=== PATIENT | female | born 1985 | race Hispanic/Latino ===

== ENCOUNTER 2020-06-18 16:15 | Inpatient (IN) | payer MEDICAID ==
[2020-06-18] MEDS ORDERED: MINERAL OIL/PETROLATUM, WHITE OPHTH OINT 3.5 GM OU PRN (16:32)
[2020-06-18] MEDS ORDERED: LIP THERAPY VASELINE TP PRN (16:32)
[2020-06-18] MEDS ORDERED: SODIUM CHLORIDE 0.9% 1000 ML 1,000 ML IV ONE (16:33)
--- NOTE | 2020-06-18 16:37 | Emergency Department Report ---
HPI - General Time Seen by Provider: 06/18/20 16:22 - HPI HPI: This is a 34-year-old female who presents to the emergency department via EMS from home after she was found unresponsive with suspicion of an overdose. Patient's boyfriend found her unresponsive and told EMS that she has a history of abusing GHB. EMS gave her 4 mg of Narcan without any response. They did intubate the patient but she vomited as soon as she was intubated so they pulled it out and suctioned her airway. She presents getting bag valve ventilation. Unknown if there is any other past medical history. Patient is a poor historian secondary to her current medical condition. The patient has snoring, shallow respirations and bradypnea and the patient was intubated for protection of airway. ED Past Medical Hx - Surgical History Hx Cholecystectomy: Yes - Social History Smoking Status: Current Every Day Smoker Substance Use Type: Alcohol, Marijuana - Medications Home Medications: Home Medications Medication Instructions Recorded Confirmed Last Taken Type Dicyclomine [Bentyl] 10 mg PO TID PRN 07/29/14 07/29/14 07/29/14 04:00 History ED Review of Systems ROS: Stated complaint: OVERDOSE/UNRESPONSIVE Other details as noted in HPI Comment: Unobtainable due to pts medical conditions Physical Exam - Physical Exam Physical Exam: GENERAL: Patient is ill-appearing and unresponsive. HENT: Normocephalic. Atraumatic. Patient has moist mucous membranes. EYES: Pupils are constricted and equal, reactive to light. NECK: Supple. Trachea is midline. CHEST/LUNGS: Clear to auscultation. Patient has shallow snoring respirations with bradypnea. HEART/CARDIOVASCULAR: Regular. There is bradycardia. There is no murmur. ABDOMEN: Abdomen is soft. Patient has normal bowel sounds. SKIN: Skin is warm and dry. NEURO: Patient is unresponsive. She will spontaneously move her toes at times. Nonverbal. Does not spontaneously open eyes. MUSCULOSKELETAL: There is no obvious deformity. ED Course - Reevaluation(s) Reevaluation #1: 06/18/20 20:45 Labs 06/18/20 06/18/20 06/18/20 16:58 17:08 17:08 WBC 8.3 RBC 5.00 Hgb 11.8 Hct 36.6 MCV 73 L MCH 24 L MCHC 32 RDW 15.2 Plt Count 190 Lymph % (Auto) 13.0 L [place] % (Auto) 6.4 Eos % (Auto) 1.9 Baso % (Auto) 0.9 Lymph # (Auto) 1.1 L [place] # (Auto) 0.5 Eos # (Auto) 0.2 Baso # (Auto) 0.1 Seg Neutrophils % 77.8 H Seg Neutrophils # 6.4 Sodium 138 Potassium 4.2 Chloride 101.6 Carbon Dioxide 21 L Anion Gap 20 BUN 10 Creatinine 0.7 Estimated GFR > 60 BUN/Creatinine Ratio 14 Glucose 120 H Lactic Acid Calcium 9.2 Total Bilirubin 0.20 AST 18 ALT 16 Alkaline Phosphatase 64 Ammonia Total Creatine Kinase 293 H Troponin T < 0.010 Total Protein 6.8 Albumin 4.1 Albumin/Globulin Ratio 1.5 TSH Urine Opiates Screen Presumptive negative Urine Methadone Screen Presumptive negative Ur Barbiturates Screen Presumptive negative Ur Phencyclidine Scrn Presumptive negative Ur Amphetamines Screen Presumptive positive U Benzodiazepines Scrn Presumptive negative Urine Cocaine Screen Presumptive negative U Marijuana (THC) Screen Presumptive negative Drugs of Abuse Note Disclamer Plasma/Serum Alcohol 06/18/20 06/18/20 06/18/20 17:08 17:08 17:08 WBC RBC Hgb Hct MCV MCH MCHC RDW Plt Count Lymph % (Auto) Harnett % (Auto) Eos % (Auto) Baso % (Auto) Lymph # (Auto) H[place]ett # (Auto) Eos # (Auto) Baso # (Auto) Seg Neutrophils % Seg Neutrophils # Sodium Potassium Chloride Carbon Dioxide Anion Gap BUN Creatinine Estimated GFR BUN/Creatinine Ratio Glucose Lactic Acid 0.60 L Calcium Total Bilirubin AST ALT Alkaline Phosphatase Ammonia 37.0 Total Creatine Kinase Troponin T Total Protein Albumin Albumin/Globulin Ratio TSH 1.430 Urine Opiates Screen Urine Methadone Screen Ur Barbiturates Screen Ur Phencyclidine Scrn Ur Amphetamines Screen U Benzodiazepines Scrn Urine Cocaine Screen U Marijuana (THC) Screen Drugs of Abuse Note Plasma/Serum Alcohol 06/18/20 17:08 WBC RBC Hgb Hct MCV MCH MCHC RDW Plt Count Lymph % (Auto) Harnett % (Auto) Eos % (Auto) Baso % (Auto) Lymph # (Auto) Harnett # (Auto) Eos # (Auto) Baso # (Auto) Seg Neutrophils % Seg Neutrophils # Sodium Potassium Chloride Carbon Dioxide Anion Gap BUN Creatinine Estimated GFR BUN/Creatinine Ratio Glucose Lactic Acid Calcium Total Bilirubin AST ALT Alkaline Phosphatase Ammonia Total Creatine Kinase Troponin T Total Protein Albumin Albumin/Globulin Ratio TSH Urine Opiates Screen Urine Methadone Screen Ur Barbiturates Screen Ur Phencyclidine Scrn Ur Amphetamines Screen U Benzodiazepines Scrn Urine Cocaine Screen U Marijuana (THC) Screen Drugs of Abuse Note Plasma/Serum Alcohol < 0.01 Reevaluation #2: 06/18/20 20:45 Vital Signs 06/18/20 06/18/20 06/18/20 16:30 16:49 17:00 Pulse Rate 76 75 68 Respiratory 10 L 17 Rate Blood Pressure 119/69 119/86 119/86 O2 Sat by Pulse 100 100 100 Oximetry 06/18/20 06/18/20 06/18/20 17:30 18:31 19:00 Pulse Rate 65 59 L Respiratory 12 13 Rate Blood Pressure 110/77 110/77 114/73 O2 Sat by Pulse 100 100 100 Oximetry 06/18/20 06/18/20 06/18/20 19:30 20:00 20:30 Pulse Rate 65 73 Respiratory 15 16 20 Rate Blood Pressure 131/86 129/83 O2 Sat by Pulse 100 100 100 Oximetry - ABG Interpretation Ph: 7.295 PCO2: 47 PO2: 445 Bicarbonate: 22 Interpretation: respiratory alkalosis - Intubation Time Out Performed: Yes Sedative: Ketamine Mg Given: 100 Paralytic: Rocuronium Mg Given: 100 Laryngoscope: other ([place] scope) Size: 4 ET Tube Size: 7.5 Tube Secured Depth (cm): 23 Tube Secured Location: lips Tube Placement Confirmation: visualized tube passing t, equal breath sounds bilat, no breath sounds over epi, confirmation by capnometr Patient Tolerated Procedure: well Intubation Complications: none ED Medical Decision Making - Lab Data Result diagrams: 06/18/20 17:08 06/18/20 17:08 - EKG Data -: EKG Interpreted by [facility] EKG shows normal: sinus rhythm, axis, intervals, QRS complexes, ST-T waves Rate: normal - EKG Data When compared to previous EKG there are: previous EKG unavailable Interpretation: normal EKG - Radiology Data Radiology results: report reviewed, image reviewed CT of the head does not show any acute intracranial process including no ischemia, shift, mass, bleeding or skull fracture. CT cervical spine wo con INDICATION / CLINICAL INFORMATION: 34 years Female; AMS, found on ground. TECHNIQUE: Axial CT images of the cervical spine were obtained. Sagittal and coronal reformatted images were produced. All CT scans at this location are performed using CT dose reduction for ALARA by means of automated exposure control. COMPARISON: None available. FINDINGS: POST-SURGICAL CHANGES: None. ALIGNMENT: Normal cervical lordosis seen without significant scoliosis. VERTEBRAE: No signs of fracture. Vertebral bodies are grossly normal in height throughout. No significant facet joint disease or osseous foraminal narrowing appreciated. INTRAVERTEBRAL DISCS:Disc spaces are fairly well- maintained throughout without significant canal stenosis. PARASPINAL SOFT TISSUES: No significant abnormality. ADDITIONAL FINDINGS: Patient is intubated. NG tube noted. Secretions seen layering in the nasopharynx. Scarring type changes seen in the right lung apex. IMPRESSION: 1. No signs of acute bony trauma to the cervical spine. CHEST 1 VIEW INDICATION / CLINICAL INFORMATION: ETT placement. COMPARISON: None available. FINDINGS: SUPPORT DEVICES: Tip of endotracheal tube is positioned approximately 3.5 cm above the jacy. Nasogastric tube tip adjacent to the level of the body of the stomach. HEART / MEDIASTINUM: No significant abnormality. LUNGS / PLEURA: There is complete atelectasis of the right upper lobe. There is volume loss in the right hemithorax. The left lung is clear.. No pneumothorax. ADDITIONAL FINDINGS: No significant additional findings. IMPRESSION: 1. Endotracheal tube appears in satisfactory position radiographically. There is complete atelectasis of the right upper lobe. - Medical Decision Making This patient presented unresponsive with a suspicion of a drug overdose based on information given to EMS by the boyfriend. EMS initially intubated the patient but they state that she vomited shortly afterwards and they pulled the tube back out. The patient had no response to 4 mg of Narcan. When the patient arrived to the emergency department she had snoring shallow respirations with bradypnea and therefore the patient was intubated for protection of airway and with signs of respiratory distress. Chest x-ray shows appropriate placement of the endotracheal tube. There is complete atelectasis of the right upper lung. CT scan of the head without contrast did not show any bleed, shift, mass, ischemia, or any other acute process. Since the patient was found down on the floor unresponsive, a CT scan of the cervical spine was also completed that did not show any fracture, subluxation, or any acute process. Patient's labs have been mostly unremarkable including CBC, metabolic panel, urinalysis, TSH, ammonia, troponin, blood alcohol level. Urine drug screen positive for amphetamines. Patient will be admitted to the hospital for further evaluation and treatment and was accepted for admission by the hospitalist, Dr. Art. Critical Care Time: Yes Critical care time in (mins) excluding proc time.: 35 Critical care attestation.: If time is entered above; I have spent that time in minutes in the direct care of this critically ill patient, excluding procedure time. Critical care time was spent on this patient in doing her initial evaluation, multiple reevaluat ions, ordering and interpretation of labs and imaging, IV fluid resuscitation, and discussion with the hospitalist service. This does not include the time spent doing the intubation procedure. Critical Care Time: 35 minutes ED Disposition Clinical Impression: Unresponsive, Amphetamine abuse Acute respiratory failure Qualifiers: Respiratory failure complication: unspecified whether with hypoxia or hypercapnia Qualified Code(s): J96.00 - Acute respiratory failure, unspecified whether with hypoxia or hypercapnia Disposition: 09 OP ADMIT IP TO THIS HOSP Is pt being admited?: Yes Condition: Serious Time of Disposition: 18:28
[2020-06-18] MEDS ORDERED: KETAMINE 500 MG/5 ML VIAL MDV ONE (16:54)
[2020-06-18] MEDS ORDERED: ROCURONIUM 50 MG/5 ML INJ IV ONE (16:54)
--- NOTE | 2020-06-18 17:11 | XRay Report ---
ABDOMEN 1 VIEW(S) INDICATION / CLINICAL INFORMATION: verify OG placement. COMPARISON: None available. FINDINGS: TUBES / LINES: OG tube tip projects at the level of the body of the stomach. BOWEL GAS PATTERN/EXTRALUMINAL GAS: There are gas-filled loop small bowel mid abdomen. There is evide nce of some fold thickening within loops in the left midabdomen. The bowel does not appear abnormally dilated. No pneumatosis or secondary signs of free air. ADDITIONAL FINDINGS: No significant additional findings. IMPRESSION: 1. Nasogastric tube appears in satisfactory position radiographically. There is fold thickening noted in loops of small bowel in the left midabdomen possibly representing an enteritis. Signer Name: Kit Beach MD Signed: 06/18/2020 5:07 PM Workstation Name: [id number]
--- NOTE | 2020-06-18 17:12 | XRay Report ---
CHEST 1 VIEW INDICATION / CLINICAL INFORMATION: ETT placement. COMPARISON: None available. FINDINGS: SUPPORT DEVICES: Tip of endotracheal tube is positioned approximately 3.5 cm above the jacy. Nasoga stric tube tip adjacent to the level of the body of the stomach. HEART / MEDIASTINUM: No significant abnormality. LUNGS / PLEURA: There is complete atelectasis of the right upper lobe. There is volume loss in the ri ght hemithorax. The left lung is clear.. No pneumothorax. ADDITIONAL FINDINGS: No significant additional findings. IMPRESSION: 1. Endotracheal tube appears in satisfactory position radiographically. There is complete atelectasis of the right upper lobe. Signer Name: Kit Beach MD Signed: 06/18/2020 5:08 PM Workstation Name: [id number]
[2020-06-18 17:18] LABS: Basophils # (Auto) 0.1 K/mm3 (0.0-0.1); Basophils % (Auto) 0.9 % (0.0-1.8); Eosinophils # (Auto) 0.2 K/mm3 (0.0-0.4); Eosinophils % (Auto) 1.9 % (0.0-4.3); Hematocrit 36.6 % (30.3-42.9); Hemoglobin 11.8 gm/dl (10.1-14.3); Lymphocytes # (Auto) 1.1 K/mm3 (1.2-5.4); Mean Corpuscular HGB Conc 32 % (30-34); Mean Corpuscular Volume 73 fl (79-97); Monocytes # (Auto) 0.5 K/mm3 (0.0-0.8); Monocytes % (Auto) 6.4 % (0.0-7.3); Platelet Count 190 K/mm3 (140-440); Red Cell Distribution Width 15.2 % (13.2-15.2)
[2020-06-18 17:40] LABS: Amphetamine Screen,Urine PRESUMPTIVE POSITIVE; Benzodiazepines Screen,Urine PRESUMPTIVE NEGATIVE; Cannabinoid Screen,Urine PRESUMPTIVE NEGATIVE; Cocaine Screen,Urine PRESUMPTIVE NEGATIVE; Methadone Screen,Urine PRESUMPTIVE NEGATIVE; Opiate Screen,Urine PRESUMPTIVE NEGATIVE
[2020-06-18 17:42] LABS: Alanine Aminotransferase 16 units/L (7-56); Albumin 4.1 g/dL (3.9-5); Blood Urea Nitrogen 10 mg/dL (7-17); Calcium 9.2 mg/dL (8.4-10.2); Hemolysis Index 16
[2020-06-18 18:02] LABS: BUN/Creatinine Ratio 14
[2020-06-18 18:11] LABS: Bacteria,Urine 1+ /HPF (Negative); Bilirubin,Urine NEG (Negative); Blood,Urine NEG (Negative); Color,Urine Yellow (Yellow); Hyaline Casts,Urine 1 /LPF; Mucus,Urine FEW /HPF; Protein,Urine <15 mg/dL mg/dL (Negative); Urobilinogen,Urine < 2.0 mg/dL (<2.0)
--- NOTE | 2020-06-18 18:14 | Cat Scan Report ---
CT cervical spine wo con INDICATION / CLINICAL INFORMATION: 34 years Female; AMS, found on ground. TECHNIQUE: Axial CT images of the cervical spine were obtained. Sagittal and coronal reformatted images were pr oduced. All CT scans at this location are performed using CT dose reduction for ALARA by means of aut omated exposure control. COMPARISON: None available. FINDINGS: POST-SURGICAL CHANGES: None. ALIGNMENT: Normal cervical lordosis seen without significant scoliosis. VERTEBRAE: No signs of fracture. Vertebral bodies are grossly normal in height throughout. No signif icant facet joint disease or osseous foraminal narrowing appreciated. INTRAVERTEBRAL DISCS:Disc spaces are fairly well-maintained throughout without significant canal sten osis. PARASPINAL SOFT TISSUES: No significant abnormality. ADDITIONAL FINDINGS: Patient is intubated. NG tube noted. Secretions seen layering in the nasopharynx . Scarring type changes seen in the right lung apex. IMPRESSION: 1. No signs of acute bony trauma to the cervical spine. Signer Name: Cruzito Astudillo MD, III Signed: 06/18/2020 6:09 PM Workstation Name: [email or web address]
--- NOTE | 2020-06-18 18:15 | Cat Scan Report ---
CT head/brain wo con INDICATION / CLINICAL INFORMATION: 34 years Female; Altered mental status. TECHNIQUE: Routine CT head without contrast. All CT scans at this location are performed using CT dos e reduction for ALARA by means of automated exposure control. COMPARISON: None. FINDINGS: BRAIN / INTRACRANIAL CONTENTS: The motion and beam hardening degrade the image quality. However, the brain appears to demonstrate appropriate attenuation. The ventricular system is within normal limits in size and configuration. There is no gross CT evidence of acute intracranial hemorrhage or signific ant mass effect. ORBITS: No significant abnormality of visualized orbits. SINUSES / MASTOIDS: There is presence of endotracheal and gastric tubes with opacification of the ganga al cavities. The paranasal sinuses are pneumatized. CRANIOCERVICAL JUNCTION: No significant abnormality. ADDITIONAL FINDINGS: None. IMPRESSION: 1. There is no clear CT evidence of acute intracranial process. Signer Name: Shaji Cyr MD Signed: 06/18/2020 6:10 PM Workstation Name: [id number]
[2020-06-18 19:14] LABS: ABG Base Excess -4.2 mmol/L (-2.0-3.0); ABG HCO3 22.3 mmol/L (20.0-26.0); ABG Methemoglobin 0.5 % (0.0-1.5); ABG Oxygen Saturation 99.6 % (95.0-99.0); ABG PH 7.295 pH Units (7.350-7.450)
[2020-06-18 19:19] LABS: ABG PO2 445.3 mm Hg (80.0-90.0)
[2020-06-18] MEDS ORDERED: LORazepam 2 MG/ML VIAL ONE ×3 (19:43→22:23)
[2020-06-18] MEDS: LORazepam 2 MG/ML VIAL IV PRN ×3 (19:45→23:34)
[2020-06-18 21:07] LABS: HCG Qualitative,Urine Negative (Negative)
[2020-06-18] MEDS ORDERED: HYDROmorphone 1 MG/1 ML INJ IV PRN (22:54)
[2020-06-18] MEDS ORDERED: ONDANSETRON 4 MG/2 ML INJ IV PRN (22:54)
[2020-06-18] MEDS ORDERED: ACETAMINOPHEN 325 MG TAB PO PRN (22:54)
--- NOTE | 2020-06-18 22:54 | History and Physical Report ---
History of Present Illness Date of examination: 06/18/20 Date of admission: 06/18/20 18:29 Chief complaint: Unresponsive for few hours History of present illness: 34-year-old female brought in by EMS after being found unresponsive with suspicion of overdose. No significant past medical history. Patient has a history of abusing GHB and amphetamines. Patient was given Narcan 4 mg without any response. Patient vomited on the field airway was suctioned. Patient was given bag mask valve ventilation. There in the emergency room patient was intubated for protection of airway. Patient has bradypnea. No fever or chills. No exposure to coronavirus as far as known. No cough prior to unresponsive episode. -medical history none. - Surgical History Cholecystectomy: Yes - Social History Smoking Status: Current Every Day Smoker Substance Use Type: Alcohol, Marijuana Family history Htn - Medications Home Medications: Home Medications Medication Instructions Recorded Confirmed Last Taken Type Dicyclomine [Bentyl] 10 mg PO TID PRN 07/29/14 07/29/14 07/29/14 04:00 History Review of Systems ROS: Stated complaint: OVERDOSE/UNRESPONSIVE Constitutional intubated Neck no neck stiffness no lymph gland enlargement Chest and lungs intubated for protection of airway CVS no chest pain no diaphoresis no palpitations GI no nausea no vomiting no diarrhea Genitourinary system no dysuria no flank pain Musculoskeletal system no muscle pains no joint pains 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 Skin no rash no itching Psychiatric no depression no homicidal or suicidal tendencies Hematologic no lymphedema or bruising Endocrine no polydipsia no polyuria no cold intolerance no heat intolerance Medications and Allergies Allergies Allergy/AdvReac Type Severity Reaction Status Date / Time No Known Allergies Allergy Verified 07/29/14 08:37 Home Medications Medication Instructions Recorded Confirmed Last Taken Type Dicyclomine [Bentyl] 10 mg PO TID PRN 07/29/14 07/29/14 07/29/14 04:00 History Active Meds: Active Medications Hydrophilic Ointment (Vaseline Lip Therapy) 1 applic TP Q2HR PRN PRN Reason: Dry Lips Propofol (Diprivan 10 Mg/Ml) 1,000 mg in 100 mls @ 3.416 mls/hr IV TITR LATRICE; Protocol Last Admin: 06/18/20 21:01 Dose: 50 mcg/kg/min, 34.156 mls/hr Documented by: Lorazepam (Ativan) 2 mg IV Q1H PRN PRN Reason: Agitation Last Admin: 06/18/20 20:49 Dose: 2 mg Documented by: Multi-Ingred Cream/Lotion/Oil/Oint (Artificial Tears Ophth Oint) 1 applic OU Q4HR PRN PRN Reason: Dry Eye(s) Exam - Physical Exam Narrative exam: Patient is intubated and unresponsive - Constitutional Vitals: Temp Pulse Resp BP Pulse Ox 97.9 F 77 18 110/71 100 06/18/20 20:00 06/18/20 22:30 06/18/20 22:30 06/18/20 22:30 06/18/20 22:30 General appearance: Present: severe distress, well-nourished - EENT Eyes: Present: PERRL - Neck Neck: Present: supple, normal ROM - Respiratory Respiratory effort: normal Respiratory: bilateral: CTA - Cardiovascular Heart rate: 78 Rhythm: regular Heart Sounds: Present: S1 & S2. Absent: rub, click - Extremities Extremities: pulses symmetrical, No edema Peripheral Pulses: within normal limits - Abdominal General gastrointestinal: Present: soft, non-tender, non-distended, normal bowel sounds Female genitourinary: Present: normal - Rectal Rectal Exam: deferred - Integumentary Integumentary: Present: clear, warm, dry - Musculoskeletal Musculoskeletal: generalized weakness - Psychiatric Psychiatric: appropriate mood/affect, other (Patient intubated) - Neurologic Neurologic: moves all extremities - Allied Health Allied health notes reviewed: nursing, case management HEART Score - HEART Score Troponin: Troponin T < 0.010 ng/mL (0.00-0.029) 06/18/20 17:08 Results - Labs CBC & Chem 7: 06/20/20 05:39 06/20/20 05:39 Labs: Laboratory Last Values WBC 8.3 K/mm3 (4.5-11.0) 06/18/20 17:08 RBC 5.00 M/mm3 (3.65-5.03) 06/18/20 17:08 Hgb 11.8 gm/dl (10.1-14.3) 06/18/20 17:08 Hct 36.6 % (30.3-42.9) 06/18/20 17:08 MCV 73 fl (79-97) L 06/18/20 17:08 MCH 24 pg (28-32) L 06/18/20 17:08 MCHC 32 % (30-34) 06/18/20 17:08 RDW 15.2 % (13.2-15.2) 06/18/20 17:08 Plt Count 190 K/mm3 (140-440) 06/18/20 17:08 Lymph % (Auto) 13.0 % (13.4-35.0) L 06/18/20 17:08 [place] % (Auto) 6.4 % (0.0-7.3) 06/18/20 17:08 Eos % (Auto) 1.9 % (0.0-4.3) 06/18/20 17:08 Baso % (Auto) 0.9 % (0.0-1.8) 06/18/20 17:08 Lymph # (Auto) 1.1 K/mm3 (1.2-5.4) L 06/18/20 17:08 [place] # (Auto) 0.5 K/mm3 (0.0-0.8) 06/18/20 17:08 Eos # (Auto) 0.2 K/mm3 (0.0-0.4) 06/18/20 17:08 Baso # (Auto) 0.1 K/mm3 (0.0-0.1) 06/18/20 17:08 Seg Neutrophils % 77.8 % (40.0-70.0) H 06/18/20 17:08 Seg Neutrophils # 6.4 K/mm3 (1.8-7.7) 06/18/20 17:08 ABG pH 7.295 pH Units (7.350-7.450) L 06/18/20 18:45 ABG pCO2 47.0 mm Hg 06/18/20 18:45 ABG pO2 445.3 mm Hg (80.0-90.0) H 06/18/20 18:45 ABG HCO3 22.3 mmol/L (20.0-26.0) 06/18/20 18:45 ABG O2 Saturation 99.6 % (95.0-99.0) H 06/18/20 18:45 ABG O2 Content 17.0 (0.0-44) 06/18/20 18:45 ABG Base Excess -4.2 mmol/L (-2.0-3.0) L 06/18/20 18:45 ABG Hemoglobin 11.5 gm/dl (12.0-16.0) L 06/18/20 18:45 ABG Carboxyhemoglobin 1.5 % (0.0-5.0) 06/18/20 18:45 ABG Methemoglobin 0.5 % (0.0-1.5) 06/18/20 18:45 Oxyhemoglobin 97.6 % (95.0-99.0) 06/18/20 18:45 FiO2 100 % 06/18/20 18:45 Sodium 138 mmol/L (137-145) 06/18/20 17:08 Potassium 4.2 mmol/L (3.6-5.0) 06/18/20 17:08 Chloride 101.6 mmol/L (98-107) 06/18/20 17:08 Carbon Dioxide 21 mmol/L (22-30) L 06/18/20 17:08 Anion Gap 20 mmol/L 06/18/20 17:08 BUN 10 mg/dL (7-17) 06/18/20 17:08 Creatinine 0.7 mg/dL (0.6-1.2) 06/18/20 17:08 Estimated GFR > 60 ml/min 06/18/20 17:08 BUN/Creatinine Ratio 14 % 06/18/20 17:08 Glucose 120 mg/dL (65-100) H 06/18/20 17:08 Lactic Acid 0.60 mmol/L (0.7-2.0) L 06/18/20 17:08 Calcium 9.2 mg/dL (8.4-10.2) 06/18/20 17:08 Total Bilirubin 0.20 mg/dL (0.1-1.2) 06/18/20 17:08 AST 18 units/L (5-40) 06/18/20 17:08 ALT 16 units/L (7-56) 06/18/20 17:08 Alkaline Phosphatase 64 units/L (35-129) 06/18/20 17:08 Ammonia 37.0 umol/L (25-60) 06/18/20 17:08 Total Creatine Kinase 293 units/L (30-135) H 06/18/20 17:08 Troponin T < 0.010 ng/mL (0.00-0.029) 06/18/20 17:08 Total Protein 6.8 g/dL (6.3-8.2) 06/18/20 17:08 Albumin 4.1 g/dL (3.9-5) 06/18/20 17:08 Albumin/Globulin Ratio 1.5 % 06/18/20 17:08 TSH 1.430 mlU/mL (0.270-4.200) 06/18/20 17:08 Urine Color Yellow (Yellow) 06/18/20 Unknown Urine Turbidity Clear (Clear) 06/18/20 Unknown Urine pH 6.0 (5.0-7.0) 06/18/20 Unknown Ur Specific [place] 1.013 (1.003-1.030) 06/18/20 Unknown Urine Protein <15 mg/dl mg/dL (Negative) 06/18/20 Unknown Urine Glucose (UA) Neg mg/dL (Negative) 06/18/20 Unknown Urine Ketones Neg mg/dL (Negative) 06/18/20 Unknown Urine Blood Neg (Negative) 06/18/20 Unknown Urine Nitrite Neg (Negative) 06/18/20 Unknown Urine Bilirubin Neg (Negative) 06/18/20 Unknown Urine Urobilinogen < 2.0 mg/dL (<2.0) 06/18/20 Unknown Ur Leukocyte Esterase Neg (Negative) 06/18/20 Unknown Urine WBC (Auto) 1.0 /HPF (0.0-6.0) 06/18/20 Unknown Urine RBC (Auto) 1.0 /HPF (0.0-6.0) 06/18/20 Unknown U Epithel Cells (Auto) 1.0 /HPF (0-13.0) 06/18/20 Unknown Urine Bacteria (Auto) 1+ /HPF (Negative) 06/18/20 Unknown Hyaline Casts 1 /LPF 06/18/20 Unknown Urine Mucus Few /HPF 06/18/20 Unknown Urine HCG, Qual Negative (Negative) 06/18/20 20:47 Urine Opiates Screen Presumptive negative 06/18/20 16:58 Urine Methadone Screen Presumptive negative 06/18/20 16:58 Ur Barbiturates Screen Presumptive negative 06/18/20 16:58 Ur Phencyclidine Scrn Presumptive negative 06/18/20 16:58 Ur Amphetamines Screen Presumptive positive 06/18/20 16:58 U Benzodiazepines Scrn Presumptive negative 06/18/20 16:58 Urine Cocaine Screen Presumptive negative 06/18/20 16:58 U Marijuana (THC) Screen Presumptive negative 06/18/20 16:58 Drugs of Abuse Note Disclamer 06/18/20 16:58 Plasma/Serum Alcohol < 0.01 % (0-0.07) 06/18/20 17:08 Short CBC 06/19/20 06/20/20 Range/Units 02:03 05:39 WBC 7.2 7.9 (4.5-11.0) K/mm3 Hgb 11.1 11.0 (10.1-14.3) gm/dl Hct 34.3 34.1 (30.3-42.9) % Plt Count 207 208 (140-440) K/mm3 BMP 06/19/20 06/20/20 02:03 05:39 Sodium 139 142 Potassium 3.4 L 3.5 L Chloride 104.2 105.8 Carbon Dioxide 24 27 BUN 9 10 Creatinine 0.6 0.6 Glucose 100 92 Calcium 7.9 L 8.0 L Liver Function 06/19/20 Range/Units 02:03 Total Bilirubin 0.40 (0.1-1.2) mg/dL AST 163 H (5-40) units/L ALT 163 H (7-56) units/L Alkaline Phosphatase 128 (35-129) units/L Albumin 3.1 L (3.9-5) g/dL [place]/IV: IV Catheter Type [Right INT / Saline Lock Antecubital] IV Catheter Type [Left Hand] INT / Saline Lock Assessment and Plan Assessment and plan: Critical care statement The high probability OF a clinically significant sudden or life-threatening deterioration of the cardiorespiratory system and endocrine system required my full and direct attention, intervention and postoperative management. The [facility] critical l care time was 40 minutes. The time is in addition to time spent performing reported procedures but includes the followin: Data review and interpretation 2: Patient assessment and monitoring of vital signs 3: Documentation 4:: Medication orders and management Advance Directives: Yes (Full code) VTE prophylaxis?: Chemical Plan of care discussed with patient/family: Yes - Patient Problems (1) Acute respiratory failure Current Visit: Yes Status: Acute Qualifiers: Respiratory failure complication: unspecified whether with hypoxia or hypercapnia Qualified Code(s): J96.00 - Acute respiratory failure, unspecified whether with hypoxia or hypercapnia Plan to address problem: Secondary to amphetamine/GHB overdose Continue wean vent support and wean as possible Dental Billing Specialist consult requested (2) Amphetamine abuse Current Visit: Yes Status: Chronic Plan to address problem: Continue weaning Counseling after extubation and when patient is more alert and oriented (3) Acute metabolic encephalopathy Current Visit: Yes Status: Acute Plan to address problem: Secondary to amphetamine abuse and respiratory failure IV fluids IV antibiotics empirically Possible aspiration pneumonia Discontinue IV antibiotics if afebrile and no high white count and no source of infection Dental Billing Specialist consult requested (4) Nicotine dependence Current Visit: Yes Status: Chronic Qualifiers: Nicotine product type: cigarettes Plan to address problem: On NicoDerm patch Patient consult because patient is intubated Will consult once the patient is extubated and alert and oriented (5) DVT prophylaxis Current Visit: Yes Status: Acute Plan to address problem: On heparin and GI prophylaxis
[2020-06-18] MEDS ORDERED: D5W/0.9% NACL 1,000 ML IV SCH (23:00)
[2020-06-18] MEDS ORDERED: CEFEPIME/NS 2 GM/100 ML 2 GM/100 ML BAG IV ONE (23:18)
[2020-06-18] MEDS ORDERED: FAMOTIDINE 20 MG/2 ML INJ IV ONE (23:19)
[2020-06-18] MEDS: CEFEPIME/NS 2 GM/100 ML 2 GM/100 ML BAG IV SCH (23:33)
[2020-06-18] MEDS: FAMOTIDINE 20 MG/2 ML INJ IV SCH (23:33)
[2020-06-18] MEDS ORDERED: fentaNYL 100 MCG/2 ML INJ IV PRN (23:47)
[2020-06-19] MEDS ORDERED: fentaNYL DRIP Premix 2,000 MCG/100 ML BAG IV ONE ×2 (00:39→11:24)
[2020-06-19] MEDS ORDERED: PROPOFOL 1,000 MG/100 ML BOTTLE IV ONE ×3 (05:58→12:25)
[2020-06-19] MEDS ORDERED: LORazepam 2 MG/ML VIAL ONE (09:30)
[2020-06-19] MEDS: LORazepam 2 MG/ML VIAL IV PRN (09:30)
[2020-06-19] MEDS: fentaNYL DRIP Premix 2,000 MCG/100 ML BAG IV SCH ×2 (11:00→17:55)
[2020-06-19] MEDS ORDERED: FENTANYL DRIP IV ONE ×2 (11:24→17:53)
[2020-06-19] MEDS ORDERED: SODIUM CHLORIDE IV ONE (12:25)
[2020-06-19] MEDS ORDERED: NORepinephrine/NS 4 MG-250 ML 4 MG/250 ML BAG IV ONE ×2 (12:25→19:22)
[2020-06-19] MEDS ORDERED: NOREPINEPHRINE IV ONE (12:25)
[2020-06-19] MEDS ORDERED: NORepinephrine/NS 4 MG-250 ML 4 MG/250 ML BAG IV SCH (12:30)
[2020-06-19] MEDS: NORepinephrine/NS 4 MG-250 ML IV SCH ×2 (12:30→19:34)
[2020-06-19] MEDS ORDERED: FAMOTIDINE 20 MG/2 ML INJ IV ONE (17:50)
[2020-06-19] MEDS ORDERED: CEFEPIME IV ONE (17:50)
[2020-06-19] MEDS ORDERED: NS IV ONE (17:50)
[2020-06-19] MEDS: CEFEPIME/NS 2 GM/100 ML 2 GM/100 ML BAG IV SCH ×3 (18:03→22:03)
[2020-06-19] MEDS: FAMOTIDINE 20 MG/2 ML INJ IV SCH ×2 (18:04→22:05)
--- NOTE | 2020-06-19 23:30 | Progress Note ---
Assessment and Plan Assessment and plan: 34-year-old female brought in by EMS after being found unresponsive with suspicion of overdose. No significant past medical history. Patient has a history of abusing GHB and amphetamines. Patient was given Narcan 4 mg without any response. Patient vomited on the field airway was suctioned. Patient was given bag mask valve ventilation. There in the emergency room patient was intubated for protection of airway. Patient has bradypnea. No fever or chills. No exposure to coronavirus as far as known. No cough prior to unresponsive episode. - Patient Problems (1) Acute respiratory failure Current Visit: Yes Status: Acute Qualifiers: Respiratory failure complication: unspecified whether with hypoxia or hypercapnia Qualified Code(s): J96.00 - Acute respiratory failure, unspecified whether with hypoxia or hypercapnia Plan to address problem: Secondary to amphetamine/GHB overdose Continue wean vent support and wean as possible Brim Presser consult requested AND DISCUSSED (2) Amphetamine abuse Current Visit: Yes Status: Chronic Plan to address problem: Continue weaning Counseling after extubation and when patient is more alert and oriented (3) Acute metabolic encephalopathy Current Visit: Yes Status: Acute Plan to address problem: Secondary to amphetamine abuse and respiratory failure IV fluids IV antibiotics empirically Possible aspiration pneumonia Discontinue IV antibiotics if afebrile and no high white count and no source of infection Brim Presser consult requested (4) Nicotine dependence Current Visit: Yes Status: Chronic Qualifiers: Nicotine product type: cigarettes Plan to address problem: On NicoDerm patch Patient consult because patient is intubated Will consult once the patient is extubated and alert and oriented (5) DVT prophylaxis Current Visit: Yes Status: Acute Plan to address problem: On heparin and GI prophylaxis The high probability of a clinically significant, sudden or life threatening deterioration of the [PULMONARY] system(s) required my full and direct attent ion, intervention and personal management. The aggregate critical care time was [35] minutes. This time is in addition to time spent performing reported procedures but includes the following: [X] Data Review and interpretation [X] Patient assessment and monitoring of vital signs [X] Documentation [X] Medication orders and management History Interval history: Patient seen and examined, currently intubated. Hospitalist Physical - Physical exam Narrative exam: VITAL SIGNS: Reviewed. GENERAL: ON MECHANICAL VENTILATION, Vital signs as documented. HEAD: No signs of head trauma. EYES: Pupils are equal. EARS: Hearing grossly intact. MOUTH: Orally intubated NECK: No adenopathy, no JVD. CHEST: Chest with clear breath sounds bilaterally. No wheezes, rales, or rhonc hi. CARDIAC: Regular rate and rhythm. S1 and S2, without murmurs, gallops, or rubs. VASCULAR: No Edema. Peripheral pulses normal and equal in all extremities. ABDOMEN: Soft, non tender and non distended. No rebound or guarding, and no masses palpated. Bowel Sounds normal. MUSCULOSKELETAL: Good range of motion of all major joints. Extremities without clubbing, cyanosis or edema. NEUROLOGIC EXAM: Sedated, PSYCHIATRIC: Mood normal. SKIN: detail exam as documented in skin assessment - Constitutional Vitals: Temp Pulse Resp BP Pulse Ox 100.1 F H 96 H 13 98/51 99 06/19/20 20:00 06/19/20 21:45 06/19/20 21:45 06/19/20 21:45 06/19/20 21:45 HEART Score - HEART Score Troponin: Troponin T < 0.010 ng/mL (0.00-0.029) 06/18/20 17:08 Results - Labs CBC & Chem 7: 06/20/20 05:39 06/20/20 05:39 Labs: Laboratory Last Values WBC 8.3 K/mm3 (4.5-11.0) 06/18/20 17:08 RBC 5.00 M/mm3 (3.65-5.03) 06/18/20 17:08 Hgb 11.8 gm/dl (10.1-14.3) 06/18/20 17:08 Hct 36.6 % (30.3-42.9) 06/18/20 17:08 MCV 73 fl (79-97) L 06/18/20 17:08 MCH 24 pg (28-32) L 06/18/20 17:08 MCHC 32 % (30-34) 06/18/20 17:08 RDW 15.2 % (13.2-15.2) 06/18/20 17:08 Plt Count 190 K/mm3 (140-440) 06/18/20 17:08 Lymph % (Auto) 13.0 % (13.4-35.0) L 06/18/20 17:08 [place] % (Auto) 6.4 % (0.0-7.3) 06/18/20 17:08 Eos % (Auto) 1.9 % (0.0-4.3) 06/18/20 17:08 Baso % (Auto) 0.9 % (0.0-1.8) 06/18/20 17:08 Lymph # (Auto) 1.1 K/mm3 (1.2-5.4) L 06/18/20 17:08 [place] # (Auto) 0.5 K/mm3 (0.0-0.8) 06/18/20 17:08 Eos # (Auto) 0.2 K/mm3 (0.0-0.4) 06/18/20 17:08 Baso # (Auto) 0.1 K/mm3 (0.0-0.1) 06/18/20 17:08 Seg Neutrophils % 77.8 % (40.0-70.0) H 06/18/20 17:08 Seg Neutrophils # 6.4 K/mm3 (1.8-7.7) 06/18/20 17:08 ABG pH 7.375 (7.320-7.450) 06/19/20 04:48 POC ABG pCO2 47.2 mmHg (32.0-48.0) 06/19/20 04:48 ABG pCO2 47.0 mm Hg 06/18/20 18:45 POC ABG pO2 189.7 mmHg (83-108) H 06/19/20 04:48 ABG pO2 445.3 mm Hg (80.0-90.0) H 06/18/20 18:45 POC ABG HCO3 27.0 06/19/20 04:48 ABG HCO3 22.3 mmol/L (20.0-26.0) 06/18/20 18:45 ABG O2 Saturation 99.6 % (95.0-99.0) H 06/18/20 18:45 ABG O2 Content 17.0 (0.0-44) 06/18/20 18:45 POC ABG Base Excess 1.3 06/19/20 04:48 ABG Base Excess -4.2 mmol/L (-2.0-3.0) L 06/18/20 18:45 ABG Hemoglobin 11.8 (12.0-17.5) L 06/19/20 04:48 ABG Oxyhemoglobin 98.4 (94-98) H 06/19/20 04:48 ABG Carboxyhemoglobin 1.5 % (0.0-5.0) 06/18/20 18:45 ABG Methemoglobin 0.3 (0.0-1.5) 06/19/20 04:48 ABG Sodium 135.5 mmol/L (136.0-145.0) L 06/19/20 04:48 ABG Potassium 3.6 mmol/L (3.40-4.50) 06/19/20 04:48 ABG Chloride 108.0 mmol/L (98-107) H 06/19/20 04:48 ABG Glucose 103 mg/dL (65-95) H 06/19/20 04:48 Oxyhemoglobin 97.6 % (95.0-99.0) 06/18/20 18:45 Carboxyhemoglobin 0.7 (0.5-1.5) 06/19/20 04:48 FiO2 40 06/19/20 04:48 Sodium 138 mmol/L (137-145) 06/18/20 17:08 Potassium 4.2 mmol/L (3.6-5.0) 06/18/20 17:08 Chloride 101.6 mmol/L (98-107) 06/18/20 17:08 Carbon Dioxide 21 mmol/L (22-30) L 06/18/20 17:08 Anion Gap 20 mmol/L 06/18/20 17:08 BUN 10 mg/dL (7-17) 06/18/20 17:08 Creatinine 0.7 mg/dL (0.6-1.2) 06/18/20 17:08 Estimated GFR > 60 ml/min 06/18/20 17:08 BUN/Creatinine Ratio 14 % 06/18/20 17:08 Glucose 120 mg/dL (65-100) H 06/18/20 17:08 Hemoglobin A1c 5.7 % (4-6) 06/18/20 17:08 Lactic Acid 0.60 mmol/L (0.7-2.0) L 06/18/20 17:08 Calcium 9.2 mg/dL (8.4-10.2) 06/18/20 17:08 Total Bilirubin 0.20 mg/dL (0.1-1.2) 06/18/20 17:08 AST 18 units/L (5-40) 06/18/20 17:08 ALT 16 units/L (7-56) 06/18/20 17:08 Alkaline Phosphatase 64 units/L (35-129) 06/18/20 17:08 Ammonia 37.0 umol/L (25-60) 06/18/20 17:08 Total Creatine Kinase 293 units/L (30-135) H 06/18/20 17:08 Troponin T < 0.010 ng/mL (0.00-0.029) 06/18/20 17:08 Total Protein 6.8 g/dL (6.3-8.2) 06/18/20 17:08 Albumin 4.1 g/dL (3.9-5) 06/18/20 17:08 Albumin/Globulin Ratio 1.5 % 06/18/20 17:08 TSH 1.430 mlU/mL (0.270-4.200) 06/18/20 17:08 Arterial Blood Glucose 103 mg/dL (65-95) H 06/19/20 04:48 Arterial Blood Ionized Calcium 4.6 mg/dL (4.6-5.3) 06/19/20 04:48 Urine Color Yellow (Yellow) 06/18/20 Unknown Urine Turbidity Clear (Clear) 06/18/20 Unknown Urine pH 6.0 (5.0-7.0) 06/18/20 Unknown Ur Specific [place] 1.013 (1.003-1.030) 06/18/20 Unknown Urine Protein <15 mg/dl mg/dL (Negative) 06/18/20 Unknown Urine Glucose (UA) Neg mg/dL (Negative) 06/18/20 Unknown Urine Ketones Neg mg/dL (Negative) 06/18/20 Unknown Urine Blood Neg (Negative) 06/18/20 Unknown Urine Nitrite Neg (Negative) 06/18/20 Unknown Urine Bilirubin Neg (Negative) 06/18/20 Unknown Urine Urobilinogen < 2.0 mg/dL (<2.0) 06/18/20 Unknown Ur Leukocyte Esterase Neg (Negative) 06/18/20 Unknown Urine WBC (Auto) 1.0 /HPF (0.0-6.0) 06/18/20 Unknown Urine RBC (Auto) 1.0 /HPF (0.0-6.0) 06/18/20 Unknown U Epithel Cells (Auto) 1.0 /HPF (0-13.0) 06/18/20 Unknown Urine Bacteria (Auto) 1+ /HPF (Negative) 06/18/20 Unknown Hyaline Casts 1 /LPF 06/18/20 Unknown Urine Mucus Few /HPF 06/18/20 Unknown Urine HCG, Qual Negative (Negative) 06/18/20 20:47 Urine Opiates Screen Presumptive negative 06/18/20 16:58 Urine Methadone Screen Presumptive negative 06/18/20 16:58 Ur Barbiturates Screen Presumptive negative 06/18/20 16:58 Ur Phencyclidine Scrn Presumptive negative 06/18/20 16:58 Ur Amphetamines Screen Presumptive positive 06/18/20 16:58 U Benzodiazepines Scrn Presumptive negative 06/18/20 16:58 Urine Cocaine Screen Presumptive negative 06/18/20 16:58 U Marijuana (THC) Screen Presumptive negative 06/18/20 16:58 Drugs of Abuse Note Disclamer 06/18/20 16:58 Plasma/Serum Alcohol < 0.01 % (0-0.07) 06/18/20 17:08 [place]/IV: IV Catheter Type [Right INT / Saline Lock Antecubital] IV Catheter Type [Left Hand] INT / Saline Lock Active Medications - Current Medications Current Medications: Generic Name Dose Route Start Last Admin Trade Name Freq PRN Reason Stop Dose Admin Acetaminophen 650 mg 06/18/20 22:54 Tylenol PO Q4H PRN Pain MILD(1-3)/Fever >100.5/KRISHNA Famotidine 20 mg 06/18/20 23:00 06/19/20 22:05 Pepcid IV 20 mg BID LATRICE Administration Fentanyl 50 mcg 06/18/20 23:47 Sublimaze IV Q10MIN PRN ANALGESIA Hydromorphone HCl 0.5 mg 06/18/20 22:54 Dilaudid IV Q3H PRN Pain , Severe (7-10) Hydrophilic Ointment 1 applic 06/18/20 16:32 Vaseline Lip Therapy TP Q2HR PRN Dry Lips Propofol 1,000 mg in 100 mls @ 3.416 mls/hr 06/18/20 17:00 06/19/20 22:04 Diprivan 10 Mg/Ml IV 40 mcg/kg/min TITR LATRICE 27.324 mls/hr Administration Protocol 5 MCG/KG/MIN Dextrose/Sodium Chloride 1,000 mls @ 100 mls/hr 06/18/20 23:00 D5ns IV DIRECT LATRICE Cefepime HCl 2 gm in 100 mls @ 200 mls/hr 06/18/20 23:00 06/19/20 22:03 Cefepime/Ns 2 Gm/100 Ml IV 200 mls/hr Q8HR LATRICE Administration Protocol Fentanyl Citrate 2,000 mcg in 100 mls @ 264.5 mls/hr 06/18/20 23:45 06/19/20 17:55 Fentanyl Drip Premix IV 2 mcg/kg/hr TITR LATRICE 10.58 mls/hr Administration Protocol 50 MCG/KG/HR Norepinephrine 4 mg in 250 mls @ 7.5 mls/hr 06/19/20 20:00 06/19/20 19:34 Levophed Drip 4 Mg/Ns 250 Ml IV 10 mcg/min TITR LATRICE 37.5 mls/hr Administration Protocol 2 MCG/MIN Lorazepam 2 mg 06/18/20 19:45 06/19/20 09:30 Ativan IV 2 mg Q1H PRN Administration Agitation Morphine Sulfate 2 mg 06/18/20 22:54 Morphine IV Q4H PRN Pain, Moderate (4-6) Multi-Ingred Cream/Lotion/Oil/Oint 1 applic 06/18/20 16:32 Artificial Tears Ophth Oint OU Q4HR PRN Dry Eye(s) Ondansetron HCl 4 mg 06/18/20 22:54 Zofran IV Q8H PRN Nausea And Vomiting Sodium Chloride 10 ml 06/19/20 10:00 06/19/20 22:05 Sodium Chloride Flush Syringe 10 Ml IV 10 ml BID LATRICE Administration Sodium Chloride 10 ml 06/18/20 22:54 Sodium Chloride Flush Syringe 10 Ml IV PRN PRN LINE FLUSH
[2020-06-20] MEDS: fentaNYL DRIP Premix 2,000 MCG/100 ML BAG IV SCH ×2 (02:03→13:16)
[2020-06-20 02:48] LABS: Hematocrit 34.3 % (30.3-42.9); Hemoglobin 11.1 gm/dl (10.1-14.3); Mean Corpuscular HGB Conc 32 % (30-34); Mean Corpuscular Volume 74 fl (79-97); Platelet Count 207 K/mm3 (140-440); Red Blood Count 4.66 M/mm3 (3.65-5.03); Red Cell Distribution Width 15.1 % (13.2-15.2)
[2020-06-20 03:05] LABS: Eosinophils % (Auto) 3.6 % (0.0-4.3); Lymphocytes % (Auto) 18.7 % (13.4-35.0)
[2020-06-20 03:06] LABS: Basophils # (Auto) 0.1 K/mm3 (0.0-0.1); Eosinophils # (Auto) 0.3 K/mm3 (0.0-0.4); Lymphocytes # (Auto) 1.4 K/mm3 (1.2-5.4); Monocytes # (Auto) 1.2 K/mm3 (0.0-0.8)
[2020-06-20 03:08] LABS: Alanine Aminotransferase 163 units/L (7-56); Albumin 3.1 g/dL (3.9-5); Blood Urea Nitrogen 9 mg/dL (7-17); Calcium 7.9 mg/dL (8.4-10.2); Hemolysis Index 0
[2020-06-20] MEDS: NORepinephrine/NS 4 MG-250 ML IV SCH (03:11)
[2020-06-20 03:22] LABS: BUN/Creatinine Ratio 15
--- NOTE | 2020-06-20 04:04 | XRay Report ---
CHEST 1 VIEW 3:05 AM INDICATION / CLINICAL INFORMATION: Respiratory failure. COMPARISON: 06/18/20. FINDINGS: SUPPORT DEVICES: The positions of the endotracheal tube and nasogastric tube have not changed. HEART / MEDIASTINUM: No significant abnormality. LUNGS / PLEURA: Complete right upper lobe atelectasis has resolved. Mild patchy atelectasis in both l ower lung zones medially has increased. No pneumothorax. ADDITIONAL FINDINGS: No significant additional findings. IMPRESSION: Mild bibasilar atelectasis. Complete right upper lobe atelectasis has resolved. Signer Name: Angel Zambrano MD Signed: 06/20/2020 3:59 AM Workstation Name: [id number]
[2020-06-20 04:26] LABS: ABG Base Excess -0.9 mmol/L (-2.0-3.0); ABG HCO3 24.8 mmol/L (20.0-26.0); ABG Methemoglobin 0.4 % (0.0-1.5); ABG Oxygen Saturation 99.2 % (95.0-99.0); ABG PCO2 45.5 mm Hg; ABG PH 7.355 pH Units (7.350-7.450)
--- NOTE | 2020-06-20 05:06 | Progress Note ---
Assessment and Plan -Acute hypoxemic respiratory failure on MVS -Undifferentiated shock on vasopressor support -Acute toxic-metabolic encephalopathy -Amphetamine abuse -Tobacco use/Nicotine dependence -Morbid obesity BMI 37.6 -Wean vasopressors for MAP >65 -Volume resuscitation- give 1L bolus of LR -VAP bundle addressed -CXR, ABG in am -Lung protective strategies, [email or web address] protocol -Daily SBT, SAT- was intubated for airway protection Anticipate she can be extubated in the next 24 hours -Wean FIO2 for O2 sats >90% -Aspiration precautions, HOB >40 - Bronchodilators with pulmonary hygiene per RT - Accuchecks with glycemic control per SSI (While critically ill target blood glucose of 140-180 mg/dL; avoid hypoglycemia) - Avoid benzodiazepines, reduce the possibility of delirium - prn analgesia per CPOT score - Maintenance of sleep-wake cycle, avoid delirium -VTE prophylaxis with Heparin -Stress ulcer prophylaxis Famotidine -Avoid nephrotoxins, adjust all medications for GFR and CrCL -Rendon catheter, can be discontinued - continue mobility protocol, frequent turning and off loading to prevent further pressure ulcers - Monitor hemodynamics closely -Supportive transfusions as indicated to keep HgB >7g/dL -COVID testing pending -Substance abuse counselling once she is extubated and is able to participate in the discussions -Nicotine withdrawal precautions CONDITION: CRITICAL PROGNOSIS: GUARDED COMPLEXITY OF MEDICAL DECISION MAKING : HIGH CODE STATUS: FULL CODE The high probability of a clinically significant, sudden or life-threatening deterioration of the [respiratory, cardiovascular & neurologic] system(s) required my full and direct attention, intervention and personal management. The aggregate critical care time was [35] minutes without overlap. Time includes spent on; [x] Data Review and interpretation [x] Patient assessment and monitoring of vital signs [x] Documentation [x] Medication orders and management Subjective Date of service: 06/20/20 Interval history: Patient is seen today for: Acute hypoxemic respiratory failure; Acute toxic, metabolic encephalopathy; Amphetamine abuse: Tobacco use disorder; Morbid obesity: PUI-COVID Seen and examined at bedside; 24hour events reviewed; nursing and respiratory care staff consulted; no adverse overnight events reported to me; resting in bed; remains on MVS, sedated. No fevers or chills, no vomiting. Rendon catheter i n place. Remains on vasopressor support, Norepinephrine at 10mcg, copious oral and tracheal secretions Objective Vital Signs - 12hr 06/19/20 06/19/20 06/19/20 17:10 17:20 17:30 Temperature Pulse Rate 95 H 92 H 94 H Respiratory 14 15 15 Rate Blood Pressure 100/54 102/52 111/62 O2 Sat by Pulse 100 100 100 Oximetry 06/19/20 06/19/20 06/19/20 17:40 17:50 18:00 Temperature Pulse Rate 97 H 96 H 96 H Respiratory 15 14 12 Rate Blood Pressure 111/62 102/57 101/55 O2 Sat by Pulse 100 100 99 Oximetry 06/19/20 06/19/20 06/19/20 18:10 18:20 18:30 Temperature Pulse Rate 96 H 96 H 97 H Respiratory 15 14 13 Rate Blood Pressure 101/55 104/55 103/53 O2 Sat by Pulse 100 100 100 Oximetry 06/19/20 06/19/20 06/19/20 19:00 19:15 19:30 Temperature Pulse Rate 98 H 100 H 99 H Respiratory 15 14 14 Rate Blood Pressure 107/53 106/57 102/49 O2 Sat by Pulse 100 100 100 Oximetry 06/19/20 06/19/20 06/19/20 19:45 20:00 20:15 Temperature 100.1 F H Pulse Rate 97 H 96 H 95 H Respiratory 13 12 14 Rate Blood Pressure 100/50 103/48 99/48 O2 Sat by Pulse 100 99 100 Oximetry 06/19/20 06/19/20 06/19/20 20:30 20:45 21:00 Temperature Pulse Rate 95 H 96 H 95 H Respiratory 13 13 13 Rate Blood Pressure 100/50 99/50 100/49 O2 Sat by Pulse 100 99 99 Oximetry 06/19/20 06/19/20 06/19/20 21:15 21:26 21:30 Temperature Pulse Rate 95 H 95 H 95 H Respiratory 13 13 Rate Blood Pressure 98/48 98/48 97/52 O2 Sat by Pulse 100 99 99 Oximetry 06/19/20 06/19/20 06/19/20 21:45 22:00 22:15 Temperature Pulse Rate 96 H 98 H 94 H Respiratory 13 13 14 Rate Blood Pressure 98/51 105/54 103/54 O2 Sat by Pulse 99 100 100 Oximetry 06/19/20 06/19/20 06/19/20 22:30 22:45 23:00 Temperature Pulse Rate 95 H 95 H 94 H Respiratory 13 13 13 Rate Blood Pressure 102/54 101/52 99/50 O2 Sat by Pulse 99 99 99 Oximetry 06/19/20 06/19/20 06/19/20 23:15 23:30 23:38 Temperature Pulse Rate 96 H 96 H 95 H Respiratory 14 13 14 Rate Blood Pressure 102/52 99/50 102/52 O2 Sat by Pulse 99 99 98 Oximetry 06/19/20 06/19/20 06/20/20 23:43 23:45 00:00 Temperature 99.1 F Pulse Rate 94 H 92 H 93 H Respiratory 13 13 Rate Blood Pressure 100/51 101/50 O2 Sat by Pulse 99 98 Oximetry 06/20/20 06/20/20 06/20/20 00:12 00:15 00:30 Temperature Pulse Rate 98 H 97 H 95 H Respiratory 13 13 Rate Blood Pressure 101/50 99/52 99/52 O2 Sat by Pulse 97 97 97 Oximetry 06/20/20 06/20/20 06/20/20 00:45 01:00 01:15 Temperature Pulse Rate 94 H 95 H 94 H Respiratory 14 12 13 Rate Blood Pressure 102/50 100/53 102/49 O2 Sat by Pulse 98 98 98 Oximetry 06/20/20 06/20/20 06/20/20 01:30 01:45 02:00 Temperature Pulse Rate 95 H 94 H 96 H Respiratory 13 13 11 L Rate Blood Pressure 102/50 98/50 100/52 O2 Sat by Pulse 98 97 97 Oximetry 06/20/20 06/20/20 06/20/20 02:15 02:30 02:45 Temperature Pulse Rate 95 H 95 H 96 H Respiratory 12 12 12 Rate Blood Pressure 101/50 101/52 99/51 O2 Sat by Pulse 98 98 98 Oximetry 06/20/20 06/20/20 06/20/20 03:00 03:15 03:30 Temperature Pulse Rate 111 H 104 H 97 H Respiratory 12 12 12 Rate Blood Pressure 83/40 103/62 108/59 O2 Sat by Pulse 98 98 98 Oximetry 06/20/20 06/20/20 06/20/20 03:45 04:00 04:15 Temperature Pulse Rate 97 H 107 H 98 H Respiratory 12 12 12 Rate Blood Pressure 107/56 98/47 113/60 O2 Sat by Pulse 98 97 97 Oximetry 06/20/20 06/20/20 06/20/20 04:30 04:35 04:45 Temperature Pulse Rate 95 H 99 H 102 H Respiratory 12 11 L Rate Blood Pressure 112/61 112/61 108/60 O2 Sat by Pulse 97 97 97 Oximetry 06/20/20 05:00 Temperature Pulse Rate 102 H Respiratory 12 Rate Blood Pressure 109/61 O2 Sat by Pulse 97 Oximetry Constitutional: no acute distress, asleep, other (sedated. Orally intubated. No patient-ventilator asynchrony) Eyes: non-icteric ENT: oropharynx moist, other (ETT at 23 cm at the lip) Neck: supple, no lymphadenopathy Effort: normal Ascultation: Bilateral: clear, diminished breath sounds Cardiovascular: regular rate and rhythm, other (S1,S2, no murmurs, gallops) Gastrointestinal: normoactive bowel sounds, soft, non-tender, non-distended, other (Rendon draining clear urine) Integumentary: normal Extremities: no cyanosis, no edema, pink and warm, pulses normal Neurologic: pupils equal and round, unable to assess, other (sedated) Psychiatric: other (sedated) CBC and BMP: 06/20/20 05:39 06/21/20 05:40 ABG, PT/INR, D-dimer: ABG ABG pH 7.355 pH Units (7.350-7.450) 06/20/20 03:50 POC ABG pCO2 47.2 mmHg (32.0-48.0) 06/19/20 04:48 ABG pCO2 45.5 mm Hg 06/20/20 03:50 POC ABG pO2 189.7 mmHg (83-108) H 06/19/20 04:48 ABG pO2 206.0 mm Hg (80.0-90.0) H 06/20/20 03:50 POC ABG HCO3 27.0 06/19/20 04:48 ABG O2 Saturation 99.2 % (95.0-99.0) H 06/20/20 03:50 Abnormal lab findings: Abnormal Labs 06/18/20 06/18/20 06/18/20 17:08 17:08 17:08 MCV 73 L MCH 24 L Lymph % (Auto) 13.0 L Lymph # (Auto) 1.1 L Bremer # (Auto) Seg Neutrophils % 77.8 H ABG pH POC ABG pO2 ABG pO2 ABG O2 Saturation ABG Base Excess ABG Hemoglobin ABG Oxyhemoglobin ABG Sodium ABG Chloride ABG Glucose Potassium Carbon Dioxide 21 L Glucose 120 H Lactic Acid 0.60 L Calcium AST ALT Total Creatine Kinase 293 H Total Protein Albumin Arterial Blood Glucose 06/18/20 06/19/20 06/19/20 18:45 02:03 02:03 MCV 74 L MCH 24 L Lymph % (Auto) Lymph # (Auto) Bremer # (Auto) 1.2 H Seg Neutrophils % ABG pH 7.295 L POC ABG pO2 ABG pO2 445.3 H ABG O2 Saturation 99.6 H ABG Base Excess -4.2 L ABG Hemoglobin 11.5 L ABG Oxyhemoglobin ABG Sodium ABG Chloride ABG Glucose Potassium 3.4 L Carbon Dioxide Glucose Lactic Acid Calcium 7.9 L AST 163 H ALT 163 H Total Creatine Kinase Total Protein 5.8 L Albumin 3.1 L Arterial Blood Glucose 06/19/20 06/20/20 04:48 03:50 MCV MCH Lymph % (Auto) Lymph # (Auto) Bremer # (Auto) Seg Neutrophils % ABG pH POC ABG pO2 189.7 H ABG pO2 206.0 H ABG O2 Saturation 99.2 H ABG Base Excess ABG Hemoglobin 11.8 L 10.8 L ABG Oxyhemoglobin 98.4 H ABG Sodium 135.5 L ABG Chloride 108.0 H ABG Glucose 103 H Potassium Carbon Dioxide Glucose Lactic Acid Calcium AST ALT Total Creatine Kinase Total Protein Albumin Arterial Blood Glucose 103 H Chest x-ray: image reviewed Allied health notes reviewed: RT
[2020-06-20] MEDS: CEFEPIME/NS 2 GM/100 ML 2 GM/100 ML BAG IV SCH ×3 (05:20→22:06)
[2020-06-20 07:27] LABS: Blood Urea Nitrogen 10 mg/dL (7-17); Hemolysis Index 0
[2020-06-20 07:53] LABS: BUN/Creatinine Ratio 17
[2020-06-20] MEDS ORDERED: LACTATED RINGERS 1,000 ML IV SCH (08:00)
[2020-06-20 08:10] LABS: Hematocrit 34.1 % (30.3-42.9); Mean Corpuscular HGB Conc 32 % (30-34); Mean Corpuscular Volume 73 fl (79-97); Platelet Count 208 K/mm3 (140-440); Red Blood Count 4.68 M/mm3 (3.65-5.03); Red Cell Distribution Width 14.8 % (13.2-15.2)
[2020-06-20] MEDS: FAMOTIDINE 20 MG/2 ML INJ IV SCH ×2 (09:00→22:06)
[2020-06-20] MEDS: ENOXAPARIN 40 MG/0.4 ML INJ SUB-Q SCH (09:00)
--- NOTE | 2020-06-20 09:13 | Consultation ---
History of Present Illness Consult date: 06/19/20 Requesting physician: SILVER CALLOWAY Reason for consult: other (Acute Respiratory Failure on MVS) History of present illness: LATE ENTRY NOTE FOR DOS 06/19/2020 (EMR was down) [facility] CONSULT NOTE (Full dictation # [id number]) Please see dictated notes for full details Medications and Allergies Allergies Allergy/AdvReac Type Severity Reaction Status Date / Time No Known Allergies Allergy Verified 07/29/14 08:37 Home Medications Medication Instructions Recorded Confirmed Last Taken Type Dicyclomine [Bentyl] 10 mg PO TID PRN 07/29/14 07/29/14 07/29/14 04:00 History Active Meds: Active Medications Acetaminophen (Tylenol) 650 mg PO Q4H PRN PRN Reason: Pain MILD(1-3)/Fever >100.5/KRISHNA Enoxaparin Sodium (Enoxaparin) 40 mg SUB-Q QDAY@1000 LATRICE Last Admin: 06/20/20 09:00 Dose: 40 mg Documented by: Famotidine (Pepcid) 20 mg IV BID LATRICE Last Admin: 06/20/20 09:00 Dose: 20 mg Documented by: Fentanyl (Sublimaze) 50 mcg IV Q10MIN PRN PRN Reason: ANALGESIA Hydromorphone HCl (Dilaudid) 0.5 mg IV Q3H PRN PRN Reason: Pain , Severe (7-10) Hydrophilic Ointment (Vaseline Lip Therapy) 1 applic TP Q2HR PRN PRN Reason: Dry Lips Propofol (Diprivan 10 Mg/Ml) 1,000 mg in 100 mls @ 3.416 mls/hr IV TITR LATRICE; Protocol Last Admin: 06/20/20 05:23 Dose: 40 mcg/kg/min, 27.324 mls/hr Documented by: Dextrose/Sodium Chloride (D5ns) 1,000 mls @ 100 mls/hr IV DIRECT LATRICE Cefepime HCl (Cefepime/Ns 2 Gm/100 Ml) 2 gm in 100 mls @ 200 mls/hr IV Q8HR LATRICE; Protocol Stop: 06/23/20 14:29 Last Admin: 06/20/20 05:20 Dose: 200 mls/hr Documented by: Fentanyl Citrate (Fentanyl Drip Premix) 2,000 mcg in 100 mls @ 264.5 mls/hr IV TITR LATRICE; Protocol Last Admin: 06/20/20 02:03 Dose: 2 mcg/kg/hr, 10.58 mls/hr Documented by: Norepinephrine (Levophed Drip 4 Mg/Ns 250 Ml) 4 mg in 250 mls @ 7.5 mls/hr IV TITR LATRICE; Protocol Last Admin: 06/20/20 03:11 Dose: 10 mcg/min, 37.5 mls/hr Documented by: Lorazepam (Ativan) 2 mg IV Q1H PRN PRN Reason: Agitation Last Admin: 06/19/20 09:30 Dose: 2 mg Documented by: Morphine Sulfate (Morphine) 2 mg IV Q4H PRN PRN Reason: Pain, Moderate (4-6) Multi-Ingred Cream/Lotion/Oil/Oint (Artificial Tears Ophth Oint) 1 applic OU Q4HR PRN PRN Reason: Dry Eye(s) Ondansetron HCl (Zofran) 4 mg IV Q8H PRN PRN Reason: Nausea And Vomiting Potassium Chloride (Potassium Chloride) 40 meq FEEDTUBE ONCE ONE Stop: 06/20/20 10:01 Last Admin: 06/20/20 09:00 Dose: 40 meq Documented by: Sodium Chloride (Sodium Chloride Flush Syringe 10 Ml) 10 ml IV BID LATRICE Last Admin: 06/19/20 22:05 Dose: 10 ml Documented by: Sodium Chloride (Sodium Chloride Flush Syringe 10 Ml) 10 ml IV PRN PRN PRN Reason: LINE FLUSH Physical Examination Vital signs: Vital Signs Pulse Resp BP Pulse Ox 76 10 L 119/69 100 06/18/20 16:30 06/18/20 16:30 06/18/20 16:30 06/18/20 16:30 Results - Laboratory Findings CBC and BMP: 06/20/20 05:39 06/20/20 05:39 ABG ABG pH 7.355 pH Units (7.350-7.450) 06/20/20 03:50 POC ABG pCO2 47.2 mmHg (32.0-48.0) 06/19/20 04:48 ABG pCO2 45.5 mm Hg 06/20/20 03:50 POC ABG pO2 189.7 mmHg (83-108) H 06/19/20 04:48 ABG pO2 206.0 mm Hg (80.0-90.0) H 06/20/20 03:50 POC ABG HCO3 27.0 06/19/20 04:48 ABG O2 Saturation 99.2 % (95.0-99.0) H 06/20/20 03:50 Abnormal lab findings: Abnormal Labs 06/18/20 06/18/20 06/18/20 17:08 17:08 17:08 MCV 73 L MCH 24 L Lymph % (Auto) 13.0 L Lymph # (Auto) 1.1 L Baker # (Auto) Seg Neutrophils % 77.8 H ABG pH POC ABG pO2 ABG pO2 ABG O2 Saturation ABG Base Excess ABG Hemoglobin ABG Oxyhemoglobin ABG Sodium ABG Chloride ABG Glucose Potassium Carbon Dioxide 21 L Glucose 120 H Lactic Acid 0.60 L Calcium AST ALT Total Creatine Kinase 293 H Total Protein Albumin Arterial Blood Glucose 06/18/20 06/19/20 06/19/20 18:45 02:03 02:03 MCV 74 L MCH 24 L Lymph % (Auto) Lymph # (Auto) Baker # (Auto) 1.2 H Seg Neutrophils % ABG pH 7.295 L POC ABG pO2 ABG pO2 445.3 H ABG O2 Saturation 99.6 H ABG Base Excess -4.2 L ABG Hemoglobin 11.5 L ABG Oxyhemoglobin ABG Sodium ABG Chloride ABG Glucose Potassium 3.4 L Carbon Dioxide Glucose Lactic Acid Calcium 7.9 L AST 163 H ALT 163 H Total Creatine Kinase Total Protein 5.8 L Albumin 3.1 L Arterial Blood Glucose 06/19/20 06/20/20 06/20/20 04:48 03:50 05:39 MCV 73 L MCH 24 L Lymph % (Auto) Lymph # (Auto) Baker # (Auto) Seg Neutrophils % ABG pH POC ABG pO2 189.7 H ABG pO2 206.0 H ABG O2 Saturation 99.2 H ABG Base Excess ABG Hemoglobin 11.8 L 10.8 L ABG Oxyhemoglobin 98.4 H ABG Sodium 135.5 L ABG Chloride 108.0 H ABG Glucose 103 H Potassium Carbon Dioxide Glucose Lactic Acid Calcium AST ALT Total Creatine Kinase Total Protein Albumin Arterial Blood Glucose 103 H 06/20/20 05:39 MCV MCH Lymph % (Auto) Lymph # (Auto) Baker # (Auto) Seg Neutrophils % ABG pH POC ABG pO2 ABG pO2 ABG O2 Saturation ABG Base Excess ABG Hemoglobin ABG Oxyhemoglobin ABG Sodium ABG Chloride ABG Glucose Potassium 3.5 L Carbon Dioxide Glucose Lactic Acid Calcium 8.0 L AST ALT Total Creatine Kinase Total Protein Albumin Arterial Blood Glucose
[2020-06-20] MEDS ORDERED: POTASSIUM CHLORIDE 20 MEQ PACKET FEEDTUBE ONE (10:00)
[2020-06-20] MEDS ORDERED: SODIUM BICARBONATE 325 MG TAB FEEDTUBE PRN (11:39)
[2020-06-20] MEDS ORDERED: SIMPLE SYRUP 15 ML FEEDTUBE PRN ×2 (11:39)
[2020-06-20] MEDS ORDERED: LIPASE 10,500/PROTEASE 25,000/AMYLASE 43,750 (UNITS) DR CAP FEEDTUBE PRN (11:39)
--- NOTE | 2020-06-20 14:03 | Consultation ---
PULMONARY CRITICAL CARE CONSULT NOTE CONSULTING PHYSICIAN: Dr. Domínguez, Emergency Room doctor. REASON FOR CONSULTATION: Acute respiratory failure, on mechanical ventilator, presumed drug overdose. CHIEF COMPLAINT AND HISTORY OF PRESENT ILLNESS: The patient is a 34-year-old female with past medical history unknown except that she is described as a current every day smoker, presented to the Emergency Room, brought in by emergency medical services after she was found unresponsive at home. Her boyfriend found her unresponsive and told EMS she does have a history of abusing GHB. She received Narcan without response. They intubated the patient, but she threw up as soon as she was intubated, so they pulled it out, suctioned the airway, was brought into the ER with bag mask ventilation. In the ER, she was found to continue to be obtunded. She also was hypoventilating and she was intubated for airway protection. We are asked to assist with management. When I stopped by to see her, she was resting in bed. She remained on the mechanical ventilator at that time, tolerating the ventilator settings, which was the assist control mode of ventilation, actually PRVC AC set rate at the time of 12, tidal volume 450, PEEP of 6, 25% FiO2. She was not responding or following commands. I do not have any history of any trauma. The above is an unfortunately as much of the history of presentation as I have. PAST MEDICAL HISTORY: She is obese and she has a history of tobacco abuse, otherwise unknown. PAST SURGICAL HISTORY: She is reported as having had a cholecystectomy. MEDICATIONS: She was on at the time I stopped by to see her were reviewed. Pertinent medications included the following: Tylenol 650 mg p.o. q. 4 hours p.r.n. mild pain or fevers, all p.o. meds via the feeding tube. Pepcid 20 mg IV b.i.d., Dilaudid 0.5 mg IV q. 3 hours p.r.n. severe pain. Propofol drip was going at 25 mcg per kilogram per minute, cefepime 2 g IV q. 8 hours, fentanyl drip 1 mcg/kg per hour. Levophed drip was going at 8 mcg per minute, Ativan 2 mg IV q. 1 hour p.r.n. agitation, Zofran 4 mg IV q. 8 hours p.r.n. nausea and vomiting. ALLERGIES: No known drug allergies. DIET: Obese lady, acute weight loss or gain history is unknown. FAMILY AND SOCIAL HISTORY: Lives in the community. Has a history of tobacco use/abuse; has a history of drug use/abuse, GHB in particular. Family and social history otherwise unknown. REVIEW OF SYSTEMS: Unobtainable secondary to patient's medical and mental condition. Since she has been in the hospital, no gross hematochezia or melena, no gross hematuria, no bloody tracheal secretions, no witnessed seizures. Review of systems otherwise unobtainable or as in the body of history above. PHYSICAL EXAMINATION: VITAL SIGNS: At presentation, she was afebrile, initial temperature 97.9 degrees Fahrenheit, pulse of 76, respiratory rate was 10, blood pressure 119/69, O2 sats 100%, inspired oxygen concentration at that time was not recorded. When I stopped by to see her, O2 sats were 98% on the above-mentioned vent settings. GENERAL: She is a young, obese female, normocephalic, atraumatic, on the mechanical ventilator without significant patient ventilator dyssynchrony. HEAD, EYES, EARS, NOSE AND THROAT: Anicteric. No conjunctival erythema. Oropharynx was moist. She had an ET tube taped around 23-24 cm at the lips. No gross jugular venous distention, no thyromegaly. NECK: Grossly, there were no palpable lymph nodes in the supraclavicular or submandibular lymph node chains. LUNGS: Auscultation of both lung mcmanus unremarkable. Lungs were clear bilaterally without wheezing. HEART: Heart sounds 1 and 2 are heard, regular rate and rhythm without overt rubs or murmurs. ABDOMEN: Soft, full, protuberant. Bowel sounds are positive, nontender, no palpable hepatosplenomegaly. EXTREMITIES: Without overt digital clubbing or cyanosis. No pedal edema. Pedal pulses are 2+ bilaterally. NEUROLOGIC: Pupils are equal, round, about 2 mm, sluggishly reactive to light. Extraocular muscle movements could not be assessed. She did have spontaneous movements to all her 4 extremities. PSYCHIATRIC: Mood and affect could not be assessed. LABORATORY DATA: From my review are as follows: Admission white cell count 8300, hemoglobin 11.8, hematocrit 36.6, and platelet count 190. No manual differential. Arterial blood gas at presentation showed a pH of 7.30, pCO2 of 47, pO2 of 445 that was on100% FiO2 at that time. Most recent gas that I could see showed a pH of 7.38, pCO2 of 47, pO2 of 188 and that was on 40% on the above-mentioned vent settings. Admission serum sodium 138, potassium 4.2, chloride 102, bicarbonate 21, BUN 10, creatinine 0.7, glucose 120. Lactic acid level was within normal limits. Liver function tests within normal limits. Troponin within normal limits. TSH within normal limits. Urinalysis was negative for nitrites and leukocyte esterase. Urine drug screen was presumptive positive for amphetamines. Alcohol level was nondetectable. Tracheal aspirate pending. Initial chest x-ray shows a right upper lobe collapse. I do not see a clear endotracheal tube in place. There is one the tip appears to be, lower level of the clavicular head, unclear if it had been retracted at this point. When I did examine her, she had good breath sounds in all lung zones. ASSESSMENT: 1. Acute respiratory failure, on mechanical ventilatory support. 2. Drug overdose, suspected GBH as well as amphetamines. 3. Oropharyngeal dysphagia. 4. Right upper lobe atelectasis. 5. Mild metabolic acidosis at presentation. 6. Obesity. PLAN: We will keep her on full mechanical ventilator support in the short term. We will begin weaning as early as tomorrow. Ventilator-associated pneumonia bundle has been introduced including aspiration precautions, head of bed about 40 degrees or more. Oxygen will be weaned to keep sats greater than or equal to about 40%. Enteral nutrition will be the feeding modality of choice. We will follow her clinically on her current antibiotic therapy, deescalate based on results of clinical and microbiologic data. Hopefully, there has been no significant mental status or central nervous system injury, I should say. A CT of the head was done at presentation as well as a CT of the C-spine. No acute intracranial process on the CT of the head and the CT of the C-spine was read as no significant acute bony trauma to the C-spine. Sedation will be titrated to RASS scale of 0 to -1. She will probably benefit from evaluation by the psychiatrist or some counseling post-extubation. Routine labs will be ordered for tomorrow. Arterial blood gases will be repeated. Chest x-ray will be repeated. Mobility protocols for pressure ulcer prophylaxis will be instituted. Daily sedation assessment trials have been instituted. She is appropriately on GI prophylaxis. She will be placed on DVT prophylaxis. Flu and pneumonia vaccination will be addressed per protocol. Thank you very much for the consult. I should mention we will wean Levophed for target mean arterial pressure of 65 mmHg. We will follow along. We will make further recommendations as the picture progresses/becomes clearer. She is critically ill on life-sustaining interventions including mechanical ventilatory support, at high risk of from cardiopulmonary system, decompensation. At this time, I spent about 35-40 minutes of critical care time without overlap and excluding any procedural time that may be necessary. JOB# [id number] AKBAR/KEVIN ALBERTO
--- NOTE | 2020-06-20 14:31 | Progress Note ---
Assessment and Plan Assessment and plan: 34-year-old female brought in by EMS after being found unresponsive with suspicion of overdose. No significant past medical history. Patient has a history of abusing GHB and amphetamines. Patient was given Narcan 4 mg without any response. Patient vomited on the field airway was suctioned. Patient was given bag mask valve ventilation. There in the emergency room patient was intubated for protection of airway. Patient has bradypnea. No fever or chills. No exposure to coronavirus as far as known. No cough prior to unresponsive episode. - Patient Problems (1) Acute respiratory failure Current Visit: Yes Status: Acute Qualifiers: Respiratory failure complication: unspecified whether with hypoxia or hypercapnia Qualified Code(s): J96.00 - Acute respiratory failure, unspecified whether with hypoxia or hypercapnia Plan to address problem: Secondary to amphetamine/GHB overdose Continue wean vent support and wean as possible Pony Edger consult requested AND DISCUSSED (2) Amphetamine abuse Current Visit: Yes Status: Chronic Plan to address problem: Continue weaning Counseling after extubation and when patient is more alert and oriented (3) Acute metabolic encephalopathy Current Visit: Yes Status: Acute Plan to address problem: Secondary to amphetamine abuse and respiratory failure IV fluids IV antibiotics empirically Possible aspiration pneumonia Discontinue IV antibiotics if afebrile and no high white count and no source of infection Pony Edger consult requested (4) Nicotine dependence Current Visit: Yes Status: Chronic Qualifiers: Nicotine product type: cigarettes Plan to address problem: On NicoDerm patch Patient consult because patient is intubated Will consult once the patient is extubated and alert and oriented (5) LFT ELEVATED will monitor (6)DVT prophylaxis Current Visit: Yes Status: Acute Plan to address problem: On heparin and GI prophylaxis The high probability of a clinically significant, sudden or life threatening deterioration of the [PULMONARY] system(s) required my full and direct attention, intervention and personal management. The aggregate critical care ti me was [35] minutes. This time is in addition to time spent performing reported procedures but includes the following: [X] Data Review and interpretation [X] Patient assessment and monitoring of vital signs [X] Documentation [X] Medication orders and management History Interval history: Patient seen and examined, currently intubated. Hospitalist Physical - Physical exam Narrative exam: VITAL SIGNS: Reviewed. GENERAL: ON MECHANICAL VENTILATION, Vital signs as documented. HEAD: No signs of head trauma. EYES: Pupils are equal. EARS: Hearing grossly intact. MOUTH: Orally intubated NECK: No adenopathy, no JVD. CHEST: Chest with clear breath sounds bilaterally. No wheezes, rales, or rhonchi. CARDIAC: Regular rate and rhythm. S1 and S2, without murmurs, gallops, or rubs. VASCULAR: No Edema. Peripheral pulses normal and equal in all extremities. ABDOMEN: Soft, non tender and non distended. No rebound or guarding, and no masses palpated. Bowel Sounds normal. MUSCULOSKELETAL: Good range of motion of all major joints. Extremities without clubbing, cyanosis or edema. NEUROLOGIC EXAM: Sedated, PSYCHIATRIC: Mood normal. SKIN: detail exam as documented in skin assessment - Constitutional Vitals: Temp Pulse Resp BP Pulse Ox 99.7 F H 107 H 13 116/55 98 06/20/20 08:00 06/20/20 12:38 06/20/20 12:15 06/20/20 12:38 06/20/20 12:38 General appearance: Present: severe distress, well-nourished HEART Score - HEART Score Troponin: Troponin T < 0.010 ng/mL (0.00-0.029) 06/18/20 17:08 Results - Labs CBC & Chem 7: 06/20/20 05:39 06/20/20 05:39 Labs: Laboratory Last Values WBC 7.9 K/mm3 (4.5-11.0) 06/20/20 05:39 RBC 4.68 M/mm3 (3.65-5.03) 06/20/20 05:39 Hgb 11.0 gm/dl (10.1-14.3) 06/20/20 05:39 Hct 34.1 % (30.3-42.9) 06/20/20 05:39 MCV 73 fl (79-97) L 06/20/20 05:39 MCH 24 pg (28-32) L 06/20/20 05:39 MCHC 32 % (30-34) 06/20/20 05:39 RDW 14.8 % (13.2-15.2) 06/20/20 05:39 Plt Count 208 K/mm3 (140-440) 06/20/20 05:39 Lymph % (Auto) 18.7 % (13.4-35.0) 06/19/20 02:03 Mcintosh % (Auto) Jigsaw Operator 06/19/20 02:03 Eos % (Auto) 3.6 % (0.0-4.3) 06/19/20 02:03 Baso % (Auto) 1.0 % (0.0-1.8) 06/19/20 02:03 Lymph # (Auto) 1.4 K/mm3 (1.2-5.4) 06/19/20 02:03 Mcintosh # (Auto) 1.2 K/mm3 (0.0-0.8) H 06/19/20 02:03 Eos # (Auto) 0.3 K/mm3 (0.0-0.4) 06/19/20 02:03 Baso # (Auto) 0.1 K/mm3 (0.0-0.1) 06/19/20 02:03 Seg Neutrophils % 60.6 % (40.0-70.0) 06/19/20 02:03 Seg Neutrophils # 4.4 K/mm3 (1.8-7.7) 06/19/20 02:03 ABG pH 7.355 pH Units (7.350-7.450) 06/20/20 03:50 POC ABG pCO2 47.2 mmHg (32.0-48.0) 06/19/20 04:48 ABG pCO2 45.5 mm Hg 06/20/20 03:50 POC ABG pO2 189.7 mmHg (83-108) H 06/19/20 04:48 ABG pO2 206.0 mm Hg (80.0-90.0) H 06/20/20 03:50 POC ABG HCO3 27.0 06/19/20 04:48 ABG HCO3 24.8 mmol/L (20.0-26.0) 06/20/20 03:50 ABG O2 Saturation 99.2 % (95.0-99.0) H 06/20/20 03:50 ABG O2 Content 15.2 (0.0-44) 06/20/20 03:50 POC ABG Base Excess 1.3 06/19/20 04:48 ABG Base Excess -0.9 mmol/L (-2.0-3.0) 06/20/20 03:50 ABG Hemoglobin 10.8 gm/dl (12.0-16.0) L 06/20/20 03:50 ABG Oxyhemoglobin 98.4 (94-98) H 06/19/20 04:48 ABG Carboxyhemoglobin 1.5 % (0.0-5.0) 06/20/20 03:50 ABG Methemoglobin 0.4 % (0.0-1.5) 06/20/20 03:50 ABG Sodium 135.5 mmol/L (136.0-145.0) L 06/19/20 04:48 ABG Potassium 3.6 mmol/L (3.40-4.50) 06/19/20 04:48 ABG Chloride 108.0 mmol/L (98-107) H 06/19/20 04:48 ABG Glucose 103 mg/dL (65-95) H 06/19/20 04:48 Oxyhemoglobin 97.3 % (95.0-99.0) 06/20/20 03:50 Carboxyhemoglobin 0.7 (0.5-1.5) 06/19/20 04:48 FiO2 25 % 06/20/20 03:50 Sodium 142 mmol/L (137-145) 06/20/20 05:39 Potassium 3.5 mmol/L (3.6-5.0) L 06/20/20 05:39 Chloride 105.8 mmol/L (98-107) 06/20/20 05:39 Carbon Dioxide 27 mmol/L (22-30) 06/20/20 05:39 Anion Gap 13 mmol/L 06/20/20 05:39 BUN 10 mg/dL (7-17) 06/20/20 05:39 Creatinine 0.6 mg/dL (0.6-1.2) 06/20/20 05:39 Estimated GFR > 60 ml/min 06/20/20 05:39 BUN/Creatinine Ratio 17 % 06/20/20 05:39 Glucose 92 mg/dL (65-100) 06/20/20 05:39 Hemoglobin A1c 5.7 % (4-6) 06/18/20 17:08 Lactic Acid 0.60 mmol/L (0.7-2.0) L 06/18/20 17:08 Calcium 8.0 mg/dL (8.4-10.2) L 06/20/20 05:39 Total Bilirubin 0.40 mg/dL (0.1-1.2) 06/19/20 02:03 AST 163 units/L (5-40) H 06/19/20 02:03 ALT 163 units/L (7-56) H 06/19/20 02:03 Alkaline Phosphatase 128 units/L (35-129) 06/19/20 02:03 Ammonia 37.0 umol/L (25-60) 06/18/20 17:08 Total Creatine Kinase 293 units/L (30-135) H 06/18/20 17:08 Troponin T < 0.010 ng/mL (0.00-0.029) 06/18/20 17:08 Total Protein 5.8 g/dL (6.3-8.2) L 06/19/20 02:03 Albumin 3.1 g/dL (3.9-5) L 06/19/20 02:03 Albumin/Globulin Ratio 1.1 % 06/19/20 02:03 TSH 1.430 mlU/mL (0.270-4.200) 06/18/20 17:08 Arterial Blood Glucose 103 mg/dL (65-95) H 06/19/20 04:48 Arterial Blood Ionized Calcium 4.6 mg/dL (4.6-5.3) 06/19/20 04:48 Urine Color Yellow (Yellow) 06/18/20 Unknown Urine Turbidity Clear (Clear) 06/18/20 Unknown Urine pH 6.0 (5.0-7.0) 06/18/20 Unknown Ur Specific [place] 1.013 (1.003-1.030) 06/18/20 Unknown Urine Protein <15 mg/dl mg/dL (Negative) 06/18/20 Unknown Urine Glucose (UA) Neg mg/dL (Negative) 06/18/20 Unknown Urine Ketones Neg mg/dL (Negative) 06/18/20 Unknown Urine Blood Neg (Negative) 06/18/20 Unknown Urine Nitrite Neg (Negative) 06/18/20 Unknown Urine Bilirubin Neg (Negative) 06/18/20 Unknown Urine Urobilinogen < 2.0 mg/dL (<2.0) 06/18/20 Unknown Ur Leukocyte Esterase Neg (Negative) 06/18/20 Unknown Urine WBC (Auto) 1.0 /HPF (0.0-6.0) 06/18/20 Unknown Urine RBC (Auto) 1.0 /HPF (0.0-6.0) 06/18/20 Unknown U Epithel Cells (Auto) 1.0 /HPF (0-13.0) 06/18/20 Unknown Urine Bacteria (Auto) 1+ /HPF (Negative) 06/18/20 Unknown Hyaline Casts 1 /LPF 06/18/20 Unknown Urine Mucus Few /HPF 06/18/20 Unknown Urine HCG, Qual Negative (Negative) 06/18/20 20:47 Urine Opiates Screen Presumptive negative 06/18/20 16:58 Urine Methadone Screen Presumptive negative 06/18/20 16:58 Ur Barbiturates Screen Presumptive negative 06/18/20 16:58 Ur Phencyclidine Scrn Presumptive negative 06/18/20 16:58 Ur Amphetamines Screen Presumptive positive 06/18/20 16:58 U Benzodiazepines Scrn Presumptive negative 06/18/20 16:58 Urine Cocaine Screen Presumptive negative 06/18/20 16:58 U Marijuana (THC) Screen Presumptive negative 06/18/20 16:58 Drugs of Abuse Note Disclamer 06/18/20 16:58 Plasma/Serum Alcohol < 0.01 % (0-0.07) 06/18/20 17:08 Microbiology: Microbiology 06/18/20 18:50 Tracheal Aspirate Sputum Culture - Preliminary [place]/IV: IV Catheter Type [] PICC Line IV Catheter Type [Right INT / Saline Lock Antecubital] IV Catheter Type [Left Hand] INT / Saline Lock Active Medications - Current Medications Current Medications: Generic Name Dose Route Start Last Admin Trade Name Freq PRN Reason Stop Dose Admin Acetaminophen 650 mg 06/18/20 22:54 Tylenol PO Q4H PRN Pain MILD(1-3)/Fever >100.5/KRISHNA Lipase/Protease/Amylase 1 each 06/20/20 11:[address] 10,500 Unit FEEDTUBE PRN PRN For Clogged Feeding Tube Enoxaparin Sodium 40 mg 06/20/20 10:00 06/20/20 09:00 Enoxaparin SUB-Q 40 mg QDAY@1000 LATRICE Administration Famotidine 20 mg 06/18/20 23:00 06/20/20 09:00 Pepcid IV 20 mg BID LATRICE Administration Fentanyl 50 mcg 06/18/20 23:47 Sublimaze IV Q10MIN PRN ANALGESIA Hydromorphone HCl 0.5 mg 06/18/20 22:54 Dilaudid IV Q3H PRN Pain , Severe (7-10) Hydrophilic Ointment 1 applic 06/18/20 16:32 Vaseline Lip Therapy TP Q2HR PRN Dry Lips Propofol 1,000 mg in 100 mls @ 3.416 mls/hr 06/18/20 17:00 06/20/20 07:35 Diprivan 10 Mg/Ml IV 0 mcg/kg/min TITR LATRICE 0 mls/hr Titration Protocol 5 MCG/KG/MIN Dextrose/Sodium Chloride 1,000 mls @ 100 mls/hr 06/18/20 23:00 D5ns IV DIRECT LATRICE Cefepime HCl 2 gm in 100 mls @ 200 mls/hr 06/18/20 23:00 06/20/20 13:16 Cefepime/Ns 2 Gm/100 Ml IV 06/23/20 14:29 200 mls/hr Q8HR LATRICE Administration Protocol Fentanyl Citrate 2,000 mcg in 100 mls @ 264.5 mls/hr 06/18/20 23:45 06/20/20 13:16 Fentanyl Drip Premix IV 2 mcg/kg/hr TITR LATRICE 10.58 mls/hr Administration Protocol 50 MCG/KG/HR Norepinephrine 4 mg in 250 mls @ 7.5 mls/hr 06/19/20 20:00 06/20/20 08:15 Levophed Drip 4 Mg/Ns 250 Ml IV 2 mcg/min TITR LATRICE 7.5 mls/hr Titration Protocol 2 MCG/MIN Lorazepam 2 mg 06/18/20 19:45 06/19/20 09:30 Ativan IV 2 mg Q1H PRN Administration Agitation Morphine Sulfate 2 mg 06/18/20 22:54 Morphine IV Q4H PRN Pain, Moderate (4-6) Multi-Ingred Cream/Lotion/Oil/Oint 1 applic 06/18/20 16:32 Artificial Tears Ophth Oint OU Q4HR PRN Dry Eye(s) Ondansetron HCl 4 mg 06/18/20 22:54 Zofran IV Q8H PRN Nausea And Vomiting Simple Syrup 15 ml 06/20/20 11:39 Simple Syrup FEEDTUBE PRN PRN Hypoglycemia Simple Syrup 30 ml 06/20/20 11:39 Simple Syrup FEEDTUBE PRN PRN Hypoglycemia Sodium Bicarbonate 325 mg 06/20/20 11:39 Sodium Bicarbonate FEEDTUBE PRN PRN For Clogged Feeding Tube Sodium Chloride 10 ml 06/19/20 10:00 06/20/20 10:17 Sodium Chloride Flush Syringe 10 Ml IV 10 ml BID LATRICE Administration Sodium Chloride 10 ml 06/18/20 22:54 Sodium Chloride Flush Syringe 10 Ml IV PRN PRN LINE FLUSH Nutrition/Malnutrition Assess - Dietary Evaluation Nutrition/Malnutrition Findings: Nutrition Notes Start: 06/20/20 11:11 Freq: Status: Active Protocol: Document 06/20/20 11:11 AL (Rec: 06/20/20 11:38 AL [email or web address]) Co-Sign 06/20/20 11:11 MK Nutrition Notes Need for Assessment generated from: MD Order Initial or Follow up Assessment Current Diagnosis Respiratory Failure Other Pertinent Diagnosis Nicotene dependence, amphetamine abuse Current Diet NPO Labs/Tests K 3.5 Pertinent Medications Levophed Height 5 ft 6 in Weight 105.8 kg [place] Body Weight (kg) 59.09 BMI 37.6 Weight Status Obese Subjective/Other Information MD consult for TF. Pt intubated Percent of energy/protein needs met: 0%/0% Burn Absent Trauma Absent Current % PO Negligible Minimum of two criteria No physical signs of malnutrition #1 Nutrition Diagnosis Inadequate oral intake Etiology Respiratory Failure As Evidenced by Signs and Symptoms pt. on ventilator Is patient on ventilator? Yes Is Patient Ambulatory and/or Out of Bed No REE-([facility]-confined to bed) 2137.596 Kcal/Kg value to use for calculation 15 Approximate Energy Requirements Using 1587 kcal/Kg Additional Notes Pro: >120 g Pro/day (>2 g/kg IBW) Fluids: 1 ml/kcal Nutrition Intervention Change Diet Order: TF Nutrition Support: Vital HP at 65 ml/hr (goal rate) Start Vital HP at 25 ml/hr and increase by 10 ml q8h until 65 ml/hr (goal rate) Flush 50 ml q4h Kcal 1,560 Protein (gm) 137 Fluid (mL) 1,304 Goal #1 Start TF Goal #2 Meet 75% of total energy and protein needs via TF Anticipated Discharge Needs: Unable to determine at this time Follow-Up By: 06/22/20 Additional Comments FU for TF start and tolerance
[2020-06-21] MEDS: fentaNYL DRIP Premix 2,000 MCG/100 ML BAG IV SCH (00:40)
[2020-06-21] MEDS: CEFEPIME/NS 2 GM/100 ML 2 GM/100 ML BAG IV SCH ×3 (05:11→21:59)
[2020-06-21 06:19] LABS: Alanine Aminotransferase 86 units/L (7-56); Albumin 2.7 g/dL (3.9-5); Blood Urea Nitrogen 10 mg/dL (7-17); Calcium 7.9 mg/dL (8.4-10.2); Hemolysis Index 9
[2020-06-21 06:28] LABS: BUN/Creatinine Ratio 20
--- NOTE | 2020-06-21 08:30 | Progress Note ---
Assessment and Plan Assessment and plan: 34-year-old female brought in by EMS after being found unresponsive with suspicion of overdose. No significant past medical history. Patient has a history of abusing GHB and amphetamines. Patient was given Narcan 4 mg without any response. Patient vomited on the field airway was suctioned. Patient was given bag mask valve ventilation. There in the emergency room patient was intubated for protection of airway. Patient has bradypnea. No fever or chills. No exposure to coronavirus as far as known. No cough prior to unresponsive episode. 06/21: Still requiring ventilator support, But with improving, weaning trial today Although was noted to have Hypercarbia on ABG, still retaining urine, will straight cath today and re-evaluate. Counselling on substance abuse once extubated. - Patient Problems (1) Acute respiratory failure Current Visit: Yes Status: Acute Qualifiers: Respiratory failure complication: unspecified whether with hypoxia or hypercapnia Qualified Code(s): J96.00 - Acute respiratory failure, unspecified whether with hypoxia or hypercapnia Plan to address problem: Secondary to amphetamine/GHB overdose Continue wean vent support and wean as possible Adapted Physical Education Specialist consult requested AND DISCUSSED (2) Amphetamine abuse Current Visit: Yes Status: Chronic Plan to address problem: Continue weaning Counseling after extubation and when patient is more alert and oriented (3) Acute metabolic encephalopathy Current Visit: Yes Status: Acute Plan to address problem: Secondary to amphetamine abuse and respiratory failure IV fluids IV antibiotics empirically Possible aspiration pneumonia Discontinue IV antibiotics if afebrile and no high white count and no source of infection Adapted Physical Education Specialist consult requested (4) Nicotine dependence Current Visit: Yes Status: Chronic Qualifiers: Nicotine product type: cigarettes Plan to address problem: On NicoDerm patch Patient consult because patient is intubated Will consult once the patient is extubated and alert and oriented (5) LFT ELEVATED will monitor (6)DVT prophylaxis Current Visit: Yes Status: Acute Plan to address problem: On heparin and GI prophylaxis The high probability of a clinically significant, sudden or life threatening deterioration of the [PULMONARY] system(s) required my full and direct attention, intervention and personal management. The aggregate critical care time was [35] minutes. This time is in addition to time spent performing reported procedures but includes the following: [X] Data Review and interpretation [X] Patient assessment and monitoring of vital signs [X] Documentation [X] Medication orders and management History Interval history: Patient seen and examined, currently intubated. more awake and responsive today, but still with urinary retention Hospitalist Physical - Physical exam Narrative exam: VITAL SIGNS: Reviewed. GENERAL: ON MECHANICAL VENTILATION, Vital signs as documented. HEAD: No signs of head trauma. EYES: Pupils are equal. EARS: Hearing grossly intact. MOUTH: Orally intubated NECK: No adenopathy, no JVD. CHEST: Chest with clear breath sounds bilaterally. No wheezes, rales, or rhonchi. CARDIAC: Regular rate and rhythm. S1 and S2, without murmurs, gallops, or rubs. VASCULAR: No Edema. Peripheral pulses normal and equal in all extremities. ABDOMEN: Soft, non tender and non distended. No rebound or guarding, and no masses palpated. Bowel Sounds normal. MUSCULOSKELETAL: Good range of motion of all major joints. Extremities without clubbing, cyanosis or edema. NEUROLOGIC EXAM: follows commands, no perceived weakness bilateral, moves all ext PSYCHIATRIC: Mood normal. SKIN: detail exam as documented in skin assessment - Constitutional Vitals: Temp Pulse Resp BP Pulse Ox 100.0 F H 93 H 15 93/54 99 06/21/20 04:00 06/21/20 07:30 06/21/20 07:30 06/21/20 07:30 06/21/20 07:30 General appearance: Present: severe distress, well-nourished HEART Score - HEART Score Troponin: Troponin T < 0.010 ng/mL (0.00-0.029) 06/18/20 17:08 Results - Labs CBC & Chem 7: 06/20/20 05:39 06/21/20 05:40 Labs: Laboratory Last Values WBC 7.9 K/mm3 (4.5-11.0) 06/20/20 05:39 RBC 4.68 M/mm3 (3.65-5.03) 06/20/20 05:39 Hgb 11.0 gm/dl (10.1-14.3) 06/20/20 05:39 Hct 34.1 % (30.3-42.9) 06/20/20 05:39 MCV 73 fl (79-97) L 06/20/20 05:39 MCH 24 pg (28-32) L 06/20/20 05:39 MCHC 32 % (30-34) 06/20/20 05:39 RDW 14.8 % (13.2-15.2) 06/20/20 05:39 Plt Count 208 K/mm3 (140-440) 06/20/20 05:39 Lymph % (Auto) 18.7 % (13.4-35.0) 06/19/20 02:03 [place] % (Auto) Raw Stock Machine Feeder 06/19/20 02:03 Eos % (Auto) 3.6 % (0.0-4.3) 06/19/20 02:03 Baso % (Auto) 1.0 % (0.0-1.8) 06/19/20 02:03 Lymph # (Auto) 1.4 K/mm3 (1.2-5.4) 06/19/20 02:03 [place] # (Auto) 1.2 K/mm3 (0.0-0.8) H 06/19/20 02:03 Eos # (Auto) 0.3 K/mm3 (0.0-0.4) 06/19/20 02:03 Baso # (Auto) 0.1 K/mm3 (0.0-0.1) 06/19/20 02:03 Seg Neutrophils % 60.6 % (40.0-70.0) 06/19/20 02:03 Seg Neutrophils # 4.4 K/mm3 (1.8-7.7) 06/19/20 02:03 ABG pH 7.304 (7.320-7.450) L 06/21/20 03:49 POC ABG pCO2 60.9 mmHg (32.0-48.0) H 06/21/20 03:49 ABG pCO2 45.5 mm Hg 06/20/20 03:50 POC ABG pO2 47.7 mmHg (83-108) L 06/21/20 03:49 ABG pO2 206.0 mm Hg (80.0-90.0) H 06/20/20 03:50 POC ABG HCO3 29.6 06/21/20 03:49 ABG HCO3 24.8 mmol/L (20.0-26.0) 06/20/20 03:50 ABG O2 Saturation 99.2 % (95.0-99.0) H 06/20/20 03:50 ABG O2 Content 15.2 (0.0-44) 06/20/20 03:50 POC ABG Base Excess 2.2 06/21/20 03:49 ABG Base Excess -0.9 mmol/L (-2.0-3.0) 06/20/20 03:50 ABG Hemoglobin 10.8 (12.0-17.5) L 06/21/20 03:49 ABG Oxyhemoglobin 98.4 (94-98) H 06/19/20 04:48 ABG Carboxyhemoglobin 1.5 % (0.0-5.0) 06/20/20 03:50 ABG Methemoglobin 0.4 % (0.0-1.5) 06/20/20 03:50 ABG Sodium 134.4 mmol/L (136.0-145.0) L 06/21/20 03:49 ABG Potassium 3.7 mmol/L (3.40-4.50) 06/21/20 03:49 ABG Chloride 107.0 mmol/L (98-107) 06/21/20 03:49 ABG Glucose 84 mg/dL (65-95) 06/21/20 03:49 Oxyhemoglobin 97.3 % (95.0-99.0) 06/20/20 03:50 Carboxyhemoglobin 0.7 (0.5-1.5) 06/19/20 04:48 FiO2 25 06/21/20 03:49 Sodium 143 mmol/L (137-145) 06/21/20 05:40 Potassium 3.6 mmol/L (3.6-5.0) 06/21/20 05:40 Chloride 105.9 mmol/L (98-107) 06/21/20 05:40 Carbon Dioxide 24 mmol/L (22-30) 06/21/20 05:40 Anion Gap 17 mmol/L 06/21/20 05:40 BUN 10 mg/dL (7-17) 06/21/20 05:40 Creatinine 0.5 mg/dL (0.6-1.2) L 06/21/20 05:40 Estimated GFR > 60 ml/min 06/21/20 05:40 BUN/Creatinine Ratio 20 % 06/21/20 05:40 Glucose 93 mg/dL (65-100) 06/21/20 05:40 Hemoglobin A1c 5.7 % (4-6) 06/18/20 17:08 Lactic Acid 0.60 mmol/L (0.7-2.0) L 06/18/20 17:08 Calcium 7.9 mg/dL (8.4-10.2) L 06/21/20 05:40 Total Bilirubin 0.20 mg/dL (0.1-1.2) 06/21/20 05:40 AST 45 units/L (5-40) H 06/21/20 05:40 ALT 86 units/L (7-56) H 06/21/20 05:40 Alkaline Phosphatase 111 units/L (35-129) 06/21/20 05:40 Ammonia 37.0 umol/L (25-60) 06/18/20 17:08 Total Creatine Kinase 293 units/L (30-135) H 06/18/20 17:08 Troponin T < 0.010 ng/mL (0.00-0.029) 06/18/20 17:08 Total Protein 5.4 g/dL (6.3-8.2) L 06/21/20 05:40 Albumin 2.7 g/dL (3.9-5) L 06/21/20 05:40 Albumin/Globulin Ratio 1.0 % 06/21/20 05:40 TSH 1.430 mlU/mL (0.270-4.200) 06/18/20 17:08 Arterial Blood Glucose 84 mg/dL (65-95) 06/21/20 03:49 Arterial Blood Ionized Calcium 4.7 mg/dL (4.6-5.3) 06/21/20 03:49 Urine Color Yellow (Yellow) 06/18/20 Unknown Urine Turbidity Clear (Clear) 06/18/20 Unknown Urine pH 6.0 (5.0-7.0) 06/18/20 Unknown Ur Specific [place] 1.013 (1.003-1.030) 06/18/20 Unknown Urine Protein <15 mg/dl mg/dL (Negative) 06/18/20 Unknown Urine Glucose (UA) Neg mg/dL (Negative) 06/18/20 Unknown Urine Ketones Neg mg/dL (Negative) 06/18/20 Unknown Urine Blood Neg (Negative) 06/18/20 Unknown Urine Nitrite Neg (Negative) 06/18/20 Unknown Urine Bilirubin Neg (Negative) 06/18/20 Unknown Urine Urobilinogen < 2.0 mg/dL (<2.0) 06/18/20 Unknown Ur Leukocyte Esterase Neg (Negative) 06/18/20 Unknown Urine WBC (Auto) 1.0 /HPF (0.0-6.0) 06/18/20 Unknown Urine RBC (Auto) 1.0 /HPF (0.0-6.0) 06/18/20 Unknown U Epithel Cells (Auto) 1.0 /HPF (0-13.0) 06/18/20 Unknown Urine Bacteria (Auto) 1+ /HPF (Negative) 06/18/20 Unknown Hyaline Casts 1 /LPF 06/18/20 Unknown Urine Mucus Few /HPF 06/18/20 Unknown Urine HCG, Qual Negative (Negative) 06/18/20 20:47 Urine Opiates Screen Presumptive negative 06/18/20 16:58 Urine Methadone Screen Presumptive negative 06/18/20 16:58 Ur Barbiturates Screen Presumptive negative 06/18/20 16:58 Ur Phencyclidine Scrn Presumptive negative 06/18/20 16:58 Ur Amphetamines Screen Presumptive positive 06/18/20 16:58 U Benzodiazepines Scrn Presumptive negative 06/18/20 16:58 Urine Cocaine Screen Presumptive negative 06/18/20 16:58 U Marijuana (THC) Screen Presumptive negative 06/18/20 16:58 Drugs of Abuse Note Disclamer 06/18/20 16:58 Plasma/Serum Alcohol < 0.01 % (0-0.07) 06/18/20 17:08 Microbiology: Microbiology 06/18/20 18:50 Tracheal Aspirate Sputum Culture - Preliminary Rendon/IV: IV Catheter Type [Left Upper PICC Line arm] IV Catheter Type [Right INT / Saline Lock Antecubital] IV Catheter Type [Left Hand] INT / Saline Lock Active Medications - Current Medications Current Medications: Generic Name Dose Route Start Last Admin Trade Name Freq PRN Reason Stop Dose Admin Acetaminophen 650 mg 06/18/20 22:54 Tylenol PO Q4H PRN Pain MILD(1-3)/Fever >100.5/KRISHNA Lipase/Protease/Amylase 1 each 06/20/20 11:[address] 10,500 Unit FEEDTUBE PRN PRN For Clogged Feeding Tube Enoxaparin Sodium 40 mg 06/20/20 10:00 06/20/20 09:00 Enoxaparin SUB-Q 40 mg QDAY@1000 LATRICE Administration Famotidine 20 mg 06/18/20 23:00 06/20/20 22:06 Pepcid IV 20 mg BID LATRICE Administration Fentanyl 50 mcg 06/18/20 23:47 Sublimaze IV Q10MIN PRN ANALGESIA Hydromorphone HCl 0.5 mg 06/18/20 22:54 Dilaudid IV Q3H PRN Pain , Severe (7-10) Hydrophilic Ointment 1 applic 06/18/20 16:32 Vaseline Lip Therapy TP Q2HR PRN Dry Lips Propofol 1,000 mg in 100 mls @ 3.416 mls/hr 06/18/20 17:00 06/21/20 05:10 Diprivan 10 Mg/Ml IV 20 mcg/kg/min TITR LATRICE 13.662 mls/hr Administration Protocol 5 MCG/KG/MIN Dextrose/Sodium Chloride 1,000 mls @ 100 mls/hr 06/18/20 23:00 D5ns IV DIRECT LATRICE Cefepime HCl 2 gm in 100 mls @ 200 mls/hr 06/18/20 23:00 06/21/20 05:11 Cefepime/Ns 2 Gm/100 Ml IV 06/23/20 14:29 200 mls/hr Q8HR LATRICE Administration Protocol Fentanyl Citrate 2,000 mcg in 100 mls @ 264.5 mls/hr 06/18/20 23:45 06/21/20 00:40 Fentanyl Drip Premix IV 2 mcg/kg/hr TITR LATRICE 10.58 mls/hr Administration Protocol 50 MCG/KG/HR Norepinephrine 4 mg in 250 mls @ 7.5 mls/hr 06/19/20 20:00 06/20/20 16:00 Levophed Drip 4 Mg/Ns 250 Ml IV 0 mcg/min TITR LATRICE 0 mls/hr Titration Protocol 2 MCG/MIN Lorazepam 2 mg 06/18/20 19:45 06/19/20 09:30 Ativan IV 2 mg Q1H PRN Administration Agitation Morphine Sulfate 2 mg 06/18/20 22:54 Morphine IV Q4H PRN Pain, Moderate (4-6) Multi-Ingred Cream/Lotion/Oil/Oint 1 applic 06/18/20 16:32 Artificial Tears Ophth Oint OU Q4HR PRN Dry Eye(s) Ondansetron HCl 4 mg 06/18/20 22:54 Zofran IV Q8H PRN Nausea And Vomiting Simple Syrup 15 ml 06/20/20 11:39 Simple Syrup FEEDTUBE PRN PRN Hypoglycemia Simple Syrup 30 ml 06/20/20 11:39 Simple Syrup FEEDTUBE PRN PRN Hypoglycemia Sodium Bicarbonate 325 mg 06/20/20 11:39 Sodium Bicarbonate FEEDTUBE PRN PRN For Clogged Feeding Tube Sodium Chloride 10 ml 06/19/20 10:00 06/20/20 22:06 Sodium Chloride Flush Syringe 10 Ml IV 10 ml BID LATRICE Administration Sodium Chloride 10 ml 06/18/20 22:54 Sodium Chloride Flush Syringe 10 Ml IV PRN PRN LINE FLUSH Nutrition/Malnutrition Assess - Dietary Evaluation Nutrition/Malnutrition Findings: Nutrition Notes Start: 06/20/20 11:1 1 Freq: Status: Active Protocol: Document 06/20/20 11:11 AL (Rec: 06/20/20 11:38 AL [email or web address]) Co-Sign 06/20/20 11:11 MK Nutrition Notes Need for Assessment generated from: MD Order Initial or Follow up Assessment Current Diagnosis Respiratory Failure Other Pertinent Diagnosis Nicotene dependence, amphetamine abuse Current Diet NPO Labs/Tests K 3.5 Pertinent Medications Levophed Height 5 ft 6 in Weight 105.8 kg [place] Body Weight (kg) 59.09 BMI 37.6 Weight Status Obese Subjective/Other Information MD consult for TF. Pt intubated Percent of energy/protein needs met: 0%/0% Burn Absent Trauma Absent Current % PO Negligible Minimum of two criteria No physical signs of malnutrition #1 Nutrition Diagnosis Inadequate oral intake Etiology Respiratory Failure As Evidenced by Signs and Symptoms pt. on ventilator Is patient on ventilator? Yes Is Patient Ambulatory and/or Out of Bed No REE-([facility]-confined to bed) 2137.596 Kcal/Kg value to use for calculation 15 Approximate Energy Requirements Using 1587 kcal/Kg Additional Notes Pro: >120 g Pro/day (>2 g/kg IBW) Fluids: 1 ml/kcal Nutrition Intervention Change Diet Order: TF Nutrition Support: Vital HP at 65 ml/hr (goal rate) Start Vital HP at 25 ml/hr and increase by 10 ml q8h until 65 ml/hr (goal rate) Flush 50 ml q4h Kcal 1,560 Protein (gm) 137 Fluid (mL) 1,304 Goal #1 Start TF Goal #2 Meet 75% of total energy and protein needs via TF Anticipated Discharge Needs: Unable to determine at this time Follow-Up By: 06/22/20 Additional Comments FU for TF start and tolerance
[2020-06-21] MEDS: LORazepam 2 MG/ML VIAL IV PRN (09:31)
[2020-06-21] MEDS: FAMOTIDINE 20 MG/2 ML INJ IV SCH ×2 (10:14→22:01)
[2020-06-21] MEDS: ENOXAPARIN 40 MG/0.4 ML INJ SUB-Q SCH (10:27)
--- NOTE | 2020-06-21 11:02 | XRay Report ---
CHEST 1 VIEW INDICATION: follow up respiratory failure. COMPARISON: One day prior. FINDINGS: Support devices: Unchanged. Heart: Stable. Lungs/Pleura: No acute pulmonary or pleural findings. IMPRESSION: 1. No significant change. Signer Name: Salvador Almonte MD Signed: 06/21/2020 10:57 AM Workstation Name: [id number]
--- NOTE | 2020-06-21 14:38 | Progress Note ---
Assessment and Plan -Acute hypoxemic respiratory failure on MVS, self-extubated -Undifferentiated shock s/p vasopressor support -Acute toxic-metabolic encephalopathy -Amphetamine abuse -Tobacco use/Nicotine dependence -Morbid obesity BMI 37.6 -Wean FIO2 for O2 sats >90% -Aspiration precautions, HOB >40 - Bronchodilators with pulmonary hygiene per RT - Accuchecks with glycemic control per SSI (While critically ill target blood glucose of 140-180 mg/dL; avoid hypoglycemia) - Avoid benzodiazepines, reduce the possibility of delirium - Maintenance of sleep-wake cycle, avoid delirium -VTE prophylaxis with Heparin -Stress ulcer prophylaxis Famotidine -Avoid nephrotoxins, adjust all medications for GFR and CrCL - continue mobility protocol, frequent turning and off loading to prevent further pressure ulcers - Monitor hemodynamics closely -Supportive transfusions as indicated to keep HgB >7g/dL -COVID testing negative -Substance abuse counselling once she is able to participate in the discussions -Nicotine withdrawal precautions Continue with ICU care until her mental status improves. Stop all sedation CONDITION: CRITICAL PROGNOSIS: GUARDED COMPLEXITY OF MEDICAL DECISION MAKING : HIGH CODE STATUS: FULL CODE The high probability of a clinically significant, sudden or life-threatening deterioration of the [respiratory, cardiovascular & neurologic] system(s) required my full and direct attention, intervention and personal management. The aggregate critical care time was [32] minutes without overlap. Time includes spent on; [x] Data Review and interpretation [x] Patient assessment and monitoring of vital signs [x] Documentation [x] Medication orders and management Subjective Date of service: 06/21/20 Interval history: Patient is seen today for: Acute hypoxemic respiratory failure; Acute toxic, metabolic encephalopathy; Amphetamine abuse: Tobacco use disorder; Morbid obesity: PUI-COVID Seen and examined at bedside; 24hour events reviewed; nursing and respiratory care staff consulted; no adverse overnight events reported to me; resting in bed; self-extubated this morning; No fevers or chills, no vomiting.Off vasopressor support, Bladder scan 600ml required straight cath. On supplemental oxygen, remains drowsy but maintaining her airway Objective Vital Signs - 12hr 06/21/20 06/21/20 06/21/20 02:45 03:00 03:15 Temperature Pulse Rate 103 H 99 H 100 H Respiratory 12 12 12 Rate Blood Pressure 110/56 104/55 106/53 O2 Sat by Pulse 97 97 98 Oximetry 06/21/20 06/21/2006/21/20 03:30 03:45 04:00 Temperature 100.0 F H Pulse Rate 100 H 97 H 96 H Respiratory 12 12 12 Rate Blood Pressure 106/54 102/54 101/54 O2 Sat by Pulse 98 97 99 Oximetry 06/21/20 06/21/20 06/21/20 04:15 04:30 04:46 Temperature Pulse Rate 97 H 98 H 98 H Respiratory 12 13 12 Rate Blood Pressure 105/53 101/55 O2 Sat by Pulse 99 98 97 Oximetry 06/21/20 06/21/20 06/21/20 05:00 05:15 05:18 Temperature Pulse Rate 100 H 94 H 100 H Respiratory 16 16 Rate Blood Pressure 108/52 111/54 O2 Sat by Pulse 100 100 98 Oximetry 06/21/20 06/21/20 06/21/20 05:30 05:45 06:00 Temperature Pulse Rate 92 H 94 H 95 H Respiratory 16 16 16 Rate Blood Pressure 94/47 97/47 102/53 O2 Sat by Pulse 99 97 98 Oximetry 06/21/20 06/21/20 06/21/20 06:15 06:30 06:45 Temperature Pulse Rate 96 H 95 H 96 H Respiratory 16 16 16 Rate Blood Pressure 107/57 101/54 103/60 O2 Sat by Pulse 97 98 99 Oximetry 06/21/20 06/21/20 06/21/20 07:00 07:15 07:20 Temperature Pulse Rate 94 H 90 98 H Respiratory 15 17 Rate Blood Pressure 102/57 105/60 O2 Sat by Pulse 99 100 96 Oximetry 06/21/20 06/21/20 06/21/20 07:30 07:45 08:00 Temperature Pulse Rate 93 H 90 93 H Respiratory 15 16 12 Rate Blood Pressure 93/54 102/57 102/73 O2 Sat by Pulse 99 100 100 Oximetry 06/21/20 06/21/20 06/21/20 08:15 08:30 08:46 Temperature Pulse Rate 89 90 89 Respiratory 16 13 18 Rate Blood Pressure 97/48 99/60 91/43 O2 Sat by Pulse 99 100 100 Oximetry 06/21/20 06/21/20 06/21/20 09:00 09:16 09:30 Temperature Pulse Rate 89 120 H 120 H Respiratory 14 26 H 12 Rate Blood Pressure 101/50 78/46 109/65 O2 Sat by Pulse 100 83 L 96 Oximetry 10/29/20 10/29/20 10/29/20 09:45 10:00 10:15 Temperature Pulse Rate 121 H 115 H 117 H Respiratory 15 14 14 Rate Blood Pressure 114/53 98/46 106/40 O2 Sat by Pulse 100 100 100 Oximetry 06/21/20 06/21/20 06/21/20 10:30 10:45 11:00 Temperature Pulse Rate 112 H 113 H 111 H Respiratory 14 14 15 Rate Blood Pressure 105/42 99/49 101/49 O2 Sat by Pulse 93 94 95 Oximetry 06/21/20 06/21/20 06/21/20 11:15 11:30 11:45 Temperature Pulse Rate 111 H 108 H 104 H Respiratory 17 14 15 Rate Blood Pressure 101/50 99/55 109/55 O2 Sat by Pulse 97 95 94 Oximetry 06/21/20 06/21/20 06/21/20 12:00 12:15 12:30 Temperature Pulse Rate 107 H 107 H 106 H Respiratory 15 18 15 Rate Blood Pressure 106/52 107/61 105/57 O2 Sat by Pulse 95 93 95 Oximetry 06/21/20 06/21/20 06/21/20 12:45 13:00 13:15 Temperature Pulse Rate 102 H 96 H 101 H Respiratory 16 16 16 Rate Blood Pressure 112/67 118/58 121/64 O2 Sat by Pulse 97 96 96 Oximetry 06/21/20 06/21/20 13:30 13:45 Temperature Pulse Rate 97 H 103 H Respiratory 18 17 Rate Blood Pressure 119/68 116/63 O2 Sat by Pulse 97 100 Oximetry Constitutional: no acute distress, lethargic, asleep Eyes: non-icteric ENT: oropharynx moist Neck: supple, no lymphadenopathy Effort: normal Ascultation: Bilateral: clear, diminished breath sounds Cardiovascular: regular rate and rhythm, other (S1,S2, no murmurs, gallops) Gastrointestinal: normoactive bowel sounds, soft, non-tender, non-distended, other (Rendon draining clear urine) Integumentary: normal Extremities: no cyanosis, no edema, pink and warm, pulses normal Neurologic: pupils equal and round, motor strength normal and (grossly, moving all extemities), unable to assess Psychiatric: other (sedated) CBC and BMP: 06/20/20 05:39 06/21/20 05:40 ABG, PT/INR, D-dimer: ABG ABG pH 7.304 (7.320-7.450) L 06/21/20 03:49 POC ABG pCO2 60.9 mmHg (32.0-48.0) H 06/21/20 03:49 ABG pCO2 45.5 mm Hg 06/20/20 03:50 POC ABG pO2 47.7 mmHg (83-108) L 06/21/20 03:49 ABG pO2 206.0 mm Hg (80.0-90.0) H 06/20/20 03:50 POC ABG HCO3 29.6 06/21/20 03:49 ABG O2 Saturation 99.2 % (95.0-99.0) H 06/20/20 03:50 Abnormal lab findings: Abnormal Labs 06/18/20 06/18/20 06/18/20 17:08 17:08 17:08 MCV 73 L MCH 24 L Lymph % (Auto) 13.0 L Lymph # (Auto) 1.1 L [place] # (Auto) Seg Neutrophils % 77.8 H ABG pH POC ABG pCO2 POC ABG pO2 ABG pO2 ABG O2 Saturation ABG Base Excess ABG Hemoglobin ABG Oxyhemoglobin ABG Sodium ABG Chloride ABG Glucose Potassium Carbon Dioxide 21 L Creatinine Glucose 120 H Lactic Acid 0.60 L Calcium AST ALT Total Creatine Kinase 293 H Total Protein Albumin Arterial Blood Glucose 06/18/20 06/19/20 06/19/20 18:45 02:03 02:03 MCV 74 L MCH 24 L Lymph % (Auto) Lymph # (Auto) [place] # (Auto) 1.2 H Seg Neutrophils % ABG pH 7.295 L POC ABG pCO2 POC ABG pO2 ABG pO2 445.3 H ABG O2 Saturation 99.6 H ABG Base Excess -4.2 L ABG Hemoglobin 11.5 L ABG Oxyhemoglobin ABG Sodium ABG Chloride ABG Glucose Potassium 3.4 L Carbon Dioxide Creatinine Glucose Lactic Acid Calcium 7.9 L AST 163 H ALT 163 H Total Creatine Kinase Total Protein 5.8 L Albumin 3.1 L Arterial Blood Glucose 06/19/20 06/20/20 06/20/20 04:48 03:50 05:39 MCV 73 L MCH 24 L Lymph % (Auto) Lymph # (Auto) [place] # (Auto) Seg Neutrophils % ABG pH POC ABG pCO2 POC ABG pO2 189.7 H ABG pO2 206.0 H ABG O2 Saturation 99.2 H ABG Base Excess ABG Hemoglobin 11.8 L 10.8 L ABG Oxyhemoglobin 98.4 H ABG Sodium 135.5 L ABG Chloride 108.0 H ABG Glucose 103 H Potassium Carbon Dioxide Creatinine Glucose Lactic Acid Calcium AST ALT Total Creatine Kinase Total Protein Albumin Arterial Blood Glucose 103 H 06/20/20 06/21/20 06/21/20 05:39 03:49 05:40 MCV MCH Lymph % (Auto) Lymph # (Auto) [place] # (Auto) Seg Neutrophils % ABG pH 7.304 L POC ABG pCO2 60.9 H POC ABG pO2 47.7 L ABG pO2 ABG O2 Saturation ABG Base Excess ABG Hemoglobin 10.8 L ABG Oxyhemoglobin ABG Sodium 134.4 L ABG Chloride ABG Glucose Potassium 3.5 L Carbon Dioxide Creatinine 0.5 L Glucose Lactic Acid Calcium 8.0 L 7.9 L AST 45 H ALT 86 H Total Creatine Kinase Total Protein 5.4 L Albumin 2.7 L Arterial Blood Glucose Chest x-ray: image reviewed Allied health notes reviewed: RT
[2020-06-21] MEDS: D5W/0.9% NACL 1,000 ML IV SCH (22:00)
[2020-06-22] MEDS: MORPHINE 2 MG/1 ML INJ IV PRN ×2 (00:18→04:51)
--- NOTE | 2020-06-22 03:22 | XRay Report ---
CHEST 1 VIEW 3:04 AM INDICATION / CLINICAL INFORMATION: Follow-up respiratory failure. COMPARISON: Yesterday. FINDINGS: SUPPORT DEVICES: The endotracheal and nasogastric tubes have been removed. The position of the left P ICC has not changed. HEART / MEDIASTINUM: Unchanged. LUNGS / PLEURA: Mild to moderate bibasilar subsegmental atelectasis has developed. No pneumothorax. ADDITIONAL FINDINGS: No significant additional findings. IMPRESSION: Interval development of mild to moderate bibasilar subsegmental atelectasis following ext ubation. Signer Name: Angel Zambrano MD Signed: 06/22/2020 3:18 AM Workstation Name: [id number]
[2020-06-22] MEDS: CEFEPIME/NS 2 GM/100 ML 2 GM/100 ML BAG IV SCH ×3 (05:30→21:46)
--- NOTE | 2020-06-22 09:46 | Ultrasound Report ---
US renal BILAT INDICATION / CLINICAL INFORMATION: R/O HYDRONEPHROSIS. COMPARISON: None available. FINDINGS: Right kidney is 10.2 cm in length, with cortical thickness of 1.9 cm. No hydronephrosis, abnormal mas s or obvious calcification. Left kidney is 10.1 cm in length, with cortical thickness of 2.0 cm. No hydronephrosis, abnormal mass or obvious calcification. Bladder is collapsed and so not well imaged. IMPRESSION: 1. Normal kidneys. Signer Name: Ignacio Schneider MD Signed: 06/22/2020 9:42 AM Workstation Name: [id number]
[2020-06-22] MEDS: ENOXAPARIN 40 MG/0.4 ML INJ SUB-Q SCH (10:37)
[2020-06-22] MEDS: D5W/0.9% NACL 1,000 ML IV SCH (10:37)
[2020-06-22] MEDS: FAMOTIDINE 20 MG/2 ML INJ IV SCH ×2 (10:37→21:47)
--- NOTE | 2020-06-22 10:40 | Progress Note ---
Assessment and Plan Assessment and plan: 34-year-old female brought in by EMS after being found unresponsive with suspicion of overdose. No significant past medical history. Patient has a history of abusing GHB and amphetamines. Patient was given Narcan 4 mg without any response. Patient vomited on the field airway was suctioned. Patient was given bag mask valve ventilation. There in the emergency room patient was intubated for protection of airway. Patient has bradypnea. No fever or chills. No exposure to coronavirus as far as known. No cough prior to unresponsive episode. 06/21: Still requiring ventilator support, But with improving, weaning trial today Although was noted to have Hypercarbia on ABG, still retaining urine, will straight cath today and re-evaluate. Counselling on substance abuse once extubated. 06/22: Profound encephalopathy still persist with some demonstration of acute psychosis. Psych will be consulted to assist with management. We will proceed with psych consult while awaiting patient to be awake before feeding. Speech has been consulted. Continue restraints at this time. I have also reached out to the patients mother for updates and left a message. - Patient Problems (1) Acute respiratory failure Current Visit: Yes Status: Acute Qualifiers: Respiratory failure complication: unspecified whether with hypoxia or hypercapnia Qualified Code(s): J96.00 - Acute respiratory failure, unspecified whether with hypoxia or hypercapnia Plan to address problem: Secondary to amphetamine/GHB overdose Continue wean vent support and wean as possible Multi Operation Forming Machine Setter consult requested AND DISCUSSED (2) Amphetamine abuse Current Visit: Yes Status: Chronic Plan to address problem: Continue weaning Counseling after extubation and when patient is more alert and oriented (3) Acute metabolic encephalopathy Current Visit: Yes Status: Acute Plan to address problem: Secondary to amphetamine abuse and respiratory failure IV fluids IV antibiotics empirically Possible aspiration pneumonia Discontinue IV antibiotics if afebrile and no high white count and no source of infection Multi Operation Forming Machine Setter consult requested (4) Nicotine dependence Current Visit: Yes Status: Chronic Qualifiers: Nicotine product type: cigarettes Plan to address problem: On NicoDerm patch Patient consult because patient is intubated Will consult once the patient is extubated and alert and oriented (5) LFT ELEVATED will monitor (6)DVT prophylaxis Current Visit: Yes Status: Acute Plan to address problem: On heparin and GI prophylaxis The high probability of a clinically significant, sudden or life threatening deterioration of the [PULMONARY] system(s) required my full and direct attention, intervention and personal management. The aggregate critical care time was [35] minutes. This time is in addition to time spent performing reported procedures but includes the following: [X] Data Review and interpretation [X] Patient assessment and monitoring of vital signs [X] Documentation [X] Medication orders and management History Interval history: Patient seen and examined, overnight patient self extubated otherwise this morning remains confused and agitated at times. Continues to require restraint Hospitalist Physical - Physical exam Narrative exam: VITAL SIGNS: Reviewed. GENERAL: This post intubation self extubated, confused. HEAD: No signs of head trauma. EYES: Pupils are equal. EARS: Hearing grossly intact. MOUTH: Moist mucous membranes NECK: No adenopathy, no JVD. CHEST: Chest with clear breath sounds bilaterally. No wheezes, rales, or rhonchi. CARDIAC: Regular rate and rhythm. S1 and S2, without murmurs, gallops, or rubs. VASCULAR: No Edema. Peripheral pulses normal and equal in all extremities. ABDOMEN: Soft, non tender and non distended. No rebound or guarding, and no masses palpated. Bowel Sounds normal. MUSCULOSKELETAL: Good range of motion of all major joints. Extremities without clubbing, cyanosis or edema. NEUROLOGIC EXAM: follows some commands, no perceived weakness bilateral, moves all ext PSYCHIATRIC: Confused SKIN: detail exam as documented in skin assessment - Constitutional Vitals: Temp Pulse Resp BP Pulse Ox 97.5 F L 125 H 27 H 118/68 100 06/22/20 03:42 06/22/20 09:30 06/22/20 09:30 06/22/20 10:16 06/22/20 10:16 General appearance: Present: severe distress, well-nourished HEART Score - HEART Score Troponin: Troponin T < 0.010 ng/mL (0.00-0.029) 06/18/20 17:08 Results - Labs CBC & Chem 7: 06/20/20 05:39 06/21/20 05:40 Labs: Laboratory Last Values WBC 7.9 K/mm3 (4.5-11.0) 06/20/20 05:39 RBC 4.68 M/mm3 (3.65-5.03) 06/20/20 05:39 Hgb 11.0 gm/dl (10.1-14.3) 06/20/20 05:39 Hct 34.1 % (30.3-42.9) 06/20/20 05:39 MCV 73 fl (79-97) L 06/20/20 05:39 MCH 24 pg (28-32) L 06/20/20 05:39 MCHC 32 % (30-34) 06/20/20 05:39 RDW 14.8 % (13.2-15.2) 06/20/20 05:39 Plt Count 208 K/mm3 (140-440) 06/20/20 05:39 Lymph % (Auto) 18.7 % (13.4-35.0) 06/19/20 02:03 Dakota % (Auto) Front End Loader Driver 06/19/20 02:03 Eos % (Auto) 3.6 % (0.0-4.3) 06/19/20 02:03 Baso % (Auto) 1.0 % (0.0-1.8) 06/19/20 02:03 Lymph # (Auto) 1.4 K/mm3 (1.2-5.4) 06/19/20 02:03 Dakota # (Auto) 1.2 K/mm3 (0.0-0.8) H 06/19/20 02:03 Eos # (Auto) 0.3 K/mm3 (0.0-0.4) 06/19/20 02:03 Baso # (Auto) 0.1 K/mm3 (0.0-0.1) 06/19/20 02:03 Seg Neutrophils % 60.6 % (40.0-70.0) 06/19/20 02:03 Seg Neutrophils # 4.4 K/mm3 (1.8-7.7) 06/19/20 02:03 ABG pH 7.304 (7.320-7.450) L 06/21/20 03:49 POC ABG pCO2 60.9 mmHg (32.0-48.0) H 06/21/20 03:49 ABG pCO2 45.5 mm Hg 06/20/20 03:50 POC ABG pO2 47.7 mmHg (83-108) L 06/21/20 03:49 ABG pO2 206.0 mm Hg (80.0-90.0) H 06/20/20 03:50 POC ABG HCO3 29.6 06/21/20 03:49 ABG HCO3 24.8 mmol/L (20.0-26.0) 06/20/20 03:50 ABG O2 Saturation 99.2 % (95.0-99.0) H 06/20/20 03:50 ABG O2 Content 15.2 (0.0-44) 06/20/20 03:50 POC ABG Base Excess 2.2 06/21/20 03:49 ABG Base Excess -0.9 mmol/L (-2.0-3.0) 06/20/20 03:50 ABG Hemoglobin 10.8 (12.0-17.5) L 06/21/20 03:49 ABG Oxyhemoglobin 98.4 (94-98) H 06/19/20 04:48 ABG Carboxyhemoglobin 1.5 % (0.0-5.0) 06/20/20 03:50 ABG Methemoglobin 0.4 % (0.0-1.5) 06/20/20 03:50 ABG Sodium 134.4 mmol/L (136.0-145.0) L 06/21/20 03:49 ABG Potassium 3.7 mmol/L (3.40-4.50) 06/21/20 03:49 ABG Chloride 107.0 mmol/L (98-107) 06/21/20 03:49 ABG Glucose 84 mg/dL (65-95) 06/21/20 03:49 Oxyhemoglobin 97.3 % (95.0-99.0) 06/20/20 03:50 Carboxyhemoglobin 0.7 (0.5-1.5) 06/19/20 04:48 FiO2 25 06/21/20 03:49 Sodium 143 mmol/L (137-145) 06/21/20 05:40 Potassium 3.6 mmol/L (3.6-5.0) 06/21/20 05:40 Chloride 105.9 mmol/L (98-107) 06/21/20 05:40 Carbon Dioxide 24 mmol/L (22-30) 06/21/20 05:40 Anion Gap 17 mmol/L 06/21/20 05:40 BUN 10 mg/dL (7-17) 06/21/20 05:40 Creatinine 0.5 mg/dL (0.6-1.2) L 06/21/20 05:40 Estimated GFR > 60 ml/min 06/21/20 05:40 BUN/Creatinine Ratio 20 % 06/21/20 05:40 Glucose 93 mg/dL (65-100) 06/21/20 05:40 Hemoglobin A1c 5.7 % (4-6) 06/18/20 17:08 Lactic Acid 0.60 mmol/L (0.7-2.0) L 06/18/20 17:08 Calcium 7.9 mg/dL (8.4-10.2) L 06/21/20 05:40 Total Bilirubin 0.20 mg/dL (0.1-1.2) 06/21/20 05:40 AST 45 units/L (5-40) H 06/21/20 05:40 ALT 86 units/L (7-56) H 06/21/20 05:40 Alkaline Phosphatase 111 units/L (35-129) 06/21/20 05:40 Ammonia 37.0 umol/L (25-60) 06/18/20 17:08 Total Creatine Kinase 293 units/L (30-135) H 06/18/20 17:08 Troponin T < 0.010 ng/mL (0.00-0.029) 06/18/20 17:08 Total Protein 5.4 g/dL (6.3-8.2) L 06/21/20 05:40 Albumin 2.7 g/dL (3.9-5) L 06/21/20 05:40 Albumin/Globulin Ratio 1.0 % 06/21/20 05:40 TSH 1.430 mlU/mL (0.270-4.200) 06/18/20 17:08 Arterial Blood Glucose 84 mg/dL (65-95) 06/21/20 03:49 Arterial Blood Ionized Calcium 4.7 mg/dL (4.6-5.3) 06/21/20 03:49 Urine Color Yellow (Yellow) 06/18/20 Unknown Urine Turbidity Clear (Clear) 06/18/20 Unknown Urine pH 6.0 (5.0-7.0) 06/18/20 Unknown Ur Specific Holden 1.013 (1.003-1.030) 06/18/20 Unknown Urine Protein <15 mg/dl mg/dL (Negative) 06/18/20 Unknown Urine Glucose (UA) Neg mg/dL (Negative) 06/18/20 Unknown Urine Ketones Neg mg/dL (Negative) 06/18/20 Unknown Urine Blood Neg (Negative) 06/18/20 Unknown Urine Nitrite Neg (Negative) 06/18/20 Unknown Urine Bilirubin Neg (Negative) 06/18/20 Unknown Urine Urobilinogen < 2.0 mg/dL (<2.0) 06/18/20 Unknown Ur Leukocyte Esterase Neg (Negative) 06/18/20 Unknown Urine WBC (Auto) 1.0 /HPF (0.0-6.0) 06/18/20 Unknown Urine RBC (Auto) 1.0 /HPF (0.0-6.0) 06/18/20 Unknown U Epithel Cells (Auto) 1.0 /HPF (0-13.0) 06/18/20 Unknown Urine Bacteria (Auto) 1+ /HPF (Negative) 06/18/20 Unknown Hyaline Casts 1 /LPF 06/18/20 Unknown Urine Mucus Few /HPF 06/18/20 Unknown Urine HCG, Qual Negative (Negative) 06/18/20 20:47 Urine Opiates Screen Presumptive negative 06/18/20 16:58 Urine Methadone Screen Presumptive negative 06/18/20 16:58 Ur Barbiturates Screen Presumptive negative 06/18/20 16:58 Ur Phencyclidine Scrn Presumptive negative 06/18/20 16:58 Ur Amphetamines Screen Presumptive positive 06/18/20 16:58 U Benzodiazepines Scrn Presumptive negative 06/18/20 16:58 Urine Cocaine Screen Presumptive negative 06/18/20 16:58 U Marijuana (THC) Screen Presumptive negative 06/18/20 16:58 Drugs of Abuse Note Disclamer 06/18/20 16:58 Plasma/Serum Alcohol < 0.01 % (0-0.07) 06/18/20 17:08 Coronavirus (PCR) Negative (Negative) 06/21/20 10:49 Rendon/IV: IV Catheter Type [Left Upper PICC Line arm] IV Catheter Type [Right INT / Saline Lock Antecubital] IV Catheter Type [Left Hand] INT / Saline Lock Active Medications - Current Medications Current Medications: Generic Name Dose Route Start Last Admin Trade Name Freq PRN Reason Stop Dose Admin Acetaminophen 650 mg 06/18/20 22:54 Tylenol PO Q4H PRN Pain MILD(1-3)/Fever >100.5/KRISHNA Lipase/Protease/Amylase 1 each 06/20/20 11:39 Pancreodette Valdez 10,500 Unit FEEDTUBE PRN PRN For Clogged Feeding Tube Enoxaparin Sodium 40 mg 06/20/20 10:00 06/21/20 10:27 Enoxaparin SUB-Q 40 mg QDAY@1000 LATRICE Administration Famotidine 20 mg 06/18/20 23:00 06/21/20 22:01 Pepcid IV 20 mg BID LATRICE Administration Hydrophilic Ointment 1 applic 06/18/20 16:32 Vaseline Lip Therapy TP Q2HR PRN Dry Lips Cefepime HCl 2 gm in 100 mls @ 200 mls/hr 06/18/20 23:00 06/22/20 05:30 Cefepime/Ns 2 Gm/100 Ml IV 06/23/20 14:29 200 mls/hr Q8HR LATRICE Administration Protocol Dextrose/Sodium Chloride 1,000 mls @ 75 mls/hr 06/21/20 21:00 06/21/20 22:00 D5ns IV 75 mls/hr DIRECT LATRICE Administration Morphine Sulfate 2 mg 06/18/20 22:54 06/22/20 04:51 Morphine IV 2 mg Q4H PRN Administration Pain, Moderate (4-6) Multi-Ingred Cream/Lotion/Oil/Oint 1 applic 06/18/20 16:32 Artificial Tears Ophth Oint OU Q4HR PRN Dry Eye(s) Ondansetron HCl 4 mg 06/18/20 22:54 Zofran IV Q8H PRN Nausea And Vomiting Simple Syrup 15 ml 06/20/20 11:39 Simple Syrup FEEDTUBE PRN PRN Hypoglycemia Simple Syrup 30 ml 06/20/20 11:39 Simple Syrup FEEDTUBE PRN PRN Hypoglycemia Sodium Bicarbonate 325 mg 06/20/20 11:39 Sodium Bicarbonate FEEDTUBE PRN PRN For Clogged Feeding Tube Sodium Chloride 10 ml 06/19/20 10:00 06/21/20 22:01 Sodium Chloride Flush Syringe 10 Ml IV 10 ml BID LATRICE Administration Sodium Chloride 10 ml 06/18/20 22:54 Sodium Chloride Flush Syringe 10 Ml IV PRN PRN LINE FLUSH Nutrition/Malnutrition Assess - Dietary Evaluation Nutrition/Malnutrition Findings: Nutrition Notes Start: 06/20/20 11:11 Freq: Status: Active Protocol: Document 06/21/20 13:43 ALAN (Rec: 06/21/20 13:46 ALAN [id number]) Co-Sign 06/21/20 13:43 DONI Nutrition Notes Initial or Follow up Brief Note Current Diagnosis Respiratory Failure Other Pertinent Diagnosis Nicotene dependence, amphetamine abuse Current Diet Vital HP at 65ml/hr Subjective/Other Information F/u TF start. Pt exbutated per respiratory therapist note. TF not started/running. Recommend diet advancement as medically able. Nutrition Intervention Follow-Up By: 06/25/20 Additional Comments F/u diet advancement
[2020-06-22] MEDS ORDERED: LORazepam 2 MG/ML VIAL IV STA (11:14)
[2020-06-22] MEDS ORDERED: HALOPERIDOL LACTATE 5 MG/1 ML INJ IV ONE (12:00)
--- NOTE | 2020-06-22 13:22 | Progress Note ---
Assessment and Plan Acute respiratory failure, on mechanical ventilatory support. Drug overdose, suspected GBH as well as amphetamines. Oropharyngeal dysphagia. Right upper lobe atelectasis. Mild metabolic acidosis at presentation. Obesity. - supplemental oxygen to keep O2 sats > 90% - prn bronchodilators (RUDDY) with pulm hygiene per RT - avoid nephrotoxins, renally dose all medications - mobility protocols to prevent pressure ulcers - PT/OT as tolerated - prn analgesia per pain score - accuchecks with glycemic control per SSI for target blood glucose < 180 mg/dL - Smoking cessation strongly counseled at the bedside - home oxygen evaluation at discharge - GI & VTE prophylaxis - Flu & pneumovax per protocol - continue other care per attending / other consultants ... re-evaluate in am & prn Subjective Date of service: 06/22/20 Principal diagnosis: Ac resp failure; Drug overdose; RUL atelectasis; Obesity. Interval history: Patient is seen today for: Acute respiratory failure s/p MVS; Drug overdose, suspected GBH as well as amphetamines; Oropharyngeal dysphagia; Right upper lobe atelectasis; Mild metabolic acidosis at presentation; Obesity. Seen and examined at bedside; 24hour events reviewed; nursing and respiratory care staff consulted; no adverse overnight events reported to me; resting peacefully in bed; remains on CIWA protocol; No N/V/F/C Objective Vital Signs - 12hr 06/22/20 06/22/20 06/22/20 01:30 01:45 02:00 Temperature Pulse Rate 99 H 98 H 93 H Respiratory 17 17 17 Rate Blood Pressure 116/56 113/69 103/64 O2 Sat by Pulse 100 98 100 Oximetry 06/22/20 06/22/20 06/22/20 02:15 02:30 02:45 Temperature Pulse Rate 85 89 90 Respiratory 18 20 19 Rate Blood Pressure 108/62 108/65 112/64 O2 Sat by Pulse 97 99 100 Oximetry 06/22/20 06/22/20 06/22/20 03:00 03:15 03:30 Temperature Pulse Rate 108 H 91 H 95 H Respiratory 20 20 19 Rate Blood Pressure 112/64 105/66 120/63 O2 Sat by Pulse 100 99 100 Oximetry 06/22/20 06/22/20 06/22/20 03:42 03:45 04:00 Temperature 97.5 F L Pulse Rate 92 H 92 H Respiratory 18 18 Rate Blood Pressure 113/62 112/64 O2 Sat by Pulse 100 100 Oximetry 06/22/20 06/22/20 06/22/20 04:15 04:30 04:45 Temperature Pulse Rate 85 90 88 Respiratory 22 17 17 Rate Blood Pressure 108/66 101/71 121/67 O2 Sat by Pulse 100 100 100 Oximetry 06/22/06/22/20 06/22/20 05:00 05:16 05:30 Temperature Pulse Rate 102 H 110 H 95 H Respiratory 22 15 19 Rate Blood Pressure 106/62 98/77 118/60 O2 Sat by Pulse 99 88 Oximetry 06/22/2006/22/06/22/20 05:45 06:00 06:15 Temperature Pulse Rate 98 H 93 H 88 Respiratory 18 18 18 Rate Blood Pressure 125/70 114/74 121/62 O2 Sat by Pulse 93 100 100 Oximetry 06/22/2006/22/06/22/20 06:30 06:45 07:00 Temperature Pulse Rate 95 H 94 H 87 Respiratory 18 19 27 H Rate Blood Pressure 123/70 115/67 104/62 O2 Sat by Pulse 100 97 100 Oximetry 06/22/2006/22/06/22/20 07:15 07:30 07:45 Temperature Pulse Rate 94 H 105 H 90 Respiratory 29 H 22 19 Rate Blood Pressure 115/74 122/67 128/65 O2 Sat by Pulse 100 94 93 Oximetry 06/22/2006/22/06/22/20 08:00 08:15 08:30 Temperature Pulse Rate 88 94 H 93 H Respiratory 19 18 18 Rate Blood Pressure 113/68 108/60 110/76 O2 Sat by Pulse 99 100 100 Oximetry 06/22/2006/22/06/22/20 08:46 09:00 09:16 Temperature Pulse Rate 96 H 129 H 89 Respiratory 19 27 H 20 Rate Blood Pressure 110/76 110/76 110/76 O2 Sat by Pulse 100 95 94 Oximetry 06/22/20 06/22/20 06/22/ 09:30 09:46 10:00 Temperature Pulse Rate 125 H Respiratory 27 H Rate Blood Pressure 118/68 118/68 118/68 O2 Sat by Pulse 92 100 100 Oximetry 06/22/06/22/20 06/22/20 10:16 10:31 10:45 Temperature Pulse Rate 107 H 61 Respiratory Rate Blood Pressure 118/68 120/73 O2 Sat by Pulse 100 Oximetry 06/22/20 06/22/20 06/22/20 11:00 11:15 11:30 Temperature Pulse Rate 91 H 109 H 95 H Respiratory 19 18 17 Rate Blood Pressure 118/65 121/59 112/66 O2 Sat by Pulse 91 97 Oximetry 06/22/20 06/22/20 06/22/20 11:45 12:00 12:15 Temperature Pulse Rate 127 H 102 H 97 H Respiratory 32 H 19 19 Rate Blood Pressure 123/60 103/69 121/60 O2 Sat by Pulse 91 95 100 Oximetry 06/22/20 12:30 Temperature Pulse Rate 96 H Respiratory 18 Rate Blood Pressure 114/63 O2 Sat by Pulse 100 Oximetry Constitutional: no acute distress, lethargic, asleep Eyes: non-icteric ENT: oropharynx moist Neck: supple, no lymphadenopathy Effort: normal Ascultation: Bilateral: clear, diminished breath sounds Cardiovascular: regular rate and rhythm, other (S1,S2, no murmurs, gallops) Gastrointestinal: normoactive bowel sounds, soft, non-tender, non-distended, other (Rendon draining clear urine) Integumentary: normal Extremities: no cyanosis, no edema, pink and warm, pulses normal Neurologic: pupils equal and round, motor strength normal and (grossly, moving all extemities), unable to assess Psychiatric: other (sedated) CBC and BMP: 06/20/20 05:39 06/21/20 05:40 ABG, PT/INR, D-dimer: ABG ABG pH 7.304 (7.320-7.450) L 06/21/20 03:49 POC ABG pCO2 60.9 mmHg (32.0-48.0) H 06/21/20 03:49 ABG pCO2 45.5 mm Hg 06/20/20 03:50 POC ABG pO2 47.7 mmHg (83-108) L 06/21/20 03:49 ABG pO2 206.0 mm Hg (80.0-90.0) H 06/20/20 03:50 POC ABG HCO3 29.6 06/21/20 03:49 ABG O2 Saturation 99.2 % (95.0-99.0) H 06/20/20 03:50 Abnormal lab findings: Abnormal Labs 06/18/20 06/18/20 06/18/20 17:08 17:08 17:08 MCV 73 L MCH 24 L Lymph % (Auto) 13.0 L Lymph # (Auto) 1.1 L Sanders # (Auto) Seg Neutrophils % 77.8 H ABG pH POC ABG pCO2 POC ABG pO2 ABG pO2 ABG O2 Saturation ABG Base Excess ABG Hemoglobin ABG Oxyhemoglobin ABG Sodium ABG Chloride ABG Glucose Potassium Carbon Dioxide 21 L Creatinine Glucose 120 H Lactic Acid 0.60 L Calcium AST ALT Total Creatine Kinase 293 H Total Protein Albumin Arterial Blood Glucose 06/18/20 06/19/20 06/19/20 18:45 02:03 02:03 MCV 74 L MCH 24 L Lymph % (Auto) Lymph # (Auto) Sanders # (Auto) 1.2 H Seg Neutrophils % ABG pH 7.295 L POC ABG pCO2 POC ABG pO2 ABG pO2 445.3 H ABG O2 Saturation 99.6 H ABG Base Excess -4.2 L ABG Hemoglobin 11.5 L ABG Oxyhemoglobin ABG Sodium ABG Chloride ABG Glucose Potassium 3.4 L Carbon Dioxide Creatinine Glucose Lactic Acid Calcium 7.9 L AST 163 H ALT 163 H Total Creatine Kinase Total Protein 5.8 L Albumin 3.1 L Arterial Blood Glucose 06/19/20 06/20/20 06/20/20 04:48 03:50 05:39 MCV 73 L MCH 24 L Lymph % (Auto) Lymph # (Auto) Sanders # (Auto) Seg Neutrophils % ABG pH POC ABG pCO2 POC ABG pO2 189.7 H ABG pO2 206.0 H ABG O2 Saturation 99.2 H ABG Base Excess ABG Hemoglobin 11.8 L 10.8 L ABG Oxyhemoglobin 98.4 H ABG Sodium 135.5 L ABG Chloride 108.0 H ABG Glucose 103 H Potassium Carbon Dioxide Creatinine Glucose Lactic Acid Calcium AST ALT Total Creatine Kinase Total Protein Albumin Arterial Blood Glucose 103 H 06/20/20 06/21/20 06/21/20 05:39 03:49 05:40 MCV MCH Lymph % (Auto) Lymph # (Auto) Sanders # (Auto) Seg Neutrophils % ABG pH 7.304 L POC ABG pCO2 60.9 H POC ABG pO2 47.7 L ABG pO2 ABG O2 Saturation ABG Base Excess ABG Hemoglobin 10.8 L ABG Oxyhemoglobin ABG Sodium 134.4 L ABG Chloride ABG Glucose Potassium 3.5 L Carbon Dioxide Creatinine 0.5 L Glucose Lactic Acid Calcium 8.0 L 7.9 L AST 45 H ALT 86 H Total Creatine Kinase Total Protein 5.4 L Albumin 2.7 L Arterial Blood Glucose Allied health notes reviewed: RT
[2020-06-22] MEDS ORDERED: HALOPERIDOL LACTATE 5 MG/1 ML INJ IV PRN (13:40)
[2020-06-22] MEDS ORDERED: SODIUM CHLORIDE 0.9% 1000 ML 1,000 ML IV ONE (19:30)
[2020-06-23] MEDS: D5W/0.9% NACL 1,000 ML IV SCH ×2 (03:17→17:41)
[2020-06-23] MEDS: CEFEPIME/NS 2 GM/100 ML 2 GM/100 ML BAG IV SCH ×2 (06:44→14:17)
--- NOTE | 2020-06-23 08:47 | Consultation ---
History of Present Illness - Reason for Consult Consult date: 06/23/20 Reason for consult: MHE Requesting physician: SILVER CALLOWAY - Chief Complaint Chief complaint: Unresponsive for few hours - History of Present Psychiatric Illness Per ED Provider: This is a 34-year-old female who presents to the emergency department via EMS from home after she was found unresponsive with suspicion of an overdose. Patient's boyfriend found her unresponsive and told EMS that she has a history of abusing GHB. EMS gave her 4 mg of Narcan without any response. They did intubate the patient but she vomited as soon as she was intubated so they pulled it out and suctioned her airway. She presents getting bag valve ventilation. Unknown if there is any other past medical history. Patient is a poor historian secondary to her current medical condition. The patient has snoring, shallow respirations and bradypnea and the patient was intubated for protection of airway. PSYCH HPI Attempt made to evaluate patient, patient was only alert to physical stumili. She is deeply asleep. WIll attempt to evaluate patient again tomorrow Diagnoses: Pending evaluation Treatment Plan MEDICATIONS: Risks, benefits and alternatives of medications discussed with the patient, questions answered and consent obtained from patient. PSYCHOTHERAPY: Supportive psychotherapy provided MEDICAL: Per primary team DELIRIUM PRECAUTIONS: Please re-orient patient frequently, keep lights on during the day, and minimize benzodiazepines and opiates as these medications could worsen patient's confusion. DROSS SKIMMER: DISPOSITION: Pending evaluation LEGAL STATUS: Pending evaluation FOLLOW-UP: Will follow Thank you for the consult. Please contact with any questions and/or concerns. Medications and Allergies Allergies Allergy/AdvReac Type Severity Reaction Status Date / Time No Known Allergies Allergy Verified 07/29/14 08:37 Home Medications Medication Instructions Recorded Confirmed Last Taken Type Dicyclomine [Bentyl] 10 mg PO TID PRN 07/29/14 06/23/20 07/29/14 04:00 History Active Meds: Active Medications Acetaminophen (Tylenol) 650 mg PO Q4H PRN PRN Reason: Pain MILD(1-3)/Fever >100.5/KRISHNA Lipase/Protease/Amylase (Collin Valdez 10,500 Unit) 1 each FEEDTUBE PRN PRN PRN Reason: For Clogged Feeding Tube Enoxaparin Sodium (Enoxaparin) 40 mg SUB-Q QDAY@1000 LATRICE Last Admin: 06/22/20 10:37 Dose: 40 mg Documented by: Famotidine (Pepcid) 20 mg IV BID [facility] Last Admin: 06/22/20 21:47 Dose: 20 mg Documented by: Haloperidol Lactate (Haldol) 5 mg IV Q6H PRN PRN Reason: Agitation Hydrophilic Ointment (Vaseline Lip Therapy) 1 applic TP Q2HR PRN PRN Reason: Dry Lips Cefepime HCl (Cefepime/Ns 2 Gm/100 Ml) 2 gm in 100 mls @ 200 mls/hr IV Q8HR [facility]; Protocol Stop: 06/23/20 14:29 Last Admin: 06/23/20 06:44 Dose: 200 mls/hr Documented by: Dextrose/Sodium Chloride (D5ns) 1,000 mls @ 75 mls/hr IV DIRECT [facility] Last Admin: 06/23/20 03:17 Dose: 75 mls/hr Documented by: Morphine Sulfate (Morphine) 2 mg IV Q4H PRN PRN Reason: Pain, Moderate (4-6) Last Admin: 06/22/20 04:51 Dose: 2 mg Documented by: Multi-Ingred Cream/Lotion/Oil/Oint (Artificial Tears Ophth Oint) 1 applic OU Q4HR PRN PRN Reason: Dry Eye(s) Ondansetron HCl (Zofran) 4 mg IV Q8H PRN PRN Reason: Nausea And Vomiting Simple Syrup (Simple Syrup) 15 ml FEEDTUBE PRN PRN PRN Reason: Hypoglycemia Simple Syrup (Simple Syrup) 30 ml FEEDTUBE PRN PRN PRN Reason: Hypoglycemia Sodium Bicarbonate (Sodium Bicarbonate) 325 mg FEEDTUBE PRN PRN PRN Reason: For Clogged Feeding Tube Sodium Chloride (Sodium Chloride Flush Syringe 10 Ml) 10 ml IV BID [facility] Last Admin: 06/22/20 21:47 Dose: 10 ml Documented by: Sodium Chloride (Sodium Chloride Flush Syringe 10 Ml) 10 ml IV PRN PRN PRN Reason: LINE FLUSH Mental Status Exam - Vital signs Last Vital Signs Temp 98.4 F 06/23/20 07:35 Pulse 79 06/23/20 07:35 Resp 18 06/23/20 07:35 BP 124/77 06/23/20 07:35 Pulse Ox 97 06/23/20 07:35 Results Result Diagrams: 06/20/20 05:39 06/21/20 05:40 Abnormal lab results 06/23/20 Range/Units 03:23 POC Glucose 108 H (70-105) mg/dL All other labs normal.
--- NOTE | 2020-06-23 09:20 | Progress Note ---
Assessment and Plan Assessment and plan: 34-year-old female brought in by EMS after being found unresponsive with suspicion of overdose. No significant past medical history. Patient has a history of abusing GHB and amphetamines. Patient was given Narcan 4 mg without any response. Patient vomited on the field airway was suctioned. Patient was given bag mask valve ventilation. There in the emergency room patient was intubated for protection of airway. Patient has bradypnea. No fever or chills. No exposure to coronavirus as far as known. No cough prior to unresponsive episode. 06/21: Still requiring ventilator support, But with improving, weaning trial today Although was noted to have Hypercarbia on ABG, still retaining urine, will straight cath today and re-evaluate. Counselling on substance abuse once extubated. 06/22: Profound encephalopathy still persist with some demonstration of acute psychosis. Psych will be consulted to assist with management. We will proceed with psych consult while awaiting patient to be awake before feeding. Speech has been consulted. Continue restraints at this time. I have also reached out to the patients mother for updates and left a message. 06/23: Patient seen and examined still lethargic, Will start on Tube feeding, stop IV fluids. Continue supportive care till more awake. 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 Plan to address problem: Continue weaning Counseling after extubation and when patient is more alert and oriented (3) Acute metabolic encephalopathy Current Visit: Yes Status: Acute Plan to address problem: Secondary to amphetamine abuse and respiratory failure IV fluids IV antibiotics empirically Possible aspiration pneumonia Discontinue IV antibiotics if afebrile and no high white count and no source of infection Humanities And Languages Professor consult requested (4) Nicotine dependence Current Visit: Yes Status: Chronic Qualifiers: Nicotine product type: cigarettes Plan to address problem: On NicoDerm patch Patient consult because patient is intubated Will consult once the patient is extubated and alert and oriented (5) LFT ELEVATED will monitor (6)DVT prophylaxis Current Visit: Yes Status: Acute Plan to address problem: On heparin and GI prophylaxis The high probability of a clinically significant, sudden or life threatening deterioration of the [PULMONARY] system(s) required my full and direct attention, intervention and personal management. The aggregate critical care time was [35] minutes. This time is in addition to time spent performing reported procedures but includes the following: [X] Data Review and interpretation [X] Patient assessment and monitoring of vital signs [X] Documentation [X] Medication orders and management History Interval history: Patient seen and examined, remains lethargic and agitated requiring Haldol as needed still requires restraints. Hospitalist Physical - Physical exam Narrative exam: VITAL SIGNS: Reviewed. GENERAL: Status post intubation self extubated, confused. HEAD: No signs of head trauma. EYES: Pupils are equal. EARS: Hearing grossly intact. MOUTH: Moist mucous membranes NECK: No adenopathy, no JVD. CHEST: Chest with clear breath sounds bilaterally. No wheezes, rales, or rhonchi. CARDIAC: Regular rate and rhythm. S1 and S2, without murmurs, gallops, or rubs. VASCULAR: No Edema. Peripheral pulses normal and equal in all extremities. ABDOMEN: Soft, non tender and non distended. No rebound or guarding, and no masses palpated. Bowel Sounds normal. MUSCULOSKELETAL: Good range of motion of all major joints. Extremities without clubbing, cyanosis or edema. NEUROLOGIC EXAM: follows some commands, no perceived weakness bilateral, moves all ext PSYCHIATRIC: Confused SKIN: detail exam as documented in skin assessment - Constitutional Vitals: Temp Pulse Resp BP Pulse Ox 98.4 F 79 18 124/77 97 06/23/20 07:35 06/23/20 07:35 06/23/20 07:35 06/23/20 07:35 06/23/20 07:35 General appearance: Present: severe distress, well-nourished HEART Score - HEART Score Troponin: Troponin T < 0.010 ng/mL (0.00-0.029) 06/18/20 17:08 Results - Labs CBC & Chem 7: 06/20/20 05:39 06/21/20 05:40 Labs: Laboratory Last Values WBC 7.9 K/mm3 (4.5-11.0) 06/20/20 05:39 RBC 4.68 M/mm3 (3.65-5.03) 06/20/20 05:39 Hgb 11.0 gm/dl (10.1-14.3) 06/20/20 05:39 Hct 34.1 % (30.3-42.9) 06/20/20 05:39 MCV 73 fl (79-97) L 06/20/20 05:39 MCH 24 pg (28-32) L 06/20/20 05:39 MCHC 32 % (30-34) 06/20/20 05:39 RDW 14.8 % (13.2-15.2) 06/20/20 05:39 Plt Count 208 K/mm3 (140-440) 06/20/20 05:39 Lymph % (Auto) 18.7 % (13.4-35.0) 06/19/20 02:03 [place] % (Auto) Tie Hacker 06/19/20 02:03 Eos % (Auto) 3.6 % (0.0-4.3) 06/19/20 02:03 Baso % (Auto) 1.0 % (0.0-1.8) 06/19/20 02:03 Lymph # (Auto) 1.4 K/mm3 (1.2-5.4) 06/19/20 02:03 [place] # (Auto) 1.2 K/mm3 (0.0-0.8) H 06/19/20 02:03 Eos # (Auto) 0.3 K/mm3 (0.0-0.4) 06/19/20 02:03 Baso # (Auto) 0.1 K/mm3 (0.0-0.1) 06/19/20 02:03 Seg Neutrophils % 60.6 % (40.0-70.0) 06/19/20 02:03 Seg Neutrophils # 4.4 K/mm3 (1.8-7.7) 06/19/20 02:03 ABG pH 7.304 (7.320-7.450) L 06/21/20 03:49 POC ABG pCO2 60.9 mmHg (32.0-48.0) H 06/21/20 03:49 ABG pCO2 45.5 mm Hg 06/20/20 03:50 POC ABG pO2 47.7 mmHg (83-108) L 06/21/20 03:49 ABG pO2 206.0 mm Hg (80.0-90.0) H 06/20/20 03:50 POC ABG HCO3 29.6 06/21/20 03:49 ABG HCO3 24.8 mmol/L (20.0-26.0) 06/20/20 03:50 ABG O2 Saturation 99.2 % (95.0-99.0) H 06/20/20 03:50 ABG O2 Content 15.2 (0.0-44) 06/20/20 03:50 POC ABG Base Excess 2.2 06/21/20 03:49 ABG Base Excess -0.9 mmol/L (-2.0-3.0) 06/20/20 03:50 ABG Hemoglobin 10.8 (12.0-17.5) L 06/21/20 03:49 ABG Oxyhemoglobin 98.4 (94-98) H 06/19/20 04:48 ABG Carboxyhemoglobin 1.5 % (0.0-5.0) 06/20/20 03:50 ABG Methemoglobin 0.4 % (0.0-1.5) 06/20/20 03:50 ABG Sodium 134.4 mmol/L (136.0-145.0) L 06/21/20 03:49 ABG Potassium 3.7 mmol/L (3.40-4.50) 06/21/20 03:49 ABG Chloride 107.0 mmol/L (98-107) 06/21/20 03:49 ABG Glucose 84 mg/dL (65-95) 06/21/20 03:49 Oxyhemoglobin 97.3 % (95.0-99.0) 06/20/20 03:50 Carboxyhemoglobin 0.7 (0.5-1.5) 06/19/20 04:48 FiO2 25 06/21/20 03:49 Sodium 143 mmol/L (137-145) 06/21/20 05:40 Potassium 3.6 mmol/L (3.6-5.0) 06/21/20 05:40 Chloride 105.9 mmol/L (98-107) 06/21/20 05:40 Carbon Dioxide 24 mmol/L (22-30) 06/21/20 05:40 Anion Gap 17 mmol/L 06/21/20 05:40 BUN 10 mg/dL (7-17) 06/21/20 05:40 Creatinine 0.5 mg/dL (0.6-1.2) L 06/21/20 05:40 Estimated GFR > 60 ml/min 06/21/20 05:40 BUN/Creatinine Ratio 20 % 06/21/20 05:40 Glucose 93 mg/dL (65-100) 06/21/20 05:40 POC Glucose 108 mg/dL (70-105) H 06/23/20 03:23 Hemoglobin A1c 5.7 % (4-6) 06/18/20 17:08 Lactic Acid 0.60 mmol/L (0.7-2.0) L 06/18/20 17:08 Calcium 7.9 mg/dL (8.4-10.2) L 06/21/20 05:40 Total Bilirubin 0.20 mg/dL (0.1-1.2) 06/21/20 05:40 AST 45 units/L (5-40) H 06/21/20 05:40 ALT 86 units/L (7-56) H 06/21/20 05:40 Alkaline Phosphatase 111 units/L (35-129) 06/21/20 05:40 Ammonia 37.0 umol/L (25-60) 06/18/20 17:08 Total Creatine Kinase 293 units/L (30-135) H 06/18/20 17:08 Troponin T < 0.010 ng/mL (0.00-0.029) 06/18/20 17:08 Total Protein 5.4 g/dL (6.3-8.2) L 06/21/20 05:40 Albumin 2.7 g/dL (3.9-5) L 06/21/20 05:40 Albumin/Globulin Ratio 1.0 % 06/21/20 05:40 TSH 1.430 mlU/mL (0.270-4.200) 06/18/20 17:08 Arterial Blood Glucose 84 mg/dL (65-95) 06/21/20 03:49 Arterial Blood Ionized Calcium 4.7 mg/dL (4.6-5.3) 06/21/20 03:49 Urine Color Yellow (Yellow) 06/18/20 Unknown Urine Turbidity Clear (Clear) 06/18/20 Unknown Urine pH 6.0 (5.0-7.0) 06/18/20 Unknown Ur Specific [place] 1.013 (1.003-1.030) 06/18/20 Unknown Urine Protein <15 mg/dl mg/dL (Negative) 06/18/20 Unknown Urine Glucose (UA) Neg mg/dL (Negative) 06/18/20 Unknown Urine Ketones Neg mg/dL (Negative) 06/18/20 Unknown Urine Blood Neg (Negative) 06/18/20 Unknown Urine Nitrite Neg (Negative) 06/18/20 Unknown Urine Bilirubin Neg (Negative) 06/18/20 Unknown Urine Urobilinogen < 2.0 mg/dL (<2.0) 06/18/20 Unknown Ur Leukocyte Esterase Neg (Negative) 06/18/20 Unknown Urine WBC (Auto) 1.0 /HPF (0.0-6.0) 06/18/20 Unknown Urine RBC (Auto) 1.0 /HPF (0.0-6.0) 06/18/20 Unknown U Epithel Cells (Auto) 1.0 /HPF (0-13.0) 06/18/20 Unknown Urine Bacteria (Auto) 1+ /HPF (Negative) 06/18/20 Unknown Hyaline Casts 1 /LPF 06/18/20 Unknown Urine Mucus Few /HPF 06/18/20 Unknown Urine HCG, Qual Negative (Negative) 06/18/20 20:47 Urine Opiates Screen Presumptive negative 06/18/20 16:58 Urine Methadone Screen Presumptive negative 06/18/20 16:58 Ur Barbiturates Screen Presumptive negative 06/18/20 16:58 Ur Phencyclidine Scrn Presumptive negative 06/18/20 16:58 Ur Amphetamines Screen Presumptive positive 06/18/20 16:58 U Benzodiazepines Scrn Presumptive negative 06/18/20 16:58 Urine Cocaine Screen Presumptive negative 06/18/20 16:58 U Marijuana (THC) Screen Presumptive negative 06/18/20 16:58 Drugs of Abuse Note Disclamer 06/18/20 16:58 Plasma/Serum Alcohol < 0.01 % (0-0.07) 06/18/20 17:08 Coronavirus (PCR) Negative (Negative) 06/21/20 10:49 Rendon/IV: Voiding Method Indwelling Catheter IV Catheter Type [Left Upper PICC Line arm] IV Catheter Type [Right INT / Saline Lock Antecubital] IV Catheter Type [Left Hand] INT / Saline Lock Active Medications - Current Medications Current Medications: Generic Name Dose Route Start Last Admin Trade Name Freq PRN Reason Stop Dose Admin Acetaminophen 650 mg 06/18/20 22:54 Tylenol PO Q4H PRN Pain MILD(1-3)/Fever >100.5/KRISHNA Lipase/Protease/Amylase 1 each 06/20/20 11:39 Pancreaze 10,500 Unit FEEDTUBE PRN PRN For Clogged Feeding Tube Enoxaparin Sodium 40 mg 06/20/20 10:00 06/22/20 10:37 Enoxaparin SUB-Q 40 mg QDAY@1000 LATRICE Administration Famotidine 20 mg 06/18/20 23:00 06/22/20 21:47 Pepcid IV 20 mg BID LATRICE Administration Haloperidol Lactate 5 mg 06/22/20 13:40 Haldol IV Q6H PRN Agitation Hydrophilic Ointment 1 applic 06/18/20 16:32 Vaseline Lip Therapy TP Q2HR PRN Dry Lips Cefepime HCl 2 gm in 100 mls @ 200 mls/hr 06/18/20 23:00 06/23/20 06:44 Cefepime/Ns 2 Gm/100 Ml IV 06/23/20 14:29 200 mls/hr Q8HR LATRICE Administration Protocol Dextrose/Sodium Chloride 1,000 mls @ 75 mls/hr 06/21/20 21:00 06/23/20 03:17 D5ns IV 75 mls/hr DIRECT LATRICE Administration Morphine Sulfate 2 mg 06/18/20 22:54 06/22/20 04:51 Morphine IV 2 mg Q4H PRN Administration Pain, Moderate (4-6) Multi-Ingred Cream/Lotion/Oil/Oint 1 applic 06/18/20 16:32 Artificial Tears Ophth Oint OU Q4HR PRN Dry Eye(s) Ondansetron HCl 4 mg 06/18/20 22:54 Zofran IV Q8H PRN Nausea And Vomiting Simple Syrup 15 ml 06/20/20 11:39 Simple Syrup FEEDTUBE PRN PRN Hypoglycemia Simple Syrup 30 ml 06/20/20 11:39 Simple Syrup FEEDTUBE PRN PRN Hypoglycemia Sodium Bicarbonate 325 mg 06/20/20 11:39 Sodium Bicarbonate FEEDTUBE PRN PRN For Clogged Feeding Tube Sodium Chloride 10 ml 06/19/20 10:00 06/22/20 21:47 Sodium Chloride Flush Syringe 10 Ml IV 10 ml BID LATRICE Administration Sodium Chloride 10 ml 06/18/20 22:54 Sodium Chloride Flush Syringe 10 Ml IV PRN PRN LINE FLUSH Nutrition/Malnutrition Assess - Dietary Evaluation Nutrition/Malnutrition Findings: Nutrition Notes Start: 06/20/20 11:11 Freq: Status: Active Protocol: Document 06/21/20 13:43 ALAN (Rec: 06/21/20 13:46 ALAN [id number]) Co-Sign 06/21/20 13:43 Nutrition Notes Initial or Follow up Brief Note Current Diagnosis Respiratory Failure Other Pertinent Diagnosis Nicotene dependence, amphetamine abuse Current Diet Vital HP at 65ml/hr Subjective/Other Information F/u TF start. Pt exbutated per respiratory therapist note. TF not started/running. Recommend diet advancement as medically able. Nutrition Intervention Follow-Up By: 06/25/20 Additional Comments F/u diet advancement
--- NOTE | 2020-06-23 10:25 | Progress Note ---
Assessment and Plan -Acute hypoxemic respiratory failure -Undifferentiated shock s/p vasopressor support -Acute toxic-metabolic encephalopathy -Amphetamine abuse -Tobacco use/Nicotine dependence -Morbid obesity BMI 37.6 -Aspiration precautions, HOB >40 - Bronchodilators with pulmonary hygiene per RT - Accuchecks with glycemic control per SSI (While critically ill target blood glucose of 140-180 mg/dL; avoid hypoglycemia) - Avoid benzodiazepines, reduce the possibility of delirium - Maintenance of sleep-wake cycle, avoid delirium -VTE prophylaxis with Heparin -Stress ulcer prophylaxis Famotidine -Avoid nephrotoxins, adjust all medications for GFR and CrCL - PT/OT, increase activity -Supportive transfusions as indicated to keep HgB >7g/dL -COVID testing negative -Substance abuse counselling -Nicotine withdrawal precautions -Supportive care, Psych services following Subjective Date of service: 06/23/20 Principal diagnosis: Ac resp failure; Drug overdose; RUL atelectasis; Obesity. Interval history: Patient is seen today for: Acute hypoxemic respiratory failure; Acute toxic, metabolic encephalopathy; Amphetamine abuse: Tobacco use disorder; Morbid obesity: PUI-COVID Seen and examined at bedside; 24hour events reviewed; nursing and respiratory care staff consulted; no adverse overnight events reported to me; resting in bed; No fevers or chills, no vomiting.On supplemental oxygen, remains drowsy Objective Vital Signs - 12hr 06/22/20 06/23/20 06/23/20 23:56 05:05 07:35 Temperature 97.8 F 98.4 F 98.4 F Pulse Rate 82 86 79 Respiratory 20 18 18 Rate Blood Pressure 133/79 116/77 124/77 O2 Sat by Pulse 96 100 97 Oximetry Constitutional: no acute distress, lethargic Eyes: non-icteric ENT: oropharynx moist Neck: supple, no lymphadenopathy Effort: normal Ascultation: Bilateral: clear, diminished breath sounds Cardiovascular: regular rate and rhythm, other (S1,S2, no murmurs, gallops) Gastrointestinal: normoactive bowel sounds, soft, non-tender, non-distended, other (Rendon draining clear urine) Integumentary: normal Extremities: no cyanosis, no edema, pink and warm, pulses normal Neurologic: non-focal exam (moves all extremities), pupils equal and round, motor strength normal and (grossly, moving all extemities), unable to assess Psychiatric: other (sedated) CBC and BMP: 06/20/20 05:39 06/24/20 05:57 ABG, PT/INR, D-dimer: ABG ABG pH 7.304 (7.320-7.450) L 06/21/20 03:49 POC ABG pCO2 60.9 mmHg (32.0-48.0) H 06/21/20 03:49 ABG pCO2 45.5 mm Hg 06/20/20 03:50 POC ABG pO2 47.7 mmHg (83-108) L 06/21/20 03:49 ABG pO2 206.0 mm Hg (80.0-90.0) H 06/20/20 03:50 POC ABG HCO3 29.6 06/21/20 03:49 ABG O2 Saturation 99.2 % (95.0-99.0) H 06/20/20 03:50 Abnormal lab findings: Abnormal Labs 06/18/20 06/18/20 06/18/20 17:08 17:08 17:08 MCV 73 L MCH 24 L Lymph % (Auto) 13.0 L Lymph # (Auto) 1.1 L Moore # (Auto) Seg Neutrophils % 77.8 H ABG pH POC ABG pCO2 POC ABG pO2 ABG pO2 ABG O2 Saturation ABG Base Excess ABG Hemoglobin ABG Oxyhemoglobin ABG Sodium ABG Chloride ABG Glucose Potassium Carbon Dioxide 21 L Creatinine Glucose 120 H POC Glucose Lactic Acid 0.60 L Calcium AST ALT Total Creatine Kinase 293 H Total Protein Albumin Arterial Blood Glucose 06/18/20 06/19/20 06/19/20 18:45 02:03 02:03 MCV 74 L MCH 24 L Lymph % (Auto) Lymph # (Auto) Moore # (Auto) 1.2 H Seg Neutrophils % ABG pH 7.295 L POC ABG pCO2 POC ABG pO2 ABG pO2 445.3 H ABG O2 Saturation 99.6 H ABG Base Excess -4.2 L ABG Hemoglobin 11.5 L ABG Oxyhemoglobin ABG Sodium ABG Chloride ABG Glucose Potassium 3.4 L Carbon Dioxide Creatinine Glucose POC Glucose Lactic Acid Calcium 7.9 L AST 163 H ALT 163 H Total Creatine Kinase Total Protein 5.8 L Albumin 3.1 L Arterial Blood Glucose 06/19/20 06/20/20 06/20/20 04:48 03:50 05:39 MCV 73 L MCH 24 L Lymph % (Auto) Lymph # (Auto) [place] # (Auto) Seg Neutrophils % ABG pH POC ABG pCO2 POC ABG pO2 189.7 H ABG pO2 206.0 H ABG O2 Saturation 99.2 H ABG Base Excess ABG Hemoglobin 11.8 L 10.8 L ABG Oxyhemoglobin 98.4 H ABG Sodium 135.5 L ABG Chloride 108.0 H ABG Glucose 103 H Potassium Carbon Dioxide Creatinine Glucose POC Glucose Lactic Acid Calcium AST ALT Total Creatine Kinase Total Protein Albumin Arterial Blood Glucose 103 H 06/20/20 06/21/20 06/21/20 05:39 03:49 05:40 MCV MCH Lymph % (Auto) Lymph # (Auto) [place] # (Auto) Seg Neutrophils % ABG pH 7.304 L POC ABG pCO2 60.9 H POC ABG pO2 47.7 L ABG pO2 ABG O2 Saturation ABG Base Excess ABG Hemoglobin 10.8 L ABG Oxyhemoglobin ABG Sodium 134.4 L ABG Chloride ABG Glucose Potassium 3.5 L Carbon Dioxide Creatinine 0.5 L Glucose POC Glucose Lactic Acid Calcium 8.0 L 7.9 L AST 45 H ALT 86 H Total Creatine Kinase Total Protein 5.4 L Albumin 2.7 L Arterial Blood Glucose 06/23/20 03:23 MCV MCH Lymph % (Auto) Lymph # (Auto) Moore # (Auto) Seg Neutrophils % ABG pH POC ABG pCO2 POC ABG pO2 ABG pO2 ABG O2 Saturation ABG Base Excess ABG Hemoglobin ABG Oxyhemoglobin ABG Sodium ABG Chloride ABG Glucose Potassium Carbon Dioxide Creatinine Glucose POC Glucose 108 H Lactic Acid Calcium AST ALT Total Creatine Kinase Total Protein Albumin Arterial Blood Glucose Allied health notes reviewed: RT
[2020-06-23] MEDS: ENOXAPARIN 40 MG/0.4 ML INJ SUB-Q SCH (10:40)
[2020-06-23] MEDS: FAMOTIDINE 20 MG/2 ML INJ IV SCH ×2 (10:40→21:46)
[2020-06-23] MEDS ORDERED: SIMPLE SYRUP 15 ML FEEDTUBE PRN ×2 (12:13)
[2020-06-23] MEDS ORDERED: LIPASE 10,500/PROTEASE 25,000/AMYLASE 43,750 (UNITS) DR CAP FEEDTUBE PRN (12:13)
[2020-06-23] MEDS ORDERED: SODIUM BICARBONATE 325 MG TAB FEEDTUBE PRN (12:13)
[2020-06-23] MEDS ORDERED: SODIUM CHLORIDE 0.9% 250ML 250 ML IV ONE (23:46)
[2020-06-24] MEDS: D5W/0.9% NACL 1,000 ML IV SCH (07:05)
[2020-06-24 07:28] LABS: Blood Urea Nitrogen 5 mg/dL (7-17); Calcium 8.4 mg/dL (8.4-10.2); Hemolysis Index 2
[2020-06-24 07:30] LABS: BUN/Creatinine Ratio 10
--- NOTE | 2020-06-24 09:29 | Progress Note ---
Subjective - Reason for Consult Consult date: 06/24/20 Reason for consult: MHE Requesting physician: LUZ ELENA HENDERSON - Chief Complaint Chief complaint: Floor Nurse: Patient had runs of vtach, 3, 6, and 10 beats. Patient denied distress upon awakening. Patient's blood pressure is 93/49, pulse 87. Patient is on D5ns at 75ml/hr. Dr. Mejia notified and new order received for 250ml normal saline bolus and magnesium and bmp labs in the morning. Will continue care. Psych Progress HPI Patient is a 35-year-old single with 2 children in the guardians of her parents, currently unemployed receiving unemployment benefits and lives in an apartment with past psychiatric history of PTSD and depression and unspecified medical history who was admitted to the facility due to suspected drug overdose. Patient reports she has been doing drugs for few years, she has a history of meth and GHB use, says at the time of presentation to the hospital she had taken a bunch of GHB medications, she reports she started doing drugs after she had her second baby due to post depression, and apparently currently has the custody of both her children. Patient denies any suicidal intent the time that she overdosed, says she has to leave for her kids and and her parents because she is not ready to . Review of Symptoms: Constitutional: Negative for weight loss ENT: Negative for stridor Respiratory: Negative for cough or hemoptysis All other systems reviewed and are negative MENTAL STATUS EXAMINATION General Appearance and Behavior: Age appropriate, good hygiene, wearing appropriate clothes,, good eye contact Cooperation: Participating/engaged, but Guarded Psychomotor Behavior: Psychomotor normal Mood: depressed Affect and affective range: irritable, labile Thought Process: illogical Thought Content: helplessness Speech: Normal rate, volume and rythm Intellectual Functioning: Average Suicidal Ideation: Denies SI Homicidal Ideation: Denies HI Impulse Control: Impaired Insight and Judgment: Limited insight and judgment Memory: Normal Attention: Normal Orientation: Alert, Treatment Plan Assessment and Plan - Patient Problems (1) Substance use disorder Current Visit: Yes Status: Acute (2) Gamma-hydroxybutyrate (GHB) use disorder, moderate Current Visit: Yes Status: Acute (3) Methadone use disorder, moderate Current Visit: Yes Status: Acute (4) Psychoactive substance-induced mood disorder Current Visit: Yes Status: Acute I called and spoke with patient's mom, discussed current treatment plan as outpatient drug rehab program, patient mom agrees to hop picker patient for safety discharge and agrees with current discharge plans with outpatient drug rehab. MEDICATIONS: Risks, benefits and alternatives of medications discussed with the patient, questions answered and consent obtained from patient. PSYCHOTHERAPY: Supportive psychotherapy provided MEDICAL: Per primary team DELIRIUM PRECAUTIONS: Please re-orient patient frequently, keep lights on during the day, and minimize benzodiazepines and opiates as these medications could worsen patient's confusion. MANAGER TRANSMISSION: DISPOSITION: Do Not Recommend acute inpatient psychiatric hospitalization at this time. Safety discharge with drug rehab resources LEGAL STATUS: Voluntary FOLLOW-UP: Will sign off Thank you for the consult. Please contact with any questions and/or concerns. Mental Status Exam - Vital signs Last Vital Signs Temp 98.9 F 06/24/20 07:32 Pulse 77 06/24/20 07:32 Resp 18 06/24/20 07:32 BP 109/62 06/24/20 07:32 Pulse Ox 98 06/24/20 07:32 Assessment and Plan - Patient Problems (1) Substance use disorder Current Visit: Yes Status: Acute (2) Gamma-hydroxybutyrate (GHB) use disorder, moderate Current Visit: Yes Status: Acute (3) Methadone use disorder, moderate Current Visit: Yes Status: Acute (4) Psychoactive substance-induced mood disorder Current Visit: Yes Status: Acute
[2020-06-24] MEDS: FAMOTIDINE 20 MG/2 ML INJ IV SCH ×3 (09:54→23:22)
[2020-06-24] MEDS: ENOXAPARIN 40 MG/0.4 ML INJ SUB-Q SCH (09:54)
--- NOTE | 2020-06-24 10:22 | Consultation ---
History of Present Illness Consult date: 06/24/20 Consult reason: arrhythmia History of present illness: 35-year-old white female who was admitted with a drug overdose secondary to amphetamines was noticed today to have a short run of nonsustained polymorphic V. tach. Patient at this time remained stable and denies any cardiac symptoms she appears to be lethargic and sleepy. Past History Past Medical History: No medical history Past Surgical History: No surgical history Social history: no significant social history Medications and Allergies Allergies Allergy/AdvReac Type Severity Reaction Status Date / Time No Known Allergies Allergy Verified 07/29/14 08:37 Home Medications Medication Instructions Recorded Confirmed Last Taken Type Dicyclomine [Bentyl] 10 mg PO TID PRN 07/29/14 06/23/20 07/29/14 04:00 History Active Meds: Active Medications Acetaminophen (Tylenol) 650 mg PO Q4H PRN PRN Reason: Pain MILD(1-3)/Fever >100.5/KRISHNA Lipase/Protease/Amylase (Pancreaze Dr 10,500 Unit) 1 each FEEDTUBE PRN PRN PRN Reason: For Clogged Feeding Tube Enoxaparin Sodium (Enoxaparin) 40 mg SUB-Q QDAY@1000 [facility] Last Admin: 06/24/20 09:54 Dose: 40 mg Documented by: Famotidine (Pepcid) 20 mg IV BID [facility] Last Admin: 06/24/20 09:54 Dose: 20 mg Documented by: Haloperidol Lactate (Haldol) 5 mg IV Q6H PRN PRN Reason: Agitation Hydrophilic Ointment (Vaseline Lip Therapy) 1 applic TP Q2HR PRN PRN Reason: Dry Lips Dextrose/Sodium Chloride (D5ns) 1,000 mls @ 75 mls/hr IV DIRECT [facility] Last Admin: 06/24/20 07:05 Dose: 75 mls/hr Documented by: Magnesium Sulfate 1 gm/ Sodium (Chloride) 52 mls @ 52 mls/hr IV ONCE ONE Stop: 06/24/20 11:29 Potassium Chloride (Kcl 10meq/100ml) 10 meq in 100 mls @ 100 mls/hr IV Q1H [facility] Stop: 06/24/20 14:29 Morphine Sulfate (Morphine) 2 mg IV Q4H PRN PRN Reason: Pain, Moderate (4-6) Last Admin: 06/22/20 04:51 Dose: 2 mg Documented by: Multi-Ingred Cream/Lotion/Oil/Oint (Artificial Tears Ophth Oint) 1 applic OU Q4HR PRN PRN Reason: Dry Eye(s) Ondansetron HCl (Zofran) 4 mg IV Q8H PRN PRN Reason: Nausea And Vomiting Simple Syrup (Simple Syrup) 15 ml FEEDTUBE PRN PRN PRN Reason: Hypoglycemia Simple Syrup (Simple Syrup) 30 ml FEEDTUBE PRN PRN PRN Reason: Hypoglycemia Sodium Bicarbonate (Sodium Bicarbonate) 325 mg FEEDTUBE PRN PRN PRN Reason: For Clogged Feeding Tube Sodium Chloride (Sodium Chloride Flush Syringe 10 Ml) 10 ml IV BID [facility] Last Admin: 06/24/20 09:54 Dose: 10 ml Documented by: Sodium Chloride (Sodium Chloride Flush Syringe 10 Ml) 10 ml IV PRN PRN PRN Reason: LINE FLUSH Review of Systems ROS unobtainable: due to mental status Physical Examination Vital Signs Pulse Resp BP Pulse Ox 76 10 L 119/69 100 06/18/20 16:30 06/18/20 16:30 06/18/20 16:30 06/18/20 16:30 General appearance: no acute distress, well-nourished HEENT: Positive: PERRL, Mucus Membranes Moist Neck: Positive: neck supple, trachea midline Cardiac: Positive: Reg Rate and Rhythm, S1/S2. Negative: Audible Murmur Lungs: Positive: clear to auscultation, Normal Breath Sounds Neuro: Positive: Grossly Intact Abdomen: Positive: Soft, Active Bowel Sounds. Negative: Tender, Distended Female genitourinary: deferred Skin: Positive: Clear Incision: Cardiac Cath Site Musculoskeletal: No Pain, Normal Range of Motion Extremities: Present: normal. Absent: edema Results 06/20/20 05:39 06/24/20 05:57 Comprehensive Metabolic Panel 06/24/20 Range/Units 05:57 Sodium 143 (137-145) mmol/L Potassium 3.6 (3.6-5.0) mmol/L Chloride 106.7 (98-107) mmol/L Carbon Dioxide 27 (22-30) mmol/L BUN 5 L (7-17) mg/dL Creatinine 0.5 L (0.6-1.2) mg/dL Glucose 105 H (65-100) mg/dL Calcium 8.4 (8.4-10.2) mg/dL EKG interpretations - Telemetry EKG Rhythm: Sinus Rhythm Assessment and Plan 1. 9 beat run of nonsustained polymorphic V. tach 2. Amphetamine/GHB abuse 3. Metabolic Encephalopathy Patient is stable with no prior cardiac history. Review of labs reveal normal serum potassium and magnesium levels. Hospitalist has however given additional potassium and magnesium which I agree with. Review of EKG does not reveal any prolonged QT interval. Plan. Currently stable. Monitor on telemetry. Obtain an echocardiogram. Regular treadmill stress test prior to discharge.
[2020-06-24] MEDS ORDERED: MAGNESIUM SULFATE 1 GM in SODIUM CHLORIDE 0.9% 50 ML IV ONE (10:30)
[2020-06-24] MEDS: POTASSIUM CHLORIDE 10 MEQ 10 MEQ/100 ML BAG IV SCH ×3 (12:04→15:38)
--- NOTE | 2020-06-24 13:03 | Progress Note ---
Assessment and Plan Assessment and plan: 34-year-old female brought in by EMS after being found unresponsive with suspicion of overdose. No significant past medical history. Patient has a history of abusing GHB and amphetamines. Patient was given Narcan 4 mg without any response. Patient vomited on the field airway was suctioned. Patient was given bag mask valve ventilation. There in the emergency room patient was intubated for protection of airway. Patient has bradypnea. No fever or chills. No exposure to coronavirus as far as known. No cough prior to unresponsive episode. 06/21: Still requiring ventilator support, But with improving, weaning trial today Although was noted to have Hypercarbia on ABG, still retaining urine, will straight cath today and re-evaluate. Counselling on substance abuse once extubated. 06/22: Profound encephalopathy still persist with some demonstration of acute psychosis. Psych will be consulted to assist with management. We will proceed with psych consult while awaiting patient to be awake before feeding. Speech has been consulted. Continue restraints at this time. I have also reached out to the patients mother for updates and left a message. 06/23: Patient seen and examined still lethargic, Will start on Tube feeding, stop IV fluids. Continue supportive care till more awake. 11/: Patient much improved today. However did have a 9 beat V. tach. Cardiology consulted. Plan for stress test in a.m. considering drug abuse. Echocardiogram ordered. Will replace potassium as patient noted with mild hypokalemia. We will also give magnesium. - Patient Problems (1) Acute respiratory failure Current Visit: Yes Status: Acute Qualifiers: Respiratory failure complication: unspecified whether with hypoxia or hypercapnia Qualified Code(s): J96.00 - Acute respiratory failure, unspecified whether with hypoxia or hypercapnia Plan to address problem: Secondary to amphetamine/GHB overdose Continue wean vent support and wean as possible Inspector Hairspring consult requested AND DISCUSSED (2) Amphetamine abuse Current Visit: Yes Status: Chronic Plan to address problem: Continue weaning Counseling after extubation and when patient is more alert and oriented (3) Acute metabolic encephalopathy Current Visit: Yes Status: Acute Plan to address problem: Secondary to amphetamine abuse and respiratory failure IV fluids IV antibiotics empirically Possible aspiration pneumonia Discontinue IV antibiotics if afebrile and no high white count and no source of infection Inspector Hairspring consult requested (4) Nicotine dependence Current Visit: Yes Status: Chronic Qualifiers: Nicotine product type: cigarettes Plan to address problem: On NicoDerm patch Patient consult because patient is intubated Will consult once the patient is extubated and alert and oriented (5) LFT ELEVATED will monitor (6)DVT prophylaxis Current Visit: Yes Status: Acute Plan to address problem: On heparin and GI prophylaxis The high probability of a clinically significant, sudden or life threatening deterioration of the [PULMONARY] system(s) required my full and direct attentio n, intervention and personal management. The aggregate critical care time was [35] minutes. This time is in addition to time spent performing reported procedures but includes the following: [X] Data Review and interpretation [X] Patient assessment and monitoring of vital signs [X] Documentation [X] Medication orders and management History Interval history: Patient seen and examined, Much more awake and oriented this am. Patient Hospitalist Physical - Physical exam Narrative exam: VITAL SIGNS: Reviewed. GENERAL: Sitting up tolerated her diet awake alert oriented x3 no acute distress HEAD: No signs of head trauma. EYES: Pupils are equal. EARS: Hearing grossly intact. MOUTH: Moist mucous membranes NECK: No adenopathy, no JVD. CHEST: Chest with clear breath sounds bilaterally. No wheezes, rales, or rhonchi. CARDIAC: Regular rate and rhythm. S1 and S2, without murmurs, gallops, or rubs. VASCULAR: No Edema. Peripheral pulses normal and equal in all extremities. ABDOMEN: Soft, non tender and non distended. No rebound or guarding, and no masses palpated. Bowel Sounds normal. MUSCULOSKELETAL: Good range of motion of all major joints. Extremities without clubbing, cyanosis or edema. NEUROLOGIC EXAM: follows some commands, no perceived weakness bilateral, moves all ext PSYCHIATRIC: Awake alert oriented x3 SKIN: detail exam as documented in skin assessment - Constitutional Vitals: Temp Pulse Resp BP Pulse Ox 98.9 F 83 20 92/53 99 06/24/20 10:48 06/24/20 10:48 06/24/20 10:48 06/24/20 10:48 06/24/20 10:48 General appearance: Present: no acute distress, well-nourished HEART Score - HEART Score Troponin: Troponin T < 0.010 ng/mL (0.00-0.029) 06/18/20 17:08 Results - Labs CBC & Chem 7: 06/20/20 05:39 06/24/20 05:57 Labs: Laboratory Last Values WBC 7.9 K/mm3 (4.5-11.0) 06/20/20 05:39 RBC 4.68 M/mm3 (3.65-5.03) 06/20/20 05:39 Hgb 11.0 gm/dl (10.1-14.3) 06/20/20 05:39 Hct 34.1 % (30.3-42.9) 06/20/20 05:39 MCV 73 fl (79-97) L 06/20/20 05:39 MCH 24 pg (28-32) L 06/20/20 05:39 MCHC 32 % (30-34) 06/20/20 05:39 RDW 14.8 % (13.2-15.2) 06/20/20 05:39 Plt Count 208 K/mm3 (140-440) 06/20/20 05:39 Lymph % (Auto) 18.7 % (13.4-35.0) 06/19/20 02:03 [place] % (Auto) Glass Finisher 06/19/20 02:03 Eos % (Auto) 3.6 % (0.0-4.3) 06/19/20 02:03 Baso % (Auto) 1.0 % (0.0-1.8) 06/19/20 02:03 Lymph # (Auto) 1.4 K/mm3 (1.2-5.4) 06/19/20 02:03 [place] # (Auto) 1.2 K/mm3 (0.0-0.8) H 06/19/20 02:03 Eos # (Auto) 0.3 K/mm3 (0.0-0.4) 06/19/20 02:03 Baso # (Auto) 0.1 K/mm3 (0.0-0.1) 06/19/20 02:03 Seg Neutrophils % 60.6 % (40.0-70.0) 06/19/20 02:03 Seg Neutrophils # 4.4 K/mm3 (1.8-7.7) 06/19/20 02:03 ABG pH 7.304 (7.320-7.450) L 06/21/20 03:49 POC ABG pCO2 60.9 mmHg (32.0-48.0) H 06/21/20 03:49 ABG pCO2 45.5 mm Hg 06/20/20 03:50 POC ABG pO2 47.7 mmHg (83-108) L 06/21/20 03:49 ABG pO2 206.0 mm Hg (80.0-90.0) H 06/20/20 03:50 POC ABG HCO3 29.6 06/21/20 03:49 ABG HCO3 24.8 mmol/L (20.0-26.0) 06/20/20 03:50 ABG O2 Saturation 99.2 % (95.0-99.0) H 06/20/20 03:50 ABG O2 Content 15.2 (0.0-44) 06/20/20 03:50 POC ABG Base Excess 2.2 06/21/20 03:49 ABG Base Excess -0.9 mmol/L (-2.0-3.0) 06/20/20 03:50 ABG Hemoglobin 10.8 (12.0-17.5) L 06/21/20 03:49 ABG Oxyhemoglobin 98.4 (94-98) H 06/19/20 04:48 ABG Carboxyhemoglobin 1.5 % (0.0-5.0) 06/20/20 03:50 ABG Methemoglobin 0.4 % (0.0-1.5) 06/20/20 03:50 ABG Sodium 134.4 mmol/L (136.0-145.0) L 06/21/20 03:49 ABG Potassium 3.7 mmol/L (3.40-4.50) 06/21/20 03:49 ABG Chloride 107.0 mmol/L (98-107) 06/21/20 03:49 ABG Glucose 84 mg/dL (65-95) 06/21/20 03:49 Oxyhemoglobin 97.3 % (95.0-99.0) 06/20/20 03:50 Carboxyhemoglobin 0.7 (0.5-1.5) 06/19/20 04:48 FiO2 25 06/21/20 03:49 Sodium 143 mmol/L (137-145) 06/24/20 05:57 Potassium 3.6 mmol/L (3.6-5.0) 06/24/20 05:57 Chloride 106.7 mmol/L (98-107) 06/24/20 05:57 Carbon Dioxide 27 mmol/L (22-30) 06/24/20 05:57 Anion Gap 13 mmol/L 06/24/20 05:57 BUN 5 mg/dL (7-17) L 06/24/20 05:57 Creatinine 0.5 mg/dL (0.6-1.2) L 06/24/20 05:57 Estimated GFR > 60 ml/min 06/24/20 05:57 BUN/Creatinine Ratio 10 % 06/24/20 05:57 Glucose 105 mg/dL (65-100) H 06/24/20 05:57 POC Glucose 199 mg/dL (70-105) H 06/24/20 11:02 Hemoglobin A1c 5.7 % (4-6) 06/18/20 17:08 Lactic Acid 0.60 mmol/L (0.7-2.0) L 06/18/20 17:08 Calcium 8.4 mg/dL (8.4-10.2) 06/24/20 05:57 Magnesium 1.80 mg/dL (1.7-2.3) 06/24/20 05:57 Total Bilirubin 0.20 mg/dL (0.1-1.2) 06/21/20 05:40 AST 45 units/L (5-40) H 06/21/20 05:40 ALT 86 units/L (7-56) H 06/21/20 05:40 Alkaline Phosphatase 111 units/L (35-129) 06/21/20 05:40 Ammonia 37.0 umol/L (25-60) 06/18/20 17:08 Total Creatine Kinase 293 units/L (30-135) H 06/18/20 17:08 Troponin T < 0.010 ng/mL (0.00-0.029) 06/18/20 17:08 Total Protein 5.4 g/dL (6.3-8.2) L 06/21/20 05:40 Albumin 2.7 g/dL (3.9-5) L 06/21/20 05:40 Albumin/Globulin Ratio 1.0 % 06/21/20 05:40 TSH 1.430 mlU/mL (0.270-4.200) 06/18/20 17:08 Arterial Blood Glucose 84 mg/dL (65-95) 06/21/20 03:49 Arterial Blood Ionized Calcium 4.7 mg/dL (4.6-5.3) 06/21/20 03:49 Urine Color Yellow (Yellow) 06/18/20 Unknown Urine Turbidity Clear (Clear) 06/18/20 Unknown Urine pH 6.0 (5.0-7.0) 06/18/20 Unknown Ur Specific [place] 1.013 (1.003-1.030) 06/18/20 Unknown Urine Protein <15 mg/dl mg/dL (Negative) 06/18/20 Unknown Urine Glucose (UA) Neg mg/dL (Negative) 06/18/20 Unknown Urine Ketones Neg mg/dL (Negative) 06/18/20 Unknown Urine Blood Neg (Negative) 06/18/20 Unknown Urine Nitrite Neg (Negative) 06/18/20 Unknown Urine Bilirubin Neg (Negative) 06/18/20 Unknown Urine Urobilinogen < 2.0 mg/dL (<2.0) 06/18/20 Unknown Ur Leukocyte Esterase Neg (Negative) 06/18/20 Unknown Urine WBC (Auto) 1.0 /HPF (0.0-6.0) 06/18/20 Unknown Urine RBC (Auto) 1.0 /HPF (0.0-6.0) 06/18/20 Unknown U Epithel Cells (Auto) 1.0 /HPF (0-13.0) 06/18/20 Unknown Urine Bacteria (Auto) 1+ /HPF (Negative) 06/18/20 Unknown Hyaline Casts 1 /LPF 06/18/20 Unknown Urine Mucus Few /HPF 06/18/20 Unknown Urine HCG, Qual Negative (Negative) 06/18/20 20:47 Urine Opiates Screen Presumptive negative 06/18/20 16:58 Urine Methadone Screen Presumptive negative 06/18/20 16:58 Ur Barbiturates Screen Presumptive negative 06/18/20 16:58 Ur Phencyclidine Scrn Presumptive negative 06/18/20 16:58 Ur Amphetamines Screen Presumptive positive 06/18/20 16:58 U Benzodiazepines Scrn Presumptive negative 06/18/20 16:58 Urine Cocaine Screen Presumptive negative 06/18/20 16:58 U Marijuana (THC) Screen Presumptive negative 06/18/20 16:58 Drugs of Abuse Note Disclamer 06/18/20 16:58 Plasma/Serum Alcohol < 0.01 % (0-0.07) 06/18/20 17:08 Coronavirus (PCR) Negative (Negative) 06/21/20 10:49 Microbiology: Microbiology 06/18/20 18:50 Tracheal Aspirate Sputum Culture - Final Rendon/IV: Voiding Method Indwelling Catheter IV Catheter Type [Left Upper PICC Line arm] IV Catheter Type [Right INT / Saline Lock Antecubital] IV Catheter Type [Left Hand] INT / Saline Lock Active Medications - Current Medications Current Medications: Generic Name Dose Route Start Last Admin Trade Name Freq PRN Reason Stop Dose Admin Acetaminophen 650 mg 06/18/20 22:54 Tylenol PO Q4H PRN Pain MILD(1-3)/Fever >100.5/KRISHNA Lipase/Protease/Amylase 1 each 06/20/20 11:[address] 10,500 Unit FEEDTUBE PRN PRN For Clogged Feeding Tube Enoxaparin Sodium 40 mg 06/20/20 10:00 06/24/20 09:54 Enoxaparin SUB-Q 40 mg QDAY@1000 [facility] Administration Famotidine 20 mg 06/18/20 23:00 06/24/20 09:54 Pepcid IV 20 mg BID [facility] Administration Haloperidol Lactate 5 mg 06/22/20 13:40 Haldol IV Q6H PRN Agitation Hydrophilic Ointment 1 applic 06/18/20 16:32 Vaseline Lip Therapy TP Q2HR PRN Dry Lips Dextrose/Sodium Chloride 1,000 mls @ 75 mls/hr 06/21/20 21:00 06/24/20 07:05 D5ns IV 75 mls/hr DIRECT [facility]RICE Administration Potassium Chloride 10 meq in 100 mls @ 100 mls/hr 06/24/20 10:30 06/24/20 12:05 Kcl 10meq/100ml IV 06/24/20 14:29 100 mls/hr Q1H [facility] Administration Morphine Sulfate 2 mg 06/18/20 22:54 06/22/20 04:51 Morphine IV 2 mg Q4H PRN Administration Pain, Moderate (4-6) Multi-Ingred Cream/Lotion/Oil/Oint 1 applic 06/18/20 16:32 Artificial Tears Ophth Oint OU Q4HR PRN Dry Eye(s) Ondansetron HCl 4 mg 06/18/20 22:54 Zofran IV Q8H PRN Nausea And Vomiting Simple Syrup 15 ml 06/20/20 11:39 Simple Syrup FEEDTUBE PRN PRN Hypoglycemia Simple Syrup 30 ml 06/20/20 11:39 Simple Syrup FEEDTUBE PRN PRN Hypoglycemia Sodium Bicarbonate 325 mg 06/20/20 11:39 Sodium Bicarbonate FEEDTUBE PRN PRN For Clogged Feeding Tube Sodium Chloride 10 ml 06/19/20 10:00 06/24/20 09:54 Sodium Chloride Flush Syringe 10 Ml IV 10 ml BID [facility] Administration Sodium Chloride 10 ml 06/18/20 22:54 Sodium Chloride Flush Syringe 10 Ml IV PRN PRN LINE FLUSH Nutrition/Malnutrition Assess - Dietary Evaluation Nutrition/Malnutrition Findings: Nutrition Notes Start: 06/20/20 11:11 Freq: Status: Active Protocol: Document 06/23/20 12:05 LM (Rec: 06/23/20 12:13 LM [id number]) Nutrition Notes Need for Assessment generated from: MD Order Initial or Follow up Reassessment Current Diagnosis Respiratory Failure Other Pertinent Diagnosis Nicotene dependence, amphetamine abuse Current Diet NPO Labs/Tests POC glu 129 A1C 5.7 Pertinent Medications Pepcid D5NS at 75ml/hr Height 5 ft 6 in Weight 104.5 kg [place] Body Weight (kg) 59.09 BMI 37.1 Weight Status Obese Subjective/Other Information MD consult for TF. Pt remains lethargic. Pt's A1c indiactes prediabetes. Burn Absent Trauma Absent Current % PO Negligible Minimum of two criteria No physical signs of malnutrition #1 Nutrition Diagnosis Inadequate oral intake Etiology pt is lethargic As Evidenced by Signs and Symptoms pt requiring TF Is patient on ventilator? No Is Patient Ambulatory and/or Out of Bed No REE-([place]-confined to bed) 2116.116 Kcal/Kg value to use for calculation 15 Approximate Energy Requirements Using 1568 kcal/Kg Calculation Used for Recommendations Kcal/kg Additional Notes Protein: 66-82g (0.8-1g/kg using AdjBW 82kg Fluid: 1ml/kcal Nutrition Intervention Change Diet Order: TF Nutrition Support: Jevity 1.2 at 55ml/hr Flush 85ml q4h Kcal 1,584 Protein (gm) 73 Fluid (mL) 1,065 Goal #1 TF start/tolerance Anticipated Discharge Needs: Unable to determine at this time Follow-Up By: 06/25/20 Additional Comments F/U for TF start/tolerance, BG
--- NOTE | 2020-06-24 14:39 | Progress Note ---
Assessment and Plan -Acute hypoxemic respiratory failure -Undifferentiated shock s/p vasopressor support -Acute toxic-metabolic encephalopathy -Amphetamine abuse -Tobacco use/Nicotine dependence -Morbid obesity BMI 37.6 -Aspiration precautions, HOB >40 - Bronchodilators with pulmonary hygiene per RT - Accuchecks with glycemic control per SSI (While critically ill target blood glucose of 140-180 mg/dL; avoid hypoglycemia) - Avoid benzodiazepines, reduce the possibility of delirium - Maintenance of sleep-wake cycle, avoid delirium -VTE prophylaxis with Heparin -Stress ulcer prophylaxis Famotidine -Avoid nephrotoxins, adjust all medications for GFR and CrCL - PT/OT, increase activity -Supportive transfusions as indicated to keep HgB >7g/dL -COVID testing negative -Substance abuse counselling -Nicotine withdrawal precautions -Supportive care, Psych services following Subjective Date of service: 06/24/20 Principal diagnosis: Ac resp failure; Drug overdose; RUL atelectasis; Obesity. Interval history: Patient is seen today for: Acute hypoxemic respiratory failure; Acute toxic, metabolic encephalopathy; Amphetamine abuse: Tobacco use disorder; Morbid obesity: PUI-COVID Seen and examined at bedside; 24hour events reviewed; nursing and respiratory care staff consulted; no adverse overnight events reported to me; resting in bed; No fevers or chills, no vomiting.On supplemental oxygen, remains drowsy Objective Vital Signs - 12hr 06/24/20 06/24/20 06/24/20 03:48 04:30 07:32 Temperature 98.0 F 98.9 F Pulse Rate 88 96 H 77 Respiratory 18 18 Rate Blood Pressure 115/67 109/62 O2 Sat by Pulse 97 98 Oximetry 06/24/20 10:48 Temperature 98.9 F Pulse Rate 83 Respiratory 20 Rate Blood Pressure 92/53 O2 Sat by Pulse 99 Oximetry Constitutional: no acute distress, lethargic Eyes: non-icteric ENT: oropharynx moist Neck: supple, no lymphadenopathy Effort: normal Ascultation: Bilateral: clear, diminished breath sounds Cardiovascular: regular rate and rhythm, other (S1,S2, no murmurs, gallops) Gastrointestinal: normoactive bowel sounds, soft, non-tender, non-distended, other (Rendon draining clear urine) Integumentary: normal Extremities: no cyanosis, no edema, pink and warm, pulses normal Neurologic: non-focal exam (moves all extremities), pupils equal and round, motor strength normal and (grossly, moving all extemities), unable to assess Psychiatric: other (sedated) CBC and BMP: 06/20/20 05:39 06/24/20 05:57 ABG, PT/INR, D-dimer: ABG ABG pH 7.304 (7.320-7.450) L 06/21/20 03:49 POC ABG pCO2 60.9 mmHg (32.0-48.0) H 06/21/20 03:49 ABG pCO2 45.5 mm Hg 06/20/20 03:50 POC ABG pO2 47.7 mmHg (83-108) L 06/21/20 03:49 ABG pO2 206.0 mm Hg (80.0-90.0) H 06/20/20 03:50 POC ABG HCO3 29.6 06/21/20 03:49 ABG O2 Saturation 99.2 % (95.0-99.0) H 06/20/20 03:50 Abnormal lab findings: Abnormal Labs 06/18/20 06/18/20 06/18/20 17:08 17:08 17:08 MCV 73 L MCH 24 L Lymph % (Auto) 13.0 L Lymph # (Auto) 1.1 L [place] # (Auto) Seg Neutrophils % 77.8 H ABG pH POC ABG pCO2 POC ABG pO2 ABG pO2 ABG O2 Saturation ABG Base Excess ABG Hemoglobin ABG Oxyhemoglobin ABG Sodium ABG Chloride ABG Glucose Potassium Carbon Dioxide 21 L BUN Creatinine Glucose 120 H POC Glucose Lactic Acid 0.60 L Calcium AST ALT Total Creatine Kinase 293 H Total Protein Albumin Arterial Blood Glucose 06/18/20 06/19/20 06/19/20 18:45 02:03 02:03 MCV 74 L MCH 24 L Lymph % (Auto) Lymph # (Auto) [place] # (Auto) 1.2 H Seg Neutrophils % ABG pH 7.295 L POC ABG pCO2 POC ABG pO2 ABG pO2 445.3 H ABG O2 Saturation 99.6 H ABG Base Excess -4.2 L ABG Hemoglobin 11.5 L ABG Oxyhemoglobin ABG Sodium ABG Chloride ABG Glucose Potassium 3.4 L Carbon Dioxide BUN Creatinine Glucose POC Glucose Lactic Acid Calcium 7.9 L AST 163 H ALT 163 H Total Creatine Kinase Total Protein 5.8 L Albumin 3.1 L Arterial Blood Glucose 06/19/20 06/20/20 06/20/20 04:48 03:50 05:39 MCV 73 L MCH 24 L Lymph % (Auto) Lymph # (Auto) [place] # (Auto) Seg Neutrophils % ABG pH POC ABG pCO2 POC ABG pO2 189.7 H ABG pO2 206.0 H ABG O2 Saturation 99.2 H ABG Base Excess ABG Hemoglobin 11.8 L 10.8 L ABG Oxyhemoglobin 98.4 H ABG Sodium 135.5 L ABG Chloride 108.0 H ABG Glucose 103 H Potassium Carbon Dioxide BUN Creatinine Glucose POC Glucose Lactic Acid Calcium AST ALT Total Creatine Kinase Total Protein Albumin Arterial Blood Glucose 103 H 06/20/20 06/21/20 06/21/20 05:39 03:49 05:40 MCV MCH Lymph % (Auto) Lymph # (Auto) [place] # (Auto) Seg Neutrophils % ABG pH 7.304 L POC ABG pCO2 60.9 H POC ABG pO2 47.7 L ABG pO2 ABG O2 Saturation ABG Base Excess ABG Hemoglobin 10.8 L ABG Oxyhemoglobin ABG Sodium 134.4 L ABG Chloride ABG Glucose Potassium 3.5 L Carbon Dioxide BUN Creatinine 0.5 L Glucose POC Glucose Lactic Acid Calcium 8.0 L 7.9 L AST 45 H ALT 86 H Total Creatine Kinase Total Protein 5.4 L Albumin 2.7 L Arterial Blood Glucose 06/23/20 06/23/20 06/24/20 03:23 11:32 05:57 MCV MCH Lymph % (Auto) Lymph # (Auto) [place] # (Auto) Seg Neutrophils % ABG pH POC ABG pCO2 POC ABG pO2 ABG pO2 ABG O2 Saturation ABG Base Excess ABG Hemoglobin ABG Oxyhemoglobin ABG Sodium ABG Chloride ABG Glucose Potassium Carbon Dioxide BUN 5 L Creatinine 0.5 L Glucose 105 H POC Glucose 108 H 129 H Lactic Acid Calcium AST ALT Total Creatine Kinase Total Protein Albumin Arterial Blood Glucose 06/24/20 11:02 MCV MCH Lymph % (Auto) Lymph # (Auto) [place] # (Auto) Seg Neutrophils % ABG pH POC ABG pCO2 POC ABG pO2 ABG pO2 ABG O2 Saturation ABG Base Excess ABG Hemoglobin ABG Oxyhemoglobin ABG Sodium ABG Chloride ABG Glucose Potassium Carbon Dioxide BUN Creatinine Glucose POC Glucose 199 H Lactic Acid Calcium AST ALT Total Creatine Kinase Total Protein Albumin Arterial Blood Glucose Allied health notes reviewed: RT
[2020-06-25 06:56] LABS: Blood Urea Nitrogen 8 mg/dL (7-17); Calcium 8.8 mg/dL (8.4-10.2); Hemolysis Index 3
[2020-06-25 06:57] LABS: BUN/Creatinine Ratio 16
[2020-06-25] MEDS ORDERED: REGADENOSON 0.4 MG/5 ML INJ IV ONE ×2 (08:37→08:45)
--- NOTE | 2020-06-25 10:11 | Progress Note ---
Assessment and Plan NSVT and SVT, paroxysmal TSH 1.43. Mag 2.0. Drug overdose Obtain an echocardiogram for LVEF assessment. Will add low dose metoprolol for suppression of tachyarrhythmias. Subjective Date of service: 06/25/20 Principal diagnosis: Ac resp failure; Drug overdose; RUL atelectasis; Obesity. Interval history: Patient is resting in bed comfortably. Reports double vision. Denies SOB, denies palpitations, and denies chest pain. Overnight telemetry strips reviewed; there was short bursts of NSVT and an episode of SVT with heart rate in the 160. It is reported the patient was asymptomatic. Objective Vital Signs Temp Pulse Pulse Resp BP BP Pulse Ox 06/25/20 06:00 76 06/25/20 04:27 99.0 F 76 16 126/41 97 06/24/20 23:12 98.3 F 76 16 101/66 96 06/24/20 22:00 88 20 06/24/20 19:00 99.8 F H 82 18 110/61 99 06/24/20 16:27 98.9 F 86 101/65 18 L 06/24/20 10:48 98.9 F 83 20 92/53 99 - Physical Examination General: No Apparent Distress Cardiac: Positive: Reg Rate and Rhythm Neuro: Positive: Grossly Intact Extremities: Absent: edema - Labs and Meds Comprehensive Metabolic Panel 06/25/20 Range/Units 05:15 Sodium 141 (137-145) mmol/L Potassium 4.0 (3.6-5.0) mmol/L Chloride 105.6 (98-107) mmol/L Carbon Dioxide 27 (22-30) mmol/L BUN 8 (7-17) mg/dL Creatinine 0.5 L (0.6-1.2) mg/dL Glucose 97 (65-100) mg/dL Calcium 8.8 (8.4-10.2) mg/dL - Allied health notes Allied health notes reviewed: RT
--- NOTE | 2020-06-25 10:21 | Discharge Summary ---
Providers - Providers Date of Admission: 06/18/20 18:29 Attending physician: LUZ ELENA HENDERSON MD 06/18/20 16:32 Consult to Dietitian/Nutrition [CONS] Routine Physician Instructions: Reason For Exam: Reason for Consult: Evaluate nutritional intake 06/18/20 18:29 Consult to Physician [CONS] Routine Comment: Consulting Provider: NAEL MESSINA Physician Instructions: Reason For Exam: Critical Care Management 06/20/20 09:43 Consult to Dietitian/Nutrition [CONS] Routine Physician Instructions: Reason For Exam: Reason for Consult: Write/Manage Tube Feeding 06/21/20 14:40 Speech Therapy Evaluation and Treat [CONS] Routine Reason For Exam: Dysphagia evaluation 06/22/20 09:43 Consult to Mental Health [CONS] Routine Reason For Exam: acute pyschosis 06/22/20 11:46 Consult to Mental Health [CONS] Urgent Reason For Exam: altered mental status, agitation 06/22/20 16:30 Physical Therapy Evaluation and Treat [CONS] Routine Comment: Reason For Exam: post critical illness 06/23/20 09:21 Consult to Dietitian/Nutrition [CONS] Routine Physician Instructions: Reason For Exam: Reason for Consult: Write/Manage Tube Feeding 06/24/20 09:42 Consult to Physician [CONS] Routine Comment: Consulting Provider: ENEIDA OLIVO Physician Instructions: Reason For Exam: nsvt Primary care physician: GAMING CAGE CASHIER Hospitalization Reason for admission: acute respiratory Condition: Serious Hospital course: 34-year-old female brought in by EMS after being found unresponsive with suspicion of overdose. No significant past medical history. Patient has a history of abusing GHB and amphetamines. Patient was given Narcan 4 mg without any response. Patient vomited on the field airway was suctioned. Patient was given bag mask valve ventilation. There in the emergency room patient was intubated for protection of airway. Patient has bradypnea. No fever or chills. No exposure to coronavirus as far as known. No cough prior to unresponsive episode. 06/21: Still requiring ventilator support, But with improving, weaning trial today Although was noted to have Hypercarbia on ABG, still retaining urine, will straight cath today and re-evaluate. Counselling on substance abuse once extubated. 06/22: Profound encephalopathy still persist with some demonstration of acute psychosis. Psych will be consulted to assist with management. We will proceed with psych consult while awaiting patient to be awake before feeding. Speech has been consulted. Continue restraints at this time. I have also reached out to the patients mother for updates and left a message. 06/23: Patient seen and examined still lethargic, Will start on Tube feeding, stop IV fluids. Continue supportive care till more awake. : Patient much improved today. However did have a 9 beat V. tach. Cardiology consulted. Plan for stress test in a.m. considering drug abuse. Echocardiogram ordered. Will replace potassium as patient noted with mild hypokalemia. We will also give magnesium. 06/25: Patient refused stress test today states that she is unable to walk and that she has blurry vision although on my examination no blurry vision and perceived. I recommended an outpatient ophthalmology/optometry evaluation. She has been able to ambulate in the bedroom. She was able to eat her diet without assistance yesterday and today also. Other beta-ankita recommended at this time due to intermittent hypotension. I recommended outpatient cardiology evaluation ongoing for recommended stress test no strenuous activity until this is done patient verbalized understanding again 15 minutes of counseling provided to the patient on cessation of substance abuse (1) Acute respiratory failure with hypoxia (2) Amphetamine abuse/GHB/unintentional overdose (3) Acute metabolic encephalopathy (4) Nicotine dependence (5) LFT ELEVATED (6) vasogenic shock/without evidence of septic shock (7) NSVT Disposition: DC-30 STILL A PATIENT Time spent for discharge: 35 mins Core Measure Documentation - Palliative Care Palliative Care/ Comfort Measures: Not Applicable - Core Measures Any of the following diagnoses?: none Exam - Physical Exam Narrative exam: VITAL SIGNS: Reviewed. GENERAL: Sitting up tolerated her diet awake alert oriented x3 no acute distress HEAD: No signs of head trauma. EYES: Pupils are equal. EARS: Hearing grossly intact. MOUTH: Moist mucous membranes NECK: No adenopathy, no JVD. CHEST: Chest with clear breath sounds bilaterally. No wheezes, rales, or rhonchi. CARDIAC: Regular rate and rhythm. S1 and S2, without murmurs, gallops, or rubs. VASCULAR: No Edema. Peripheral pulses normal and equal in all extremities. ABDOMEN: Soft, non tender and non distended. No rebound or guarding, and no masses palpated. Bowel Sounds normal. MUSCULOSKELETAL: Good range of motion of all major joints. Extremities without clubbing, cyanosis or edema. NEUROLOGIC EXAM: follows some commands, no perceived weakness bilateral, moves all ext PSYCHIATRIC: Awake alert oriented x3 SKIN: detail exam as documented in skin assessment - Constitutional Vitals: Temp Pulse Resp BP Pulse Ox 99.0 F 76 16 126/41 97 06/25/20 04:27 06/25/20 06:00 06/25/20 04:27 06/25/20 04:27 06/25/20 04:27 Plan Activity: advance as tolerated (no strenous activity till evaluated by cardiology outpatient. ), fall precautions Diet: low fat Special Instructions: record daily weights, record daily BP diary, smoking cessation, other (Highly recommend rehab for drug abuse) Additional Instructions: must follow with custom feed corn operator or opthalmologist in 1-2 days for vision check Follow up with: NIDHI MELGAR MD [Primary Care Provider] - 7 Days ENEIDA OLIVO MD [Staff Physician] - 7 Days
[2020-06-25] MEDS: ENOXAPARIN 40 MG/0.4 ML INJ SUB-Q SCH (10:56)
[2020-06-25] MEDS: FAMOTIDINE 20 MG/2 ML INJ IV SCH (10:56)
[2020-06-25 12:01] VITALS: BP 110/60
[2020-06-25] MEDS ORDERED: METOPROLOL TARTRATE 25 MG TAB PO SCH (14:00)
== END 2020-06-25 14:45 | disposition home or self-care (01) | DRG 917 ==
LOC: ED 16:15 → CC1 18:29 → 4A 06-22 17:01
PROVIDERS: ADMIT Internal Medicine; ATTEND Internal Medicine
PROC: 0BH17EZ Insertion of Endotracheal Airway into Trachea, Via Natural or Artificial Opening (ICD-10-PCS; principal; 2020-06-18)
PROC: 5A1945Z Respiratory Ventilation, 24-96 Consecutive Hours (ICD-10-PCS; 2020-06-18)
PROC: 4A033R1 Measurement of Arterial Saturation, Peripheral, Percutaneous Approach (ICD-10-PCS; 2020-06-18)
DX: T43.621A Poisoning by amphetamines, accidental (unintentional), initial encounter (principal); G92 Toxic encephalopathy; J96.01 Acute respiratory failure with hypoxia; R57.8 Other shock; J96.02 Acute respiratory failure with hypercapnia; Z20.828 Contact with and (suspected) exposure to other viral communicable diseases; R13.12 Dysphagia, oropharyngeal phase; T41.291A Poisoning by other general anesthetics, accidental (unintentional), initial encounter; F29 Unspecified psychosis not due to a substance or known physiological condition; E66.01 Morbid (severe) obesity due to excess calories; Z68.37 Body mass index [BMI] 37.0-37.9, adult; J98.11 Atelectasis; E87.2 Acidosis; R79.89 Other specified abnormal findings of blood chemistry; I47.1 Supraventricular tachycardia; E87.6 Hypokalemia; F17.210 Nicotine dependence, cigarettes, uncomplicated; Z78.1 Physical restraint status
CPT/HCPCS: 36415; 36600; 70450; 71045; 72125; 74018; 76770; 80048; 80053; 80307; 80320; 81001; 81025; 82140; 82550; 82803; 82805; 82962; 83036; 83735; 84443; 84484; 85025; 85027; 87070; 87205; 93005; 93306; 94003; G0378; G0480; J0692; J1630; J1650; J2060; J2270; J2704; J2785; J3010; J3475; J3480; J7030; J7042; J7050; J7120; U0003